=== PATIENT | male | born 1965 | race Caucasian/White ===

== ENCOUNTER 2017-03-10 23:40 | Observation (INO) | payer MEDICAID ==
--- NOTE | 2017-03-11 00:05 | EDM.PDOC ---
ED HPI GENERAL MEDICAL PROBLEM - General Chief Complaint: Chest Pain Stated Complaint: Chest and jaw pain Time Seen by Provider: 03/10/17 23:41 Source of Information: Reports: Patient, RN, RN Notes Reviewed History Limitations: Reports: No Limitations - History of Present Illness INITIAL COMMENTS - FREE TEXT/NARRATIVE: Patient presents to the ED at [facility] complaining of chest pain and right/left jaw pain that started around 10 pm tonight. Patient states he took 4 SL Nitro prior to presentation. Patient states the Nitro did not help. He states he got a slight headache from taking the Nitro. Does have some nausea. No diarrhea or vomiting. No focal neurological deficits. Patient states he had SOB but resolved upon arrival. Patient has a history of heart valve replacement when he was 7 years old. He states he had heart stents placed about 3-4 years ago. He also has a history of respiratory failure that required intubation. Onset Date: 03/10/17 Onset Time: 22:00 Duration: Constant Location: Reports: Neck, Chest Quality: Reports: Dull, Pressure Severity: Moderate Improves with: Reports: None Worsens with: Reports: Movement Context: Denies: Activity, Exercise, Lifting, Sick Contact, Trauma Treatments TRAVEL INSURANCE AGENT: Reports: Nitroglycerin (x4 with no relief of symptoms) - Related Data Allergies Allergy/AdvReac Type Severity Reaction Status Date / Time No Known Allergies Allergy Verified 03/11/17 01:29 Home Meds: Home Meds Ibuprofen 400 mg PO Q4H PRN 09/01/14 [History] Aspirin [Damián Chewable] 81 mg PO DAILY 02/15/15 [History] Carvedilol [Coreg] 12.5 mg PO BID 02/15/15 [History] Clopidogrel [Plavix] 75 mg PO DAILY 02/15/15 [History] Ferrous Sulfate 325 mg PO DAILY 02/15/15 [History] Furosemide [Lasix] 20 mg PO DAILY 02/15/15 [History] Levothyroxine [Sythroid] 100 mcg PO DAILY 02/15/15 [History] Nitroglycerin [Nitrostat] 0.4 mg SL Q5M 02/15/15 [History] SitaGLIPtin [Januvia] 50 mg PO BID 02/15/15 [History] atorvaSTATin [Lipitor] 80 mg PO DAILY 02/15/15 [History] metFORMIN [Glucophage] 1,000 mg PO BIDMEALS 02/15/15 [History] Past Medical History Cardiovascular History: Reports: Heart Valve Replacement, Hypertension, [place], Stents Respiratory History: Reports: Intubation, Previous, Other (See Below) ( Respiratory failure) Social & Family History - Family History Family Medical History: Noncontributory - Tobacco Use Smoking Status *Q: Current Every Day Smoker Years of Tobacco use: 25 Used Tobacco, but Quit: No Second Hand Smoke Exposure: Yes - Tobacco Core Measures Tobacco Use/Smoking Within Last 30 Days: Refused Screening - Alcohol Use Days Per Week of Alcohol Use: 0 - Recreational Drug Use Recreational Drug Use: No Drug Use in Last 12 Months: No ED ROS GENERAL - Review of Systems Review Of Systems: See Below Constitutional: Denies: Fever, Chills, Weakness Respiratory: Reports: Shortness of Breath. Denies: Cough, Sputum Cardiovascular: Reports: Chest Pain, Blood Pressure Problem, Lightheadedness, Orthopnea, Palpitations. Denies: Edema GI/Abdominal: Reports: Nausea. Denies: Abdominal Pain, Diarrhea, Vomiting Skin: Reports: No Symptoms Neurological: Reports: Headache. Denies: Dizziness, Numbness, Paresthesia, Tingling ED EXAM, GENERAL - Physical Exam Exam: See Below Exam Limited By: No Limitations General Appearance: Alert, Anxious Respiratory/Chest: No Respiratory Distress, Lungs Clear, Decreased Breath Sounds Cardiovascular: Tachycardia, Extra Beats Peripheral Pulses: 2+: Radial (L), Radial (R) GI/Abdominal: Soft, Non-Tender, Abnormal Bowel Sounds (Hypoactive) Neurological: Alert, Oriented Skin Exam: Warm, Dry, Intact, Normal Color, No Rash EKG INTERPRETATION EKG Date: 03/10/17 Time: 23:48 Rhythm: a-fib Rate (beats/min): 165 [place]: normal P-wave: absent QRS: RBBB ST-T: depressed QT: normal KS/PQ Interval: Absent EKG Interpretation Comments: Atrial Fibrillation with Rapid Ventricular Response Pattern consistent with pulmonary disease Incomplete RBBB Possible RVH ST depression, consider subendocardial injury EKG #2 03/11/2017 01:38 Sinus Rhythm Incomplete RBBB Possible RVH Septal MD ST Depression, consider subendocardial injury Course - Orders/Labs/Meds Orders: Active Orders 24 hr Category Date Time Status EKG 12 Lead [EKG Documentation Completion] [RC] STAT Care 03/11/17 01:27 Active Chest 1V Frontal [CR] Stat Exams 03/11/17 00:30 Taken Magnesium Sulfate/Water [Magnesium Sulfate 2 GM in Med 03/11/17 01:15 Active Water 50 ML] 2 gm Premix Bag 1 bag IV ONETIME Sodium Chloride 0.9% [Normal Saline] 1,000 ml Med 03/11/17 00:15 Active IV ASDIRECTED Sodium Chloride 0.9% [Saline Flush] Med 03/11/17 00:06 Active 10 ml FLUSH ASDIRECTED PRN Peripheral IV Insertion Adult [OM.PC] Routine Oth 03/11/17 00:06 Ordered Medication Orders Sodium Chloride (Normal Saline) 1,000 mls @ 999 mls/hr IV ASDIRECTED SHALINI Magnesium Sulfate 2 gm/ Premix 50 mls @ 25 mls/hr IV ONETIME ONE Stop: 03/11/17 03:14 Sodium Chloride (Saline Flush) 10 ml FLUSH ASDIRECTED PRN PRN Reason: Keep Vein Open Labs: Laboratory Tests 03/11/17 03/11/17 03/11/17 Range/Units 00:27 00:27 00:27 WBC 13.5 H (4.0-10.0) x10^3/uL RBC 4.83 (4.5-6.0) x10^6/uL Hgb 13.4 L (14.0-18.0) g/dL Hct 40.6 (40.0-52.0) % MCV 84.1 D (78.0-93.0) fL MCH 27.7 (26.0-32.0) pg MCHC 33.0 (32.0-36.0) g/dL RDW Coeff of Prashant 17.1 H (10.0-15.0) % Plt Count 268 D (130-400) x10^3/uL Neut % (Auto) 79.1 (50.0-80.0) % Lymph % (Auto) 13.7 L (25.0-50.0) % [place] % (Auto) 6.6 (2.0-11.0) % Eos % (Auto) 0.5 (0.0-4.0) % Baso % (Auto) 0.1 L (0.2-1.2) % Sodium 139 (136-145) mmol/L Potassium 3.6 (3.5-5.1) mmol/L Chloride 101 (98-107) mmol/L Carbon Dioxide 23 (21-32) mmol/L BUN 29 H (7-18) mg/dL Creatinine 1.2 (0.70-1.30) mg/dL Est Cr Clr Drug Dosing TNP Estimated GFR (MDRD) > 60 Glucose 245 H (74-106) mg/dL Lactic Acid 3.6 H (0.4-2.0) mmol/L Calcium 8.8 (8.5-10.1) mg/dL Phosphorus 3.3 (2.6-4.7) mg/dL Magnesium 1.5 L (1.8-2.4) mg/dL Creatine Kinase 59 (39-308) U/L Creatine Kinase Index 3.9 (0.0-4.0) % CK-MB (CK-2) 2.3 (0.0-3.6) ng/mL POC Troponin I (0.00-0.08) ng/mL C-Reactive Protein 1.0 H (<=0.9) mg/dL 03/11/17 Range/Units 00:33 WBC (4.0-10.0) x10^3/uL RBC (4.5-6.0) x10^6/uL Hgb (14.0-18.0) g/dL Hct (40.0-52.0) % MCV (78.0-93.0) fL MCH (26.0-32.0) pg MCHC (32.0-36.0) g/dL RDW Coeff of Prashant (10.0-15.0) % Plt Count (130-400) x10^3/uL Neut % (Auto) (50.0-80.0) % Lymph % (Auto) (25.0-50.0) % [place] % (Auto) (2.0-11.0) % Eos % (Auto) (0.0-4.0) % Baso % (Auto) (0.2-1.2) % Sodium (136-145) mmol/L Potassium (3.5-5.1) mmol/L Chloride (98-107) mmol/L Carbon Dioxide (21-32) mmol/L BUN (7-18) mg/dL Creatinine (0.70-1.30) mg/dL Est Cr Clr Drug Dosing Estimated GFR (MDRD) Glucose (74-106) mg/dL Lactic Acid (0.4-2.0) mmol/L Calcium (8.5-10.1) mg/dL Phosphorus (2.6-4.7) mg/dL Magnesium (1.8-2.4) mg/dL Creatine Kinase (39-308) U/L Creatine Kinase Index (0.0-4.0) % CK-MB (CK-2) (0.0-3.6) ng/mL POC Troponin I 0.06 (0.00-0.08) ng/mL C-Reactive Protein (<=0.9) mg/dL Meds: Medications Generic Name Dose Route Start Last Admin Trade Name Freq PRN Reason Stop Dose Admin Sodium Chloride 1,000 mls @ 999 mls/hr 03/11/17 00:15 Normal Saline IV ASDIRECTED SHALINI Magnesium Sulfate 2 gm/ Premix 50 mls @ 25 mls/hr 03/11/17 01:15 IV 03/11/17 03:14 ONETIME ONE Sodium Chloride 10 ml 03/11/17 00:06 Saline Flush FLUSH ASDIRECTED PRN Keep Vein Open Discontinued Medications Generic Name Dose Route Start Last Admin Trade Name Freq PRN Reason Stop Dose Admin Diltiazem HCl 20 mg 03/11/17 00:07 Diltiazem IVPUSH 03/11/17 00:08 ONETIME ONE - Radiology Interpretation Free Text/Narrative:: CXR: Possible cardiomegaly and pulmonary edema - see scanned report in EMR Departure - Departure Time of Disposition: 01:58 Disposition: Refer to Observation Condition: fair Clinical Impression: Uncontrolled atrial fibrillation, Hypomagnesemia Hyperglycemia due to type 2 diabetes mellitus Qualifiers: Diabetes mellitus nursing home insulin use: without intermodal dispatcher use Qualified Code(s ): E11.65 - Type 2 diabetes mellitus with hyperglycemia - Problem List Review Problem List Initiated/Reviewed/Updated: Yes - My Orders Last 24 Hours: My Active Orders 03/11/17 00:06 Sodium Chloride 0.9% [Saline Flush] 10 ml FLUSH ASDIRECTED PRN Peripheral IV Insertion Adult [OM.PC] Routine 03/11/17 00:15 Sodium Chloride 0.9% [Normal Saline] 1,000 ml IV ASDIRECTED 03/11/17 00:30 Chest 1V Frontal [CR] Stat 03/11/17 01:15 Magnesium Sulfate/Water [Magnesium Sulfate 2 GM in Water 50 ML] 2 gm Premix Bag 1 bag IV ONETIME 03/11/17 01:27 EKG 12 Lead [EKG Documentation Completion] [RC] STAT - Assessment/Plan Admission H&P: Please use this note as an admission H&P Last 24 Hours: My Active Orders 03/11/17 00:06 Sodium Chloride 0.9% [Saline Flush] 10 ml FLUSH ASDIRECTED PRN Peripheral IV Insertion Adult [OM.PC] Routine 03/11/17 00:15 Sodium Chloride 0.9% [Normal Saline] 1,000 ml IV ASDIRECTED 03/11/17 00:30 Chest 1V Frontal [CR] Stat 03/11/17 01:15 Magnesium Sulfate/Water [Magnesium Sulfate 2 GM in Water 50 ML] 2 gm Premix Bag 1 bag IV ONETIME 03/11/17 01:27 EKG 12 Lead [EKG Documentation Completion] [RC] STAT Plan: Discussed labs, EKG, and xray with patient. I did recommend being transferred and seen in [place]. Patient did refuse and only wants to be admitted at [facility].
[2017-03-11] MEDS ORDERED: Sodium Chloride 0.9% 10 ML Syringe FLUSH PRN (00:06)
[2017-03-11] MEDS ORDERED: Diltiazem 25 MG/5 ML SDV IVPUSH ONE (00:07)
[2017-03-11] MEDS ORDERED: Sodium Chloride 0.9% 1,000 ML IV SCH (00:15)
[2017-03-11 01:03] LABS: CHLORIDE,CL 101 mmol/L (98-107); SODIUM,NA 139 mmol/L (136-145)
[2017-03-11] MEDS ORDERED: Magnesium Sulfate/Water 2 GM in Premix Bag 1 BAG IV ONE (01:15)
[2017-03-11] MEDS ORDERED: Polyethylene Glycol 3350 Powder 17 GM Packet PO PRN (02:29)
[2017-03-11] MEDS ORDERED: Acetaminophen 325 MG Tab PO PRN (02:29)
[2017-03-11] MEDS ORDERED: Ondansetron 4 MG Tab.DIS PO PRN (02:29)
[2017-03-11] MEDS ORDERED: Docusate Sodium 100 MG Cap PO PRN (02:29)
--- NOTE | 2017-03-11 02:41 | PCM.HP ---
H&P History of Present Illness - General Date of Service: 03/11/17 Admit Problem/Dx: Uncontrolled Afib Hypomagnesia Hyperglycemia Source of Information: Patient, RN, RN Notes Reviewed History Limitations: Reports: No Limitations - History of Present Illness Initial Comments - Free Text/Narative: Patient presents to the ED at [facility] per ped complaining of chest pain and right/left jaw pain that started around 10 pm tonight. Patient states he took 4 SL Nitro prior to presentation. Patient states the Nitro did not help. He states he got a slight headache from taking the Nitro. Does have some nausea. No diarrhea or vomiting. No focal neurological deficits. Patient states he had SOB but resolved upon arrival. Patient has a history of heart valve replacement when he was 7 years old. He states he had heart stents placed about 3-4 years ago. He also has a history of respiratory failure that required intubation. During his ER admission, initial EKG showed uncontrolled Afib with a rate in the 170's, so patient received 20 mg of IV Cardizem and did convert to a NSR in the 80's. Blood pressure was much improved after Cardizem as well. Chest discomfort and jaw pain also resolved. Symptom Onset Date: 03/10/17 mid sternal chest Pain Score (Numeric/FACES): 5 Bilateral jaw Pain Score (Numeric/FACES): 8 - Related Data Allergies/Adverse Reactions: Allergies Allergy/AdvReac Type Severity Reaction Status Date / Time No Known Allergies Allergy Verified 03/11/17 02:01 Home Medications: Home Meds Ibuprofen 400 mg PO Q4H PRN 09/01/14 [History] Aspirin [Damián Chewable] 81 mg PO DAILY 02/15/15 [History] Carvedilol [Coreg] 12.5 mg PO BID 02/15/15 [History] Clopidogrel [Plavix] 75 mg PO DAILY 02/15/15 [History] Ferrous Sulfate 325 mg PO DAILY 02/15/15 [History] Furosemide [Lasix] 20 mg PO DAILY 02/15/15 [History] Levothyroxine [Sythroid] 100 mcg PO DAILY 02/15/15 [History] Nitroglycerin [Nitrostat] 0.4 mg SL Q5M 02/15/15 [History] SitaGLIPtin [Januvia] 50 mg PO BID 02/15/15 [History] atorvaSTATin [Lipitor] 80 mg PO DAILY 02/15/15 [History] metFORMIN [Glucophage] 1,000 mg PO BIDMEALS 02/15/15 [History] Past Medical History Cardiovascular History: Reports: Heart Valve Replacement, Hypertension, [place], Stents Respiratory History: Reports: Intubation, Previous, Other (See Below) ( Respiratory failure) Social & Family History - Family History Family Medical History: Noncontributory - Tobacco Use Smoking Status *Q: Current Every Day Smoker Years of Tobacco use: 25 Used Tobacco, but Quit: No Second Hand Smoke Exposure: Yes - Alcohol Use Days Per Week of Alcohol Use: 0 - Recreational Drug Use Recreational Drug Use: No Drug Use in Last 12 Months: No - Sexual History Sexual History: Reports: None - Living Situation & Occupation Living situation: Reports: Single, with Family Occupation: Unemployed H&P Review of Systems - Review of Systems: Review Of Systems: See Below General: Denies: Fever, Chills, Weakness Pulmonary: Reports: Shortness of Breath. Denies: Cough, Sputum Cardiovascular: Reports: Palpitations, Blood Pressure Problem. Denies: Chest Pain Gastrointestinal: Reports: No Symptoms. Denies: Abdominal Pain, Nausea, Vomiting Skin: Reports: No Symptoms Neurological: Reports: No Symptoms. Denies: Dizziness, Headache, Numbness, Paresthesia, Tingling Exam - Exam Exam: See Below - Vital Signs Vital Signs: Last Vital Signs Temp 36.4 C 03/10/17 23:40 Pulse 164 H 03/10/17 23:40 Resp 14 03/10/17 23:40 BP 144/122 H 03/10/17 23:40 Pulse Ox 95 03/11/17 02:20 Weight: 108.862 kg - Exam General: Alert, Oriented Lungs: Clear to Auscultation, Normal Respiratory Effort, Decreased Breath Sounds Cardiovascular: Regular Rate, Regular Rhythm, Normal S1, Normal S2 Abdomen: Soft, Hypoactive Bowel Sounds. No: Tenderness Extremities: Normal Inspection, Normal Pulses Skin: Warm, Dry, Intact Neuro Extensive - Mental Status: Alert, Oriented x3 - Patient Data Result Diagrams: 03/11/17 00:27 03/11/17 00:27 *Q Meaningful Use (ADM) - VTE *Q VTE Criteria *Q: Patient is already taking Coumadin - VTE Risk Assess *Q Each Risk Factor Represents 1 Point: Age 41 - 59 years, Obesity (BMI greater than 30) Total Score 1 Point Risk Factors: 2 - Stroke *Q Stroke Criteria *Q: Patient is already taking Coumadin daily Aspirin Contraindications Stroke *Q: Other (Use Special Inst) (Patient currently taking Coumadin daily) - AMI *Q AMI Criteria *Q: - Problem List (1) Uncontrolled atrial fibrillation SNOMED Code(s): 560230829 ICD Code: I48.91 - UNSPECIFIED ATRIAL FIBRILLATION Status: Acute Priority : High Current Visit: Yes Onset Date: ~03/10/17 Problem Details: Patient already diagnosed with Afib; uncontrolled today and will need rate control (2) Hypomagnesemia SNOMED Code(s): 029324249 ICD Code: E83.42 - HYPOMAGNESEMIA Status: Acute Priority: Medium Current Visit: Yes Onset Date: ~03/10/17 (3) Hyperglycemia due to type 2 diabetes mellitus SNOMED Code(s): 580668392911541, 504647348225655 ICD Code: E11.65 - TYPE 2 DIABETES MELLITUS WITH HYPERGLYCEMIA Status: Chronic Priority: Medium Current Visit: Yes Qualifiers: Diabetes mellitus custodial insulin use: without custodial use Qualified Code(s): E11.65 - Type 2 diabetes mellitus with hyperglycemia (4) CHF, Congestive heart failure SNOMED Code(s): 81078640 ICD Code: I50.9 - HEART FAILURE, UNSPECIFIED Status: Chronic Current Visit: No (5) COPD, Moderate chronic obstructive pulmonary disease SNOMED Code(s): 914059899 ICD Code: J44.9 - CHRONIC OBSTRUCTIVE PULMONARY DISEASE, UNSPECIFIED Status : Chronic Current Visit: No Problem List Initiated/Reviewed/Updated: Yes Orders Last 24hrs: Active Orders 24 hr Category Date Time Status Ambulate [RC] ASDIRECTED Care 03/11/17 02:29 Ordered Blood Glucose Check, Bedside [RC] QIDACANDBED Care 03/11/17 02:29 Ordered Cardiac Monitoring [RC] CONTINUOUS Care 03/11/17 02:30 Ordered EKG 12 Lead [EKG Documentation Completion] [RC] ROUTINE Care 03/11/17 08:00 Ordered EKG 12 Lead [EKG Documentation Completion] [RC] STAT Care 03/11/17 01:35 Active Height and Weight [RC] UPON Care 03/11/17 02:29 Ordered Intake and Output [RC] QSHIFT Care 03/11/17 02:30 Ordered May Shower [RC] ASDIRECTED Care 03/11/17 02:29 Ordered Oxygen Therapy [RC] PRN Care 03/11/17 02:29 Ordered VTE/DVT Education [RC] PER UNIT ROUTINE Care 03/11/17 02:29 Ordered Vital Signs [RC] Q4H Care 03/11/17 02:29 Ordered [place] [employer] Diet [DIET] Diet 03/11/17 Breakfast Ordered B-TYPE NATRIURETIC PEPTIDE,BNP [CHEM] Routine Lab 03/11/17 05:11 Ordered BASIC METABOLIC PANEL,BMP [CHEM] Routine Lab 03/11/17 05:11 Ordered CBC WITH AUTO DIFF [HEME] Routine Lab 03/11/17 05:11 Ordered CK W CKMB [CHEM] Routine Lab 03/11/17 05:11 Ordered INR,PT,PROTHROMBIN TIME [COAG] Routine Lab 03/11/17 05:11 Ordered MAGNESIUM [CHEM] Routine Lab 03/11/17 05:11 Ordered TROPONIN I [CHEM] Routine Lab 03/11/17 05:11 Ordered Acetaminophen [Tylenol] Med 03/11/17 02:29 Ordered 650 mg PO Q4H PRN Digoxin [Lanoxin] Med 03/11/17 02:45 Ordered 125 mcg PO DAILY Docusate Sodium [Colace] Med 03/11/17 02:29 Ordered 100 mg PO BID PRN Ondansetron [Zofran ODT] Med 03/11/17 02:29 Ordered 4 mg PO Q6H PRN Polyethylene Glycol 3350 [MiraLAX] Med 03/11/17 02:29 Ordered 17 gm PO DAILY PRN Resuscitation Status Routine Resus Stat 03/11/17 02:29 Ordered Medication Orders Acetaminophen (Tylenol) 650 mg PO Q4H PRN PRN Reason: Pain (Mild 1-3)/fever Digoxin (Lanoxin) 125 mcg PO DAILY SHALINI Docusate Sodium (Colace) 100 mg PO BID PRN PRN Reason: Constipation Sodium Chloride (Normal Saline) 1,000 mls @ 999 mls/hr IV ASDIRECTED [facility] Last Admin: 03/11/17 01:00 Dose: 999 mls/hr Magnesium Sulfate 2 gm/ Premix 50 mls @ 25 mls/hr IV ONETIME ONE Stop: 03/11/17 03:14 Last Admin: 03/11/17 02:28 Dose: 25 mls/hr Ondansetron HCl (Zofran Odt) 4 mg PO Q6H PRN PRN Reason: nausea, able to take PO Polyethylene Glycol (Miralax) 17 gm PO DAILY PRN PRN Reason: Constipation Sodium Chloride (Saline Flush) 10 ml FLUSH ASDIRECTED PRN PRN Reason: Keep Vein Open Assessment/Plan Comment:: 51 yo male with a PMH of DM Type II, COPD, CHF, and Afib currently on Coumadin is admitted for uncontrolled Afib, Hypomagnesia, and Hyperglycemia in the setting of DM Type II. No IVF is warrant. Will start patient on Digoxin for rate control. Continue all medications from home. Check blood sugars QIDAC and HS. Early ambulation for DVT prophylaxis and continue Coumadin. Start telemetry for continued monitoring. Patient wishes to be a Code I. Patient would not like to be transferred to a higher level of care during this admission if at all possible. I believe patient will be admitted for <48 hours. Will continue home medications for chronic medical problems. No changes needed at this time.
[2017-03-11] MEDS: Digoxin 125 MCG Tab PO SCH ×2 (03:00→08:53)
[2017-03-11 07:16] LABS: CHLORIDE,CL 104 mmol/L (98-107); SODIUM,NA 140 mmol/L (136-145)
[2017-03-11] MEDS ORDERED: Heparin Sodium/0.45% NaCl 25,000 UNITS/500 ML BAG IV SCH ×2 (08:15→08:30)
--- NOTE | 2017-03-11 08:25 | PCM.DCSUM1 ---
Discharge Summary - Hospital Course HPI Initial Comments: Patient presents to the ED at [facility] per [facility]meet complaining of chest pain and right/left jaw pain that started around 10 pm tonight. Patient states he took 4 SL Nitro prior to presentation. Patient states the Nitro did not help. He states he got a slight headache from taking the Nitro. Does have some nausea. No diarrhea or vomiting. No focal neurological deficits. Patient states he had SOB but resolved upon arrival. Patient has a history of heart valve replacement when he was 7 years old. He states he had heart stents placed about 3-4 years ago. He also has a history of respiratory failure that required intubation. During his ER admission, initial EKG showed uncontrolled Afib with a rate in the 170's, so patient received 20 mg of IV Cardizem and did convert to a NSR in the 80's. Blood pressure was much improved after Cardizem as well. Chest discomfort and jaw pain also resolved. - Discharge Data Discharge Date: 03/11/17 Discharge Disposition: Home, Self-Care 01 Condition: Good - Discharge Diagnosis/Problem(s) (1) Uncontrolled atrial fibrillation SNOMED Code(s): 311143487 ICD Code: I48.91 - UNSPECIFIED ATRIAL FIBRILLATION Status: Acute Priority : High Current Visit: Yes Onset Date: ~03/10/17 Problem Details: Patient already diagnosed with Afib; uncontrolled today and will need rate control (2) Hypomagnesemia SNOMED Code(s): 890691296 ICD Code: E83.42 - HYPOMAGNESEMIA Status: Acute Priority: Medium Current Visit: Yes Onset Date: ~03/10/17 (3) Hyperglycemia due to type 2 diabetes mellitus SNOMED Code(s): 317995095203990, 186116740402694 ICD Code: E11.65 - TYPE 2 DIABETES MELLITUS WITH HYPERGLYCEMIA Status: Chronic Priority: Medium Current Visit: Yes Qualifiers: Diabetes mellitus [employer] insulin use: without [employer] use Qualified Code(s): E11.65 - Type 2 diabetes mellitus with hyperglycemia (4) CHF, Congestive heart failure SNOMED Code(s): 56970467 ICD Code: I50.9 - HEART FAILURE, UNSPECIFIED Status: Chronic Current Visit: No (5) COPD, Moderate chronic obstructive pulmonary disease SNOMED Code(s): 164768592 ICD Code: J44.9 - CHRONIC OBSTRUCTIVE PULMONARY DISEASE, UNSPECIFIED Status : Chronic Current Visit: No (6) Elevated troponin SNOMED Code(s): 104323500, 624159867 ICD Code: R74.8 - ABNORMAL LEVELS OF OTHER SERUM ENZYMES Status: Acute Priority: High Current Visit: Yes Onset Date: ~03/11/17 - Patient Summary/Data Operative Procedure(s) Performed: None Labs Pending at D/C: None Planned Operative Procedure(s) after DC: Angiogram Hospital Course: Elevated Troponin of 16.281 this AM. Patient is currently chest pain free and no EKG changes. Discussed case with Dr. Madison, Cardiology and Dr. Jones, admitting provider. It is not felt this is a true [place] given history of CHF, pain free, and no EKG changes. Patient will be monitored in [place] with possible further work up. - Patient Instructions Diet: NPO Activity: Bedrest Driving: Do Not Drive Showering/Bathing: Shower in AM - Discharge Plan Home Medications: Home Meds Ibuprofen 400 mg PO Q4H PRN 09/01/14 [History] Aspirin [Damián Chewable] 81 mg PO DAILY 02/15/15 [History] Carvedilol [Coreg] 12.5 mg PO BID 02/15/15 [History] Clopidogrel [Plavix] 75 mg PO DAILY 02/15/15 [History] Ferrous Sulfate 325 mg PO DAILY 02/15/15 [History] Furosemide [Lasix] 20 mg PO DAILY 02/15/15 [History] Levothyroxine [Sythroid] 100 mcg PO DAILY 02/15/15 [History] Nitroglycerin [Nitrostat] 0.4 mg SL Q5M 02/15/15 [History] SitaGLIPtin [Januvia] 50 mg PO BID 02/15/15 [History] atorvaSTATin [Lipitor] 80 mg PO DAILY 02/15/15 [History] metFORMIN [Glucophage] 1,000 mg PO BIDMEALS 02/15/15 [History] Forms: Interfacility Transfer EMTALA Referrals: Jimmy Dominguez MD [ED Physician] - - Discharge Summary/Plan Comment DC Time >30 min.: No - General Info Date of Service: 03/11/17 Functional Status: Reports: pain controlled, urinating - Review of Systems General: Denies: Fever, Weakness, Fatigue Pulmonary: Denies: shortness of breath, hemoptysis Cardiovascular: Denies: Chest Pain, Palpitations, Lightheadedness Gastrointestinal: Denies: Abdominal pain, Nausea, Vomiting Skin: Reports: no symptoms Neurological: Reports: No Symptoms. Denies: Headache, Numbness, Paresthesia, Tingling - Patient Data Vitals - Most Recent: Last Vital Signs Temp 36.2 C 03/11/17 06:00 Pulse 71 03/11/17 06:00 Resp 18 03/11/17 06:00 BP 100/47 L 03/11/17 06:00 Pulse Ox 98 03/11/17 07:45 Weight - Most Recent: 108.862 kg I&O - Last 24 hours: Intake & Output 03/10/17 03/11/17 03/11/17 22:59 06:59 14:59 Intake Total 540 Output Total 300 Balance 240 Lab Results - Last 24 hrs: Laboratory Results - last 24 hr 03/11/17 03/11/17 03/11/17 Range/Units 06:18 06:19 06:19 WBC 9.0 (4.0-10.0) x10^3/uL RBC 4.46 L (4.5-6.0) x10^6/uL Hgb 12.3 L (14.0-18.0) g/dL Hct 37.7 L (40.0-52.0) % MCV 84.5 (78.0-93.0) fL MCH 27.6 (26.0-32.0) pg MCHC 32.6 (32.0-36.0) g/dL RDW Coeff of Prashant 16.9 H (10.0-15.0) % Plt Count 239 (130-400) x10^3/uL Neut % (Auto) 74.5 (50.0-80.0) % Lymph % (Auto) 15.8 L (25.0-50.0) % [place] % (Auto) 8.5 (2.0-11.0) % Eos % (Auto) 1.1 (0.0-4.0) % Baso % (Auto) 0.1 L (0.2-1.2) % PT 27.3 H D (10.0-12.8) SEC INR 2.4 (2.0-3.5) Sodium (136-145) mmol/L Potassium (3.5-5.1) mmol/L Chloride (98-107) mmol/L Carbon Dioxide (21-32) mmol/L BUN (7-18) mg/dL Creatinine (0.70-1.30) mg/dL Est Cr Clr Drug Dosing mL/min Estimated GFR (MDRD) Glucose (74-106) mg/dL POC Glucose 132 H (74-106) mg/dL Hemoglobin A1c (4.5-6.2) % Calcium (8.5-10.1) mg/dL Magnesium (1.8-2.4) mg/dL Creatine Kinase (39-308) U/L Creatine Kinase Index (0.0-4.0) % CK-MB (CK-2) (0.0-3.6) ng/mL Troponin I (<=0.056) ng/mL B-Natriuretic Peptide (<=125) pg/mL 03/11/17 03/11/17 Range/Units 06:19 06:19 WBC (4.0-10.0) x10^3/uL RBC (4.5-6.0) x10^6/uL Hgb (14.0-18.0) g/dL Hct (40.0-52.0) % MCV (78.0-93.0) fL MCH (26.0-32.0) pg MCHC (32.0-36.0) g/dL RDW Coeff of Prashant (10.0-15.0) % Plt Count (130-400) x10^3/uL Neut % (Auto) (50.0-80.0) % Lymph % (Auto) (25.0-50.0) % [place] % (Auto) (2.0-11.0) % Eos % (Auto) (0.0-4.0) % Baso % (Auto) (0.2-1.2) % PT (10.0-12.8) SEC INR (2.0-3.5) Sodium 140 (136-145) mmol/L Potassium 3.9 (3.5-5.1) mmol/L Chloride 104 (98-107) mmol/L Carbon Dioxide 27 (21-32) mmol/L BUN 29 H (7-18) mg/dL Creatinine 1.1 (0.70-1.30) mg/dL Est Cr Clr Drug Dosing 70.08 mL/min Estimated GFR (MDRD) > 60 Glucose 137 H (74-106) mg/dL POC Glucose (74-106) mg/dL Hemoglobin A1c 6.9 H (4.5-6.2) % Calcium 8.5 (8.5-10.1) mg/dL Magnesium 2.1 (1.8-2.4) mg/dL Creatine Kinase 525 H* (39-308) U/L Creatine Kinase Index 11.9 H (0.0-4.0) % CK-MB (CK-2) 62.5 H (0.0-3.6) ng/mL Troponin I 16.281 H* (<=0.056) ng/mL B-Natriuretic Peptide 1224 H (<=125) pg/mL Med Orders - Current: Current Medications Acetaminophen (Tylenol) 650 mg PO Q4H PRN PRN Reason: Pain (Mild 1-3)/fever Digoxin (Lanoxin) 125 mcg PO DAILY [facility] Last Admin: 03/11/17 03:00 Dose: 125 mcg Docusate Sodium (Colace) 100 mg PO BID PRN PRN Reason: Constipation Sodium Chloride (Normal Saline) 1,000 mls @ 999 mls/hr IV ASDIRECTED [facility] Last Admin: 03/11/17 01:00 Dose: 999 mls/hr Ondansetron HCl (Zofran Odt) 4 mg PO Q6H PRN PRN Reason: nausea, able to take PO Polyethylene Glycol (Miralax) 17 gm PO DAILY PRN PRN Reason: Constipation Sodium Chloride (Saline Flush) 10 ml FLUSH ASDIRECTED PRN PRN Reason: Keep Vein Open Discontinued Medications Diltiazem HCl (Diltiazem) 20 mg IVPUSH ONETIME ONE Stop: 03/11/17 00:08 Last Admin: 03/11/17 01:08 Dose: 20 mg Magnesium Sulfate 2 gm/ Premix 50 mls @ 25 mls/hr IV ONETIME ONE Stop: 03/11/17 03:14 Last Admin: 03/11/17 02:28 Dose: 25 mls/hr Heparin Sodium/Sodium Chloride (Heparin 25,000 Units In 1/2 Ns 500 Ml) 25,000 units in 500 mls @ 8,708.973 mls/hr IV TITRATE SHALINI; 4,000 UNITS/KG/HR PRN Reason: Protocol - Exam Quality Assessment: Reports: supplemental oxygen General: Reports: alert, oriented Neck: Reports: supple Lungs: Reports: Normal respiratory effort, Decreased breath sounds Cardiovascular: Reports: Regular Rate, Regular Rhythm, No Murmurs Abdomen: Reports: soft, no tenderness, abnormal bowel sounds (Hypoactive) Skin: Reports: warm, dry, intact Neurological: Reports: no new focal deficit EKG INTERPRETATION EKG Date: 03/11/17 Time: 07:34 Rhythm: NSR Rate (beats/min): 81 [place]: normal P-wave: present QRS: normal ST-T: normal QT: normal CA/PQ Interval: 0.18 Comparison: no change EKG Interpretation Comments: Sinus Rhythm Indeterminate axis Lateral ST-T changes are nonspecific *Q Meaningful Use (DIS) - VTE *Q VTE Criteria *Q: Currently on Coumadin, ASA, Plavix - Stroke *Q Stroke Criteria *Q: Aspirin Contraindications Stroke *Q: Other (Use Special Inst) (Patient currently taking Coumadin daily) - AMI *Q AMI Criteria *Q: Current on Coumadin, ASA, Plavix
[2017-03-11 10:09] VITALS: BP 102/56
== END 2017-03-11 10:35 | disposition home or self-care (01) ==
LOC: VM.ED 23:40 → VM.MS 03-11 02:00
PROVIDERS: ADMIT Nurse Practitioner Family; ATTEND Nurse Practitioner Family
DX: R07.9 Chest pain, unspecified (principal); R68.84 Jaw pain; F17.210 Nicotine dependence, cigarettes, uncomplicated; I48.91 Unspecified atrial fibrillation; E83.42 Hypomagnesemia; E11.65 Type 2 diabetes mellitus with hyperglycemia; I50.9 Heart failure, unspecified; J44.9 Chronic obstructive pulmonary disease, unspecified; R74.8 Abnormal levels of other serum enzymes; Z79.84 Long term (current) use of oral hypoglycemic drugs; Z79.82 Long term (current) use of aspirin; Z79.02 Long term (current) use of antithrombotics/antiplatelets; Z79.899 Other long term (current) drug therapy
CPT/HCPCS: 36415; 71010; 80048; 82550; 82553; 82962; 83036; 83605; 83735; 83880; 84100; 84443; 84484; 85025; 85610; 86140; 93005; 94760; 96361; 96365; 96366; 96367; 96375; 99285; A9270; G0378; J1644; J7030; 96374; J3475; J3490

== ENCOUNTER 2017-03-27 13:12 | Emergency (ER) | payer MEDICAID ==
[2017-03-27 13:24] VITALS: BP 128/70
--- NOTE | 2017-03-27 13:24 | EDM.PDOC ---
ED HPI GENERAL MEDICAL PROBLEM - General Chief Complaint: Chest Pain Stated Complaint: Chest Pain Time Seen by Provider: 03/27/17 13:12 Source of Information: Reports: Patient, Provider, RN, RN Notes Reviewed History Limitations: Reports: No Limitations - History of Present Illness INITIAL COMMENTS - FREE TEXT/NARRATIVE: Patient is brought to the ED at [facility] from the [facility] with complaints of chest pain. Patient was seen in this ED 2 weeks ago for chest pain and was sent to [facility]. During his stay, his cardiac cath showed 80% mid RCA stenosis, therefore, 1 stent were placed to the mid RCA at that time. Patient was discharge home in satisfactory condition. He was advised to stop taking ASA in one month since he is already on Coumadin. Patient states his chest pain started last night. He did take 1 nitro SL which completely relieved his chest pain. This morning, he felt pressure under his sternum, so he took another nitro SL which helped relieve the pain. Patient continues to smoke cigarettes. He states he is currently under a lot of stress at home due to situational concerns. No SOB. No focal neurological complaints. Denies N/V/D. Onset Date: 03/26/17 Duration: Getting Worse, Waxing/Waning Location: Reports: Chest - Related Data Allergies Allergy/AdvReac Type Severity Reaction Status Date / Time No Known Allergies Allergy Verified 03/27/17 13:26 Home Meds: Home Meds Ibuprofen 400 mg PO Q4H PRN 09/01/14 [History] Aspirin [Damián Chewable] 81 mg PO DAILY 02/15/15 [History] Carvedilol [Coreg] 12.5 mg PO BID 02/15/15 [History] Clopidogrel [Plavix] 75 mg PO DAILY 02/15/15 [History] Ferrous Sulfate 325 mg PO DAILY 02/15/15 [History] Furosemide [Lasix] 40 mg PO DAILY 02/15/15 [History] Levothyroxine [Sythroid] 125 mcg PO DAILY 02/15/15 [History] Nitroglycerin [Nitrostat] 0.4 mg SL Q5M 02/15/15 [History] SitaGLIPtin [Januvia] 100 mg PO DAILY 02/15/15 [History] atorvaSTATin [Lipitor] 80 mg PO DAILY 02/15/15 [History] metFORMIN [Glucophage] 1,000 mg PO BIDMEALS 02/15/15 [History] Albuterol Sulfate [Proair Hfa] 8.5 gm IH Q4HR PRN 03/27/17 [History] Cyclobenzaprine [Flexeril] 5 mg PO TID PRN 03/27/17 [History] Isosorbide Mononitrate [Imdur] 30 mg PO DAILY 03/27/17 [History] Losartan [Cozaar] 25 mg PO DAILY 03/27/17 [History] Metoprolol Tartrate [Lopressor] 50 mg PO BID 03/27/17 [History] Pantoprazole Sodium [Protonix] 40 mg PO DAILY 03/27/17 [History] Ticagrelor [Brilinta] 90 mg PO BID 03/27/17 [History] Tiotropium Br/Olodaterol HCl [Stiolto Respimat Inhal [place]] 4 gm IH BID [History] Warfarin [Coumadin] 5 mg PO DAILY 03/27/17 [History] Past Medical History Cardiovascular History: Reports: Heart Valve Replacement, Hypertension, [place], Stents Respiratory History: Reports: Intubation, Previous, Other (See Below) ( Respiratory failure) Other Respiratory History: Respiratory failure Endocrine/Metabolic History: Reports: Diabetes, Type II - Infectious Disease History Infectious Disease History: Reports: Other (See Below) Social & Family History - Family History Family Medical History: Noncontributory - Tobacco Use Smoking Status *Q: Current Every Day Smoker Years of Tobacco use: 25 Packs/Tins Daily: 1 Used Tobacco, but Quit: No Second Hand Smoke Exposure: Yes - Caffeine Use Caffeine Use: Reports: Coffee - Alcohol Use Days Per Week of Alcohol Use: 0 - Recreational Drug Use Recreational Drug Use: No Drug Use in Last 12 Months: No - Sexual History Sexual History: Reports: None - Living Situation & Occupation Living situation: Reports: Single, with Family Occupation: Unemployed ED ROS GENERAL - Review of Systems Review Of Systems: See Below Constitutional: Denies: Fever, Chills, Weakness Respiratory: Denies: Shortness of Breath, Cough Cardiovascular: Reports: Chest Pain. Denies: Dyspnea on Exertion, Palpitations GI/Abdominal: Denies: Abdominal Pain, Nausea, Vomiting Skin: Reports: No Symptoms Neurological: Reports: No Symptoms. Denies: Dizziness, Headache ED EXAM, GENERAL - Physical Exam Exam: See Below Exam Limited By: No Limitations General Appearance: Alert, No Apparent Distress, Anxious, Obese Respiratory/Chest: No Respiratory Distress, Lungs Clear, Decreased Breath Sounds Cardiovascular: Regular Rate, Rhythm, No Edema, No Murmur Peripheral Pulses: 2+: Radial (L), Radial (R) GI/Abdominal: Soft, Non-Tender, Abnormal Bowel Sounds (Hypoactive) Neurological: Alert, Oriented Skin Exam: Warm, Dry, Intact, Normal Color, No Rash EKG INTERPRETATION EKG Date: 03/27/17 Time: 13:15 Rhythm: Other (Ectopic Atrial Rhythm) Rate (Beats/Min): 75 [place]: Normal P-Wave: Present QRS: Normal ST-T: Normal QT: Normal CO/PQ Interval: 0.15 Comparison: No Change EKG Interpretation Comments: 1. Ectopic Atrial Rhythm 2. Pattern consistent with Pulmonary disease 3. Possible right ventricular hypertrophy 4. Nonspecific ST elevation Course - Vital Signs Last Recorded V/S: Last Vital Signs Temp 35.9 C 03/27/17 13:12 Pulse 74 03/27/17 13:12 Resp 16 03/27/17 13:12 BP 128/70 03/27/17 13:12 Pulse Ox 97 03/27/17 13:12 - Orders/Labs/Meds Orders: Active Orders 24 hr Category Date Time Status EKG 12 Lead [EKG Documentation Completion] [RC] STAT Care 03/27/17 13:13 Active Chest 2V [CR] Stat Exams 03/27/17 13:13 Taken Labs: Laboratory Tests 03/27/17 03/27/17 03/27/17 Range/Units 14:14 14:14 14:14 WBC 12.4 H (4.0-10.0) x10^3/uL RBC 3.84 L (4.5-6.0) x10^6/uL Hgb 10.7 L D (14.0-18.0) g/dL Hct 32.5 L (40.0-52.0) % MCV 84.6 (78.0-93.0) fL MCH 27.9 (26.0-32.0) pg MCHC 32.9 (32.0-36.0) g/dL RDW Coeff of Prashant 17.6 H (10.0-15.0) % Plt Count 330 D (130-400) x10^3/uL Neut % (Auto) 68.1 (50.0-80.0) % Lymph % (Auto) 19.8 L (25.0-50.0) % [place] % (Auto) 7.8 (2.0-11.0) % Eos % (Auto) 3.9 (0.0-4.0) % Baso % (Auto) 0.4 (0.2-1.2) % PT 49.4 H D (10.0-12.8) SEC INR 4.3 H (2.0-3.5) Sodium 139 (136-145) mmol/L Potassium 4.2 (3.5-5.1) mmol/L Chloride 100 (98-107) mmol/L Carbon Dioxide 27 (21-32) mmol/L BUN 54 H D (7-18) mg/dL Creatinine 2.0 H (0.70-1.30) mg/dL Est Cr Clr Drug Dosing TNP Estimated GFR (MDRD) 35 Glucose 122 H (74-106) mg/dL Calcium 8.7 (8.5-10.1) mg/dL Corrected Calcium 8.94 (8.5-10.1) mg/dL Phosphorus 3.6 (2.6-4.7) mg/dL Magnesium 1.2 L (1.8-2.4) mg/dL Total Bilirubin 0.7 (0.2-1.0) mg/dL AST 26 (15-37) U/L ALT 30 (16-63) U/L Alkaline Phosphatase 74 (46-116) U/L Creatine Kinase 46 (39-308) U/L Creatine Kinase Index 1.5 (0.0-4.0) % CK-MB (CK-2) 0.7 (0.0-3.6) ng/mL Troponin I < 0.017 (<=0.056) ng/mL B-Natriuretic Peptide (<=125) pg/mL Total Protein 8.7 H (6.4-8.2) g/dL Albumin 3.7 (3.4-5.0) g/dL Globulin 5.0 Albumin/Globulin Ratio 0.74 06/16/17 Range/Units 14:14 WBC (4.0-10.0) x10^3/uL RBC (4.5-6.0) x10^6/uL Hgb (14.0-18.0) g/dL Hct (40.0-52.0) % MCV (78.0-93.0) fL MCH (26.0-32.0) pg MCHC (32.0-36.0) g/dL RDW Coeff of Prashant (10.0-15.0) % Plt Count (130-400) x10^3/uL Neut % (Auto) (50.0-80.0) % Lymph % (Auto) (25.0-50.0) % [place] % (Auto) (2.0-11.0) % Eos % (Auto) (0.0-4.0) % Baso % (Auto) (0.2-1.2) % PT (10.0-12.8) SEC INR (2.0-3.5) Sodium (136-145) mmol/L Potassium (3.5-5.1) mmol/L Chloride (98-107) mmol/L Carbon Dioxide (21-32) mmol/L BUN (7-18) mg/dL Creatinine (0.70-1.30) mg/dL Est Cr Clr Drug Dosing Estimated GFR (MDRD) Glucose (74-106) mg/dL Calcium (8.5-10.1) mg/dL Corrected Calcium (8.5-10.1) mg/dL Phosphorus (2.6-4.7) mg/dL Magnesium (1.8-2.4) mg/dL Total Bilirubin (0.2-1.0) mg/dL AST (15-37) U/L ALT (16-63) U/L Alkaline Phosphatase (46-116) U/L Creatine Kinase (39-308) U/L Creatine Kinase Index (0.0-4.0) % CK-MB (CK-2) (0.0-3.6) ng/mL Troponin I (<=0.056) ng/mL B-Natriuretic Peptide 869 H (<=125) pg/mL Total Protein (6.4-8.2) g/dL Albumin (3.4-5.0) g/dL Globulin Albumin/Globulin Ratio - Radiology Interpretation Free Text/Narrative:: CXR: Interval resolution of central vascular congestion - see scanned report in EMR Departure - Departure Time of Disposition: 15:07 Disposition: Home, Self-Care 01 Condition: Fair Clinical Impression: Chest pain with high risk for cardiac etiology Instructions: Angina Pectoris, [id number] Referrals: Jimmy Dominguez MD [Primary Care Provider] - Forms: ED Department Discharge Additional Instructions: 1. Stay well hydrated, you need to drink lots more water, your kidneys are dehydrated 2. Continue same medications from home without any changes 3. See your Primary next week for a follow up with Dr. Fernando Armstrong - Problem List Review Problem List Initiated/Reviewed/Updated: Yes - My Orders Last 24 Hours: My Active Orders 03/27/17 13:13 EKG 12 Lead [EKG Documentation Completion] [RC] STAT Chest 2V [CR] Stat - Assessment/Plan Last 24 Hours: My Active Orders 03/27/17 13:13 EKG 12 Lead [EKG Documentation Completion] [RC] STAT Chest 2V [CR] Stat Plan: Discussed lab results with patient. He does not want to be admitted or transferred, he wants to be discharged home.
[2017-03-27 14:53] LABS: CHLORIDE,CL 100 mmol/L (98-107); SODIUM,NA 139 mmol/L (136-145)
== END 2017-03-27 15:15 | disposition home or self-care (01) ==
LOC: VM.ED 13:12
DX: R07.9 Chest pain, unspecified (principal); I10 Essential (primary) hypertension; I25.2 Old myocardial infarction; E11.9 Type 2 diabetes mellitus without complications; F17.210 Nicotine dependence, cigarettes, uncomplicated; Z95.2 Presence of prosthetic heart valve; Z95.5 Presence of coronary angioplasty implant and graft; Z79.82 Long term (current) use of aspirin; Z79.02 Long term (current) use of antithrombotics/antiplatelets; Z79.01 Long term (current) use of anticoagulants; Z79.84 Long term (current) use of oral hypoglycemic drugs; Z79.899 Other long term (current) drug therapy
CPT/HCPCS: 36415; 71020; 80053; 82550; 82553; 83735; 83880; 84100; 84484; 85025; 85610; 93005; 99285

== ENCOUNTER 2018-01-12 07:23 | Emergency (ER) | payer MEDICAID ==
[2018-01-12] MEDS ORDERED: Sodium Chloride 0.9% 10 ML Syringe FLUSH PRN (07:40)
--- NOTE | 2018-01-12 07:43 | EDM.PDOC ---
ED HPI GENERAL MEDICAL PROBLEM - General Chief Complaint: Chest Pain Stated Complaint: ER Time Seen by Provider: 01/12/18 07:38 Source of Information: Reports: Patient, RN, RN Notes Reviewed History Limitations: Reports: No Limitations - History of Present Illness INITIAL COMMENTS - FREE TEXT/NARRATIVE: Patient presents to the ED at [facility] complaining of chest pain that started around 6am today. He states he is usually SOB, which is chronic. He states his chest pain is substernal. No radiation. Denies any abdominal pain. No N/V/D. No dizziness. No headaches. Onset: Today, Sudden Onset Date: 01/12/18 Onset Time: 06:00 Upper Chest Pain Score (Numeric/FACES): 8 - Related Data Allergies Allergy/AdvReac Type Severity Reaction Status Date / Time No Known Allergies Allergy Verified 01/12/18 07:39 Home Meds: Home Meds Ibuprofen 400 mg PO Q4H PRN 09/01/14 [History] Aspirin [Damián Chewable] 81 mg PO DAILY 02/15/15 [History] Carvedilol [Coreg] 12.5 mg PO BID 02/15/15 [History] Clopidogrel [Plavix] 75 mg PO DAILY 02/15/15 [History] Ferrous Sulfate 325 mg PO DAILY 02/15/15 [History] Furosemide [Lasix] 40 mg PO DAILY 02/15/15 [History] Levothyroxine [Sythroid] 125 mcg PO DAILY 02/15/15 [History] Nitroglycerin [Nitrostat] 0.4 mg SL Q5M 02/15/15 [History] SitaGLIPtin [Januvia] 100 mg PO DAILY 02/15/15 [History] atorvaSTATin [Lipitor] 80 mg PO DAILY 02/15/15 [History] metFORMIN [Glucophage] 1,000 mg PO BIDMEALS 02/15/15 [History] Albuterol Sulfate [Proair Hfa] 8.5 gm IH Q4HR PRN 03/27/17 [History] Cyclobenzaprine [Flexeril] 5 mg PO TID PRN 03/27/17 [History] Isosorbide Mononitrate [Imdur] 30 mg PO DAILY 03/27/17 [History] Losartan [Cozaar] 25 mg PO DAILY 03/27/17 [History] Metoprolol Tartrate [Lopressor] 50 mg PO BID 03/27/17 [History] Pantoprazole Sodium [Protonix] 40 mg PO DAILY 03/27/17 [History] Ticagrelor [Brilinta] 90 mg PO BID 03/27/17 [History] Tiotropium Br/Olodaterol HCl [Stiolto Respimat Inhal [place]] 4 gm IH BID [History] Warfarin [Coumadin] 5 mg PO DAILY 03/27/17 [History] Past Medical History Cardiovascular History: Reports: Heart Valve Replacement, Hypertension, [place], Stents Respiratory History: Reports: Intubation, Previous, Other (See Below) ( Respiratory failure) Other Respiratory History: Respiratory failure Endocrine/Metabolic History: Reports: Diabetes, Type II Hematologic History: Reports: Anemia - Infectious Disease History Infectious Disease History: Reports: Other (See Below) - Past Surgical History Cardiovascular Surgical History: Reports: Coronary Artery Stent Social & Family History - Family History Family Medical History: Noncontributory - Tobacco Use Smoking Status *Q: Current Every Day Smoker Years of Tobacco use: 25 Packs/Tins Daily: 1 Used Tobacco, but Quit: No Second Hand Smoke Exposure: Yes - Caffeine Use Caffeine Use: Reports: Coffee - Alcohol Use Days Per Week of Alcohol Use: 0 - Recreational Drug Use Recreational Drug Use: No Drug Use in Last 12 Months: No - Sexual History Sexual History: Reports: None - Living Situation & Occupation Living situation: Reports: Single, with Family Occupation: Unemployed ED ROS GENERAL - Review of Systems Review Of Systems: See Below Constitutional: Denies: Fever, Chills, Weakness Respiratory: Reports: Shortness of Breath (chronic). Denies: Cough Cardiovascular: Reports: Chest Pain, Palpitations. Denies: Lightheadedness GI/Abdominal: Denies: Abdominal Pain, Nausea, Vomiting Skin: Reports: No Symptoms Neurological: Reports: No Symptoms. Denies: Dizziness, Headache ED EXAM, GENERAL - Physical Exam Exam: See Below Exam Limited By: No Limitations General Appearance: Alert, No Apparent Distress Respiratory/Chest: No Respiratory Distress, Lungs Clear, Normal Breath Sounds Cardiovascular: Normal Peripheral Pulses, Tachycardia, Irregularly Irregular Peripheral Pulses: 2+: Radial (L), Radial (R) GI/Abdominal: Normal Bowel Sounds, Soft, Non-Tender Neurological: Alert, Oriented Skin Exam: Warm, Dry, Intact, Normal Color EKG INTERPRETATION EKG Date: 01/12/18 Time: 07:26 Rhythm: A-Fib Rate (Beats/Min): 156 [place]: Normal P-Wave: Absent QRS: RBBB ST-T: Depressed QT: Normal [place]/PQ Interval: Absent EKG Interpretation Comments: 1. Atrial Fib with RVR EKG #2: after Cardiazem 1. Sinus Rhythm 2. Marked left axis deviation 3. RBBB Course - Vital Signs Last Recorded V/S: Last Vital Signs Temp 35.7 C 01/12/18 07:23 Pulse 67 01/12/18 08:34 Resp 18 01/12/18 08:34 BP 87/57 L 01/12/18 08:34 Pulse Ox 96 01/12/18 08:13 - Orders/Labs/Meds Orders: Active Orders 24 hr Category Date Time Status EKG 12 Lead [EKG Documentation Completion] [RC] STAT Care 01/12/18 07:39 Active Sodium Chloride 0.9% [Saline Flush] Med 01/12/18 07:40 Active 10 ml FLUSH ASDIRECTED PRN Peripheral IV Insertion Adult [OM.PC] Routine Oth 01/12/18 07:40 Ordered Medication Orders Sodium Chloride (Saline Flush) 10 ml FLUSH ASDIRECTED PRN PRN Reason: Keep Vein Open Labs: Laboratory Tests 01/12/18 01/12/18 01/12/18 Range/Units 07:52 07:52 07:52 WBC 14.3 H (4.0-10.0) x10^3/uL RBC 4.33 L (4.5-6.0) x10^6/uL Hgb 11.0 L (14.0-18.0) g/dL Hct 35.2 L (40.0-52.0) % MCV 81.3 D (78.0-93.0) fL MCH 25.4 L (26.0-32.0) pg MCHC 31.3 L (32.0-36.0) g/dL RDW Coeff of Prashant 18.8 H (10.0-15.0) % Plt Count 300 (130-400) x10^3/uL Neut % (Auto) 75.5 (50.0-80.0) % Lymph % (Auto) 14.2 L (25.0-50.0) % [place] % (Auto) 8.4 (2.0-11.0) % Eos % (Auto) 1.4 (0.0-4.0) % Baso % (Auto) 0.5 (0.2-1.2) % PT 17.9 H D (9.8-11.8) SEC INR 1.7 L (2.0-3.5) Sodium 140 (136-145) mmol/L Potassium 3.8 (3.5-5.1) mmol/L Chloride 101 (98-107) mmol/L Carbon Dioxide 25 (21-32) mmol/L BUN 25 H D (7-18) mg/dL Creatinine 1.5 H (0.70-1.30) mg/dL Est Cr Clr Drug Dosing 50.80 mL/min Estimated GFR (MDRD) 49 Glucose 207 H (74-106) mg/dL Calcium 8.6 (8.5-10.1) mg/dL Magnesium 1.3 L (1.8-2.4) mg/dL Creatine Kinase 43 (39-308) U/L POC Troponin I (0.00-0.08) ng/mL 01/12/18 Range/Units 08:02 WBC (4.0-10.0) x10^3/uL RBC (4.5-6.0) x10^6/uL Hgb (14.0-18.0) g/dL Hct (40.0-52.0) % MCV (78.0-93.0) fL MCH (26.0-32.0) pg MCHC (32.0-36.0) g/dL RDW Coeff of Prashant (10.0-15.0) % Plt Count (130-400) x10^3/uL Neut % (Auto) (50.0-80.0) % Lymph % (Auto) (25.0-50.0) % [place] % (Auto) (2.0-11.0) % Eos % (Auto) (0.0-4.0) % Baso % (Auto) (0.2-1.2) % PT (9.8-11.8) SEC INR (2.0-3.5) Sodium (136-145) mmol/L Potassium (3.5-5.1) mmol/L Chloride (98-107) mmol/L Carbon Dioxide (21-32) mmol/L BUN (7-18) mg/dL Creatinine (0.70-1.30) mg/dL Est Cr Clr Drug Dosing mL/min Estimated GFR (MDRD) Glucose (74-106) mg/dL Calcium (8.5-10.1) mg/dL Magnesium (1.8-2.4) mg/dL Creatine Kinase (39-308) U/L POC Troponin I 0.01 (0.00-0.08) ng/mL Meds: Medications Generic Name Dose Route Start Last Admin Trade Name Freq PRN Reason Stop Dose Admin Sodium Chloride 10 ml 01/12/18 07:40 Saline Flush FLUSH ASDIRECTED PRN Keep Vein Open Discontinued Medications Generic Name Dose Route Start Last Admin Trade Name Freq PRN Reason Stop Dose Admin Diltiazem HCl 20 mg 01/12/18 08:01 01/12/18 08:08 Diltiazem IVPUSH 01/12/18 08:02 20 mg ONETIME ONE Administration Sodium Chloride 1,000 mls @ 999 mls/hr 01/12/18 08:01 01/12/18 08:08 Normal Saline IV 01/12/18 09:01 999 mls/hr ONETIME ONE Administration Departure - Departure Time of Disposition: 09:16 Disposition: Home, Self-Care 01 Reason for Transfer *Q: Other Condition: Good Clinical Impression: Uncontrolled atrial fibrillation Instructions: Atrial Fibrillation Referrals: Jimmy Dominguez MD [ED Physician] - Forms: ED Department Discharge Additional Instructions: 1. Stay well hydrated and rest 2. Continue your same medication at home with no changes 3. See Dr. Dominguez this week in clinic, you may need a referral to Cardiology for your fast heart rate 4. Call with any questions/concerns - Problem List Review Problem List Initiated/Reviewed/Updated: Yes - My Orders Last 24 Hours: My Active Orders 01/12/18 07:39 EKG 12 Lead [EKG Documentation Completion] [RC] STAT 01/12/18 07:40 Sodium Chloride 0.9% [Saline Flush] 10 ml FLUSH ASDIRECTED PRN Peripheral IV Insertion Adult [OM.PC] Routine - Assessment/Plan Last 24 Hours: My Active Orders 01/12/18 07:39 EKG 12 Lead [EKG Documentation Completion] [RC] STAT 01/12/18 07:40 Sodium Chloride 0.9% [Saline Flush] 10 ml FLUSH ASDIRECTED PRN Peripheral IV Insertion Adult [OM.PC] Routine Assessment:: Afib with RVR Plan: Patient was given 20 mg Cardiazem and converted to NSR rate 60's. No longer any chest pain after conversion. Patient states he feels well. Case discussed with Dr. Fernando Armstrong, PCP. OK to discharge patient home with a follow up appointment this week or next. Will give Slo-mag prior to discharge.
[2018-01-12] MEDS ORDERED: Sodium Chloride 0.9% 1,000 ML IV ONE (08:01)
[2018-01-12] MEDS ORDERED: Diltiazem 25 MG/5 ML SDV IVPUSH ONE (08:01)
[2018-01-12] MEDS ORDERED: Magnesium Chloride 64 MG Tab.ER PO ONE (09:10)
[2018-01-12 09:26] VITALS: BP 135/58
== END 2018-01-12 09:35 | disposition home or self-care (01) ==
LOC: VM.ED 07:23
DX: I48.91 Unspecified atrial fibrillation (principal); F17.210 Nicotine dependence, cigarettes, uncomplicated; I10 Essential (primary) hypertension; D64.9 Anemia, unspecified; I25.2 Old myocardial infarction; E11.9 Type 2 diabetes mellitus without complications; Z95.5 Presence of coronary angioplasty implant and graft; Z79.82 Long term (current) use of aspirin; Z79.899 Other long term (current) drug therapy; Z79.84 Long term (current) use of oral hypoglycemic drugs; Z79.01 Long term (current) use of anticoagulants
CPT/HCPCS: 36415; 80048; 82550; 83735; 84484; 85025; 85610; 93005; 96361; 96374; 99285; A9270-GY; J3490; J7030

== ENCOUNTER 2018-01-14 04:46 | Emergency (ER) | payer MEDICAID ==
[2018-01-14] MEDS ORDERED: Sodium Chloride 0.9% 10 ML Syringe FLUSH PRN (05:29)
[2018-01-14] MEDS ORDERED: Diltiazem 25 MG/5 ML SDV IVPUSH ONE (05:31)
[2018-01-14] MEDS ORDERED: Diltiazem IR 60 MG Tab PO ONE (05:39)
[2018-01-14 06:38] LABS: CHLORIDE,CL 99 mmol/L (98-107); SODIUM,NA 138 mmol/L (136-145)
[2018-01-14 07:11] VITALS: BP 116/86
--- NOTE | 2018-01-14 07:48 | EDM.PDOC ---
ED HPI GENERAL MEDICAL PROBLEM - General Chief Complaint: Cardiovascular Problem Stated Complaint: afib/chest pain Time Seen by Provider: 01/14/18 05:35 Source of Information: Reports: Patient History Limitations: Reports: No Limitations - History of Present Illness INITIAL COMMENTS - FREE TEXT/NARRATIVE: Pt. presents to ER with complaints of palpitations. He was seen in ER on Thursday and treated for Afib with RVR with IV cardiazem. Pt. has a history of intermittent a-fib and is anticoagulated for this. Pt. states that before Thursday , his last episode of afib with RVR was when he was admitted following a cardiac arrest in 2015. Pt. has a history of COPD and CHF and had a cardiac arrest secondary to hypoxia/ respiratory failure in 2015 and was successfully resuscitated at that time. Pt. was subsequently transferred to [facility]. He has been on home O2 since his discharge, and has been stable from a cardiac standpoint. Pt. states that he has quit smoking but smells highly of cigarette smoke (pt. mother states he is continuing to smoke). He states that he is not experiencing any chest pain or significant dyspnea. Onset: Today Onset Date: 01/14/18 Onset Time: 05:05 Chest Pain Score (Numeric/FACES): 5 - Related Data Allergies Allergy/AdvReac Type Severity Reaction Status Date / Time No Known Allergies Allergy Verified 01/12/18 07:39 Home Meds: Home Meds Ibuprofen 400 mg PO Q4H PRN 09/01/14 [History] Aspirin [Damián Chewable] 81 mg PO DAILY 02/15/15 [History] Carvedilol [Coreg] 12.5 mg PO BID 02/15/15 [History] Clopidogrel [Plavix] 75 mg PO DAILY 02/15/15 [History] Ferrous Sulfate 325 mg PO DAILY 02/15/15 [History] Furosemide [Lasix] 40 mg PO DAILY 02/15/15 [History] Levothyroxine [Sythroid] 125 mcg PO DAILY 02/15/15 [History] Nitroglycerin [Nitrostat] 0.4 mg SL Q5M 02/15/15 [History] SitaGLIPtin [Januvia] 100 mg PO DAILY 02/15/15 [History] atorvaSTATin [Lipitor] 80 mg PO DAILY 02/15/15 [History] metFORMIN [Glucophage] 500 - 1,000 mg PO BIDMEALS 02/15/15 [History] Albuterol Sulfate [Proair Hfa] 8.5 gm IH Q4HR PRN 03/27/17 [History] Cyclobenzaprine [Flexeril] 5 mg PO TID PRN 03/27/17 [History] Isosorbide Mononitrate [Imdur] 30 mg PO DAILY 03/27/17 [History] Losartan [Cozaar] 25 mg PO DAILY 03/27/17 [History] Pantoprazole Sodium [Protonix] 40 mg PO DAILY 03/27/17 [History] Ticagrelor [Brilinta] 90 mg PO BID 03/27/17 [History] Tiotropium Br/Olodaterol HCl [Stiolto Respimat Inhal [place]] 4 gm IH BID [History] Warfarin [Coumadin] 5 mg PO DAILY 03/27/17 [History] Metoprolol Succinate 50 mg PO DAILY 01/14/18 [History] Past Medical History Cardiovascular History: Reports: Heart Valve Replacement, Hypertension, [place], Stents Respiratory History: Reports: Intubation, Previous, Other (See Below) Other Respiratory History: Respiratory failure Endocrine/Metabolic History: Reports: Diabetes, Type II Hematologic History: Reports: Anemia - Infectious Disease History Infectious Disease History: Reports: Other (See Below) - Past Surgical History Cardiovascular Surgical History: Reports: Coronary Artery Stent Social & Family History - Family History Family Medical History: Noncontributory - Tobacco Use Smoking Status *Q: Former Smoker Years of Tobacco use: 25 Packs/Tins Daily: 2 Used Tobacco, but Quit: Yes Month/Year Tobacco Last Used: 24 Second Hand Smoke Exposure: Yes - Caffeine Use Caffeine Use: Reports: Coffee - Alcohol Use Days Per Week of Alcohol Use: 0 - Recreational Drug Use Recreational Drug Use: No Drug Use in Last 12 Months: No - Sexual History Sexual History: Reports: None - Living Situation & Occupation Living situation: Reports: Single, with Family Occupation: Unemployed ED ROS GENERAL - Review of Systems Review Of Systems: See Below Constitutional: Reports: No Symptoms HEENT: Reports: No Symptoms Respiratory: Reports: No Symptoms Cardiovascular: Reports: Palpitations. Denies: Dyspnea on Exertion, Edema, Lightheadedness, Syncope Endocrine: Reports: No Symptoms GI/Abdominal: Reports: No Symptoms : Reports: No Symptoms Musculoskeletal: Reports: No Symptoms Skin: Reports: No Symptoms Neurological: Reports: No Symptoms Psychiatric: Reports: No Symptoms Hematologic/Lymphatic: Reports: No Symptoms Immunologic: Reports: No Symptoms ED EXAM, GENERAL - Physical Exam Exam: See Below Exam Limited By: No Limitations General Appearance: Alert, WD/WN, No Apparent Distress Eye Exam: Bilateral Eye: EOMI, Normal Fundi, Normal Inspection, PERRL Nose: Normal Inspection, Normal Mucosa, No Blood Throat/Mouth: Normal Inspection, Normal Lips, Normal Teeth, Normal Gums, Normal Oropharynx, Normal Voice, No Airway Compromise Head: Atraumatic, Normocephalic Neck: Normal Inspection, Supple, Non-Tender, Full Range of Motion Respiratory/Chest: No Respiratory Distress, Lungs Clear, Normal Breath Sounds, No Accessory Muscle Use, Chest Non-Tender Cardiovascular: Normal Peripheral Pulses, Regular Rate, Rhythm, No Edema, No Gallop, No JVD, No Murmur, No Rub Peripheral Pulses: 3+: Radial (L), Radial (R) GI/Abdominal: Normal Bowel Sounds, Soft, Non-Tender, No Distention, No Abnormal Bruit, No Mass, Pelvis Stable (Male) Exam: Deferred Rectal (Males) Exam: Deferred Back Exam: Normal Inspection, Full Range of Motion, NT Extremities: Normal Inspection, Normal Range of Motion, Non-Tender, Normal Capillary Refill, No Pedal Edema Neurological: Alert, Oriented, CN II-XII Intact, Normal Cognition, Normal Gait, Normal Reflexes, No Motor/Sensory Deficits Psychiatric: Normal Affect, Normal Mood Skin Exam: Warm, Dry, Intact, Normal Color, No Rash Lymphatic: No Adenopathy EKG INTERPRETATION Rhythm: NSR [place]: Normal P-Wave: Present QRS: Normal ST-T: Normal QT: Normal EKG Interpretation Comments: initially in a-fib at 150-160, converted to sinus without any intervention Course - Vital Signs Last Recorded V/S: Last Vital Signs Temp 35 C L 01/14/18 05:35 Pulse 83 01/14/18 07:10 Resp 18 01/14/18 07:10 BP 116/86 01/14/18 07:10 Pulse Ox 96 01/14/18 07:10 - Orders/Labs/Meds Orders: Active Orders 24 hr Category Date Time Status EKG Documentation Completion [RC] STAT Care 01/14/18 05:28 Active EKG Documentation Completion [RC] STAT Care 01/14/18 05:29 Inactive Chest 1V Frontal [CR] Stat Exams 01/14/18 05:28 Stop Req Chest 2V [CR] Stat Exams 01/14/18 06:04 Taken Sodium Chloride 0.9% [Saline Flush] Med 01/14/18 05:29 Active 10 ml FLUSH ASDIRECTED PRN Peripheral IV Insertion Adult [OM.PC] Routine Oth 01/14/18 05:29 Ordered Medication Orders Sodium Chloride (Saline Flush) 10 ml FLUSH ASDIRECTED PRN PRN Reason: Keep Vein Open Labs: Laboratory Tests 01/14/18 01/14/18 01/14/18 Range/Units 05:40 05:40 05:40 WBC 10.8 H (4.0-10.0) x10^3/uL RBC 5.10 (4.5-6.0) x10^6/uL Hgb 12.9 L D (14.0-18.0) g/dL Hct 40.8 (40.0-52.0) % MCV 80.0 (78.0-93.0) fL MCH 25.3 L (26.0-32.0) pg MCHC 31.6 L (32.0-36.0) g/dL RDW Coeff of Prashant 19.5 H (10.0-15.0) % Plt Count 332 (130-400) x10^3/uL Neut % (Auto) 73.8 (50.0-80.0) % Lymph % (Auto) 17.4 L (25.0-50.0) % [place] % (Auto) 6.9 (2.0-11.0) % Eos % (Auto) 1.3 (0.0-4.0) % Baso % (Auto) 0.6 (0.2-1.2) % PT 19.4 H (9.8-11.8) SEC INR 1.8 L (2.0-3.5) Sodium 138 (136-145) mmol/L Potassium 3.8 (3.5-5.1) mmol/L Chloride 99 (98-107) mmol/L Carbon Dioxide 28 (21-32) mmol/L Anion Gap 14.8 BUN 27 H (7-18) mg/dL Creatinine 1.5 H (0.70-1.30) mg/dL Est Cr Clr Drug Dosing TNP Estimated GFR (MDRD) 49 Glucose 226 H (74-106) mg/dL Calcium 9.4 (8.5-10.1) mg/dL Corrected Calcium 9.88 (8.5-10.1) mg/dL Phosphorus 4.1 (2.6-4.7) mg/dL Magnesium 1.5 L (1.8-2.4) mg/dL Total Bilirubin 0.4 (0.2-1.0) mg/dL AST 25 (15-37) U/L ALT 43 (16-63) U/L Alkaline Phosphatase 114 (46-116) U/L Troponin I 0.042 (<=0.056) ng/mL C-Reactive Protein 1.5 H (<=0.9) mg/dL Total Protein 9.7 H (6.4-8.2) g/dL Albumin 3.4 (3.4-5.0) g/dL Globulin 6.3 Albumin/Globulin Ratio 0.54 Meds: Medications Generic Name Dose Route Start Last Admin Trade Name Freq PRN Reason Stop Dose Admin Sodium Chloride 10 ml 01/14/18 05:29 Saline Flush FLUSH ASDIRECTED PRN Keep Vein Open Discontinued Medications Generic Name Dose Route Start Last Admin Trade Name Freq PRN Reason Stop Dose Admin Diltiazem HCl 20 mg 01/14/18 05:31 Diltiazem IVPUSH 01/14/18 05:32 ONETIME ONE Diltiazem HCl 60 mg 01/14/18 05:39 01/14/18 05:47 Cardizem PO 01/14/18 05:40 60 mg ONETIME ONE Administration Departure - Departure Time of Disposition: 07:35 Disposition: Home, Self-Care 01 Condition: Good Clinical Impression: Paroxysmal atrial fibrillation with RVR Instructions: Atrial Fibrillation, [id number] Referrals: PCP,Unobtain [Primary Care Provider] - Forms: ED Department Discharge Additional Instructions: Increase Toprol XL to 100mg (2 pills) once daily. Follow-up with Fernando Armstrong as directed. No cardiac rehab tomorrow. Return to ER if you develop rapid heart that stays elevated for over 1 hour. - My Orders Last 24 Hours: My Active Orders 01/14/18 05:28 EKG Documentation Completion [RC] STAT Chest 1V Frontal [CR] Stat 04/05/18 05:29 EKG Documentation Completion [RC] STAT Sodium Chloride 0.9% [Saline Flush] 10 ml FLUSH ASDIRECTED PRN Peripheral IV Insertion Adult [OM.PC] Routine 01/14/18 06:04 Chest 2V [CR] Stat - Assessment/Plan Last 24 Hours: My Active Orders 01/14/18 05:28 EKG Documentation Completion [RC] STAT Chest 1V Frontal [CR] Stat 01/14/18 05:29 EKG Documentation Completion [RC] STAT Sodium Chloride 0.9% [Saline Flush] 10 ml FLUSH ASDIRECTED PRN Peripheral IV Insertion Adult [OM.PC] Routine 01/14/18 06:04 Chest 2V [CR] Stat Assessment:: afib with RVR, resolved Plan: I contacted Dr. Pace, bulb assembler at [facility] in [place], regarding management of this pt. She advised increasing the dose of toprol XL to 100mg once daily. Pt. was given cardiazem (immediate release) 60mg PO in the ER as well. Pt. advised to return to ER if he develops recurrence of his tachycardia. I advised him to cancel his cardiac rehab tomorrow. Follow-up with Fernando Dominguez as previously directed.
== END 2018-01-14 07:35 | disposition home or self-care (01) ==
LOC: VM.ED 04:46
DX: I48.0 Paroxysmal atrial fibrillation (principal); E11.9 Type 2 diabetes mellitus without complications; I10 Essential (primary) hypertension; I25.2 Old myocardial infarction; Z79.899 Other long term (current) drug therapy; Z79.01 Long term (current) use of anticoagulants; Z87.891 Personal history of nicotine dependence
CPT/HCPCS: 36415; 71046; 80053; 83735; 84100; 84484; 85025; 85610; 86140; 93005; 99285; A9270

== ENCOUNTER 2019-01-31 14:47 | Inpatient (IN) | payer MEDICAID ==
[2019-01-31] MEDS ORDERED: Sodium Chloride 0.9% 10 ML Syringe FLUSH PRN (14:54)
[2019-01-31] MEDS ORDERED: Nitroglycerin 0.4 MG Tab.SL SL PRN (16:30)
[2019-01-31] MEDS ORDERED: Cyclobenzaprine 10 MG Tab PO PRN (16:45)
[2019-01-31] MEDS: Azithromycin 250 MG Tab PO SCH (17:54)
[2019-01-31] MEDS: Lactated Ringers 1,000 ML IV SCH (17:55)
[2019-01-31] MEDS ORDERED: Albuterol 0.083% 2.5 MG/3 ML Neb Soln INH PRN (20:00)
[2019-01-31] MEDS: Heparin Sodium 5,000 Units/ML Vial SUBCUT SCH (23:19)
--- NOTE | 2019-01-31 23:55 | HP ---
CHIEF COMPLAINT: Diarrhea for 6 days. HISTORY OF PRESENT ILLNESS: This is a 53-year-old male, who came into the clinic today feeling weak. He maybe ate some bad chicken a week ago. No vomiting or no stomach pain, but he has had up to 6 watery brown stools yesterday when it was just 3 in the previous days. So, the diarrhea is not getting better. He is chronically on oxygen for his COPD and history of cardiac problems with stents back in 2017. He does have a normal EF in the past. He also takes metformin for diabetes. There have been no recent medication changes. He has not had any fever or chills. He has not recently been on any antibiotics. He does not feel short of breath, but he has had decreased urine output. He has never had previous problems with colitis or colon problems. He was supposed to have a colonoscopy in the last year, but it was not done. ALLERGIES: His allergy list includes Jardiance, dry mouth and pretty shaky. MEDICATIONS: His medication list is reviewed. 1. Plavix 75 mg daily. 2. Protonix 40 mg daily. 3. Januvia 100 mg daily. 4. Warfarin dosing is 5 mg daily, but 2.5 on Fridays. 5. He is also on Flexeril 5 mg three times a day as needed for muscle spasm. 6. Lipitor 80 mg daily. 7. Lasix 40 mg daily, but may take two tablets if needed for weight gain. 8. Metformin 1000 mg b.i.d. 9. Anoro inhaler daily. 10.Levothyroxine 125 daily. 11.Losartan 25 mg daily. 12.Nitroglycerin as needed. 13.Imdur 30 mg daily. 14.Toprol 100 mg daily. 15.ProAir inhaler as needed. 16.Aspirin 81 mg daily. 17.Iron 325 daily. PAST MEDICAL HISTORY: His past medical history is quite complex. He does have 1. History of reported acute on chronic systolic heart failure with EF of 65% in 2016. 2. History of iron deficiency anemia. 3. Bilateral carotid artery stenosis. 4. Atrial fibrillation, on Coumadin. 5. Coronary artery disease with stenting back in 2017. 6. Previous cardiac arrest. 7. Chronic obstructive pulmonary disease with chronic hypoxia, on oxygen 2 L. 8. Diabetes, type 2. 9. History of aortic valve replacement. 10.Hypothyroidism. 11.Previous MIs. 12.Smoker, recently quit. SURGICAL HISTORY: 1. Tracheostomy. 2. Insertion of PEG tube. 3. Cardiac surgery with septal repair at around age 7. SOCIAL HISTORY: The patient is a rare alcohol drinker. He quit smoking recently. He is unemployed currently. FAMILY HISTORY: His mother is alive. Father of a stroke at age 70. He also had an [place]. REVIEW OF SYSTEMS: General: Again, no fever. No chills. His weight has not changed significantly recently. HEENT: No sore throat. Cardiac: No chest pain. No palpitations. Respiratory: No cough. No shortness of breath. Abdomen: No nausea or vomiting or constipation, but he has had diarrhea. No blood in his stools. Otherwise, all systems are reviewed and found to be negative unless otherwise stated. LABORATORY DATA: On his laboratory work today, he had a glucose of 161, BUN of 46, creatinine of 3.11 with previous creatinine of 1.6 on 01/18/2019. Sodium was 135, potassium was 4.3, chloride was 103, bicarbonate was 13, GFR was 21, and his anion gap was 19. Otherwise, his ESR is 32. INR was 7. Lactic of 2. CRP is 7.4. TSH was 2.8. PHYSICAL EXAMINATION: Vital Signs: At the hospital, his weight is 102.5 kg, temperature is 97.4, pulse is 81 and it was over 100 in the clinic, blood pressure is 140/82 and was actually around 100 in the clinic, and O2 is 98% on 2 L. General: He is in no acute distress. Heart: Regular rate and rhythm. S1 and S2 without murmur. Respiratory: Lungs sounds are clear to auscultation bilaterally without crackles or wheezes. Abdomen: Mildly distended. He states that is normal for him. He has positive normoactive bowel sounds without tenderness to palpation. Extremities: Warm and dry. No edema. Psychiatric: Mental status, alert and orientated x3. ASSESSMENT AND PLAN: 1. Diarrhea, presumably due to a food poisoning type illness. It is unusual that it has extended this far. I did consult briefly with Infectious Disease. Given his comorbidities, we will treat him for traveler's diarrhea, even though he has not traveled anywhere. I will do the Zithromax 500 daily for three days to avoid nausea from the larger dose. He has also had QTc's of around 450 in the past. 2. Acute renal failure due to dehydration from diarrhea. He is already having some poor urine output. We will do a bladder scan. We will get him started on some IV fluids. 3. Supratherapeutic INR. Probably due to poor oral intake and his acute illness. We will hold his Coumadin and repeat an INR tomorrow. 4. Recent renal insufficiency on 01/18/2019. He did not have a history of chronic kidney disease, and in fact, his creatinine was 1.15 a year ago. 5. History of coronary artery disease. 6. History of heart failure, seems to be stable. We will hold his Lasix due to his acute renal failure. 7. Essential hypertension. We will hold his ARB due to renal failure. 8. Atrial fibrillation, currently in a sinus rhythm, rate controlled. We will place him on cardiac monitoring and hold his Coumadin. We will continue his beta-hemal. 9. Chronic hypoxia and chronic obstructive pulmonary disease. We will continue his home oxygen. 10.Hypothyroidism. He is euthyroid. 11.Diabetes. We will do q.i.d. Accu-Cheks and hold his metformin. If hyperglycemic, we will start him on insulin. We will continue Januvia. 12.For deep venous thrombosis prophylaxis, he is not acutely bleeding. He is in some renal insufficiency, so I will do heparin b.i.d. He is a code level 1. Dr. Jimmy Dominguez will see on rounds tomorrow. The patient is very hopeful to be discharged home in the next 24 hours. We will just see how he does. DANIEL: 01/31/2019 17:06:02 MODL: 01/31/2019 23:45:51 /[id number]
[2019-02-01] MEDS: Lactated Ringers 1,000 ML IV SCH ×3 (00:36→13:19)
[2019-02-01] MEDS ORDERED: Albuterol/Ipratropium 3.0-0.5 MG/3 ML Neb Soln INH SCH (06:00)
[2019-02-01] MEDS: Pantoprazole 40 MG Tab.CR PO SCH (06:33)
[2019-02-01] MEDS: Levothyroxine 125 MCG Tab PO SCH (06:33)
[2019-02-01] MEDS: atorvaSTATin 40 MG Tab PO SCH (07:42)
[2019-02-01] MEDS: Heparin Sodium 5,000 Units/ML Vial SUBCUT SCH (07:42)
[2019-02-01] MEDS: Metoprolol Succinate 50 MG Tab.ER PO SCH (07:42)
[2019-02-01] MEDS: Azithromycin 250 MG Tab PO SCH (07:42)
[2019-02-01] MEDS: Isosorbide Mononitrate 30 MG Tab.ER PO SCH (07:43)
[2019-02-01 08:13] LABS: ANION GAP 17.6 mmol/L (10-20)
[2019-02-01] MEDS ORDERED: Magnesium Sulfate/Water 4 GM in Premix Bag 1 BAG IV ONE (08:16)
[2019-02-01] MEDS: Albuterol/Ipratropium 3.0-0.5 MG/3 ML Neb Soln INH SCH ×2 (12:40→23:47)
[2019-02-01 14:45] LABS: ANION GAP 15.4 mmol/L (10-20)
[2019-02-01] MEDS: NS + KCl 20mEq/L 1,000 ML IV SCH ×2 (16:25→23:13)
[2019-02-02] MEDS: Albuterol/Ipratropium 3.0-0.5 MG/3 ML Neb Soln INH SCH ×2 (03:04→06:00)
[2019-02-02] MEDS: Pantoprazole 40 MG Tab.CR PO SCH (06:00)
[2019-02-02] MEDS: Levothyroxine 125 MCG Tab PO SCH (06:00)
[2019-02-02] MEDS: NS + KCl 20mEq/L 1,000 ML IV SCH (06:08)
[2019-02-02 07:17] LABS: ANION GAP 15.5 mmol/L (10-20)
[2019-02-02] MEDS: Isosorbide Mononitrate 30 MG Tab.ER PO SCH (07:26)
[2019-02-02] MEDS: Metoprolol Succinate 50 MG Tab.ER PO SCH (07:26)
[2019-02-02] MEDS: atorvaSTATin 40 MG Tab PO SCH (07:26)
[2019-02-02] MEDS: Azithromycin 250 MG Tab PO SCH (07:26)
--- NOTE | 2019-02-02 09:12 | PCM.PN ---
- General Info Date of Service: 02/01/19 Admission Dx/Problem (Free Text): S: Admitted for diarrhea. Still waking up a night, liquid, no maryann fever or vomiting. Going on for 5d prior. ROGELIO by labs, K and Mg low, INR is high. On TOAT for CAD/Afib hx but hasn't had valve replacement etc. Maybe ate bad chicken prior O: One low BP otherwise afebrile and VSS. A&O NAD, Abd soft, ext warm, no edema. A/P: Diarrhea, presumed infectious, etiology unclear, salmonella possible given chicken exposure. Stool cultures and C. diff pending. On empiric azithromycin. Continue IV fluids to replace K and magnesium. Recheck levels in a.m. Supratherapeutic INR, Coumadin held, holding aspirin and Plavix and short-term and then will resume. No sign of any active bleeding or indication to reverse currently as long as it lower than nine. - Patient Data Vitals - Most Recent: Last Vital Signs Temp 36.4 C 02/02/19 05:54 Pulse 62 02/02/19 07:26 Resp 20 02/02/19 05:54 BP 132/70 02/02/19 07:26 Pulse Ox 98 02/02/19 05:54 Weight - Most Recent: 107.501 kg I&O - Last 24 Hours: Intake & Output 02/01/19 02/02/19 02/02/19 22:59 06:59 14:59 Intake Total 2289 1958 340 Output Total 300 Balance 2289 1658 340 Lab Results Last 24 Hours: Laboratory Results - last 24 hr 02/01/19 02/01/19 02/01/19 Range/Units 11:29 14:12 14:12 WBC (4.0-10.0) x10^3/uL RBC (4.5-6.0) x10^6/uL Hgb (14.0-18.0) g/dL Hct (40.0-52.0) % MCV (78.0-93.0) fL MCH (26.0-32.0) pg MCHC (32.0-36.0) g/dL RDW Coeff of Prashant (10.0-15.0) % Plt Count (130-400) x10^3/uL Neut % (Auto) (50.0-80.0) % Lymph % (Auto) (25.0-50.0) % Calloway % (Auto) (2.0-11.0) % Eos % (Auto) (0.0-4.0) % Baso % (Auto) (0.2-1.2) % PT 98.7 H (10.0-12.8) SEC INR 8.9 H* (2.0-3.5) Sodium 140 (136-145) mmol/L Potassium 3.4 L (3.5-5.1) mmol/L Chloride 104 (98-107) mmol/L Carbon Dioxide 24 (21-32) mmol/L Anion Gap 15.4 (10-20) mmol/L BUN 47 H (7-18) mg/dL Creatinine 2.2 H (0.70-1.30) mg/dL Est Cr Clr Drug Dosing 35.72 mL/min Estimated GFR (MDRD) 31 Glucose 155 H (74-106) mg/dL POC Glucose 185 H (74-106) mg/dL Calcium 7.8 L (8.5-10.1) mg/dL Corrected Calcium (8.5-10.1) mg/dL Magnesium 2.5 H (1.8-2.4) mg/dL Total Bilirubin (0.2-1.0) mg/dL AST (15-37) U/L ALT (16-63) U/L Alkaline Phosphatase (46-116) U/L Total Protein (6.4-8.2) g/dL Albumin (3.4-5.0) g/dL Globulin Albumin/Globulin Ratio 02/01/19 02/02/19 02/02/19 Range/Units 17:36 06:21 06:21 WBC 9.2 (4.0-10.0) x10^3/uL RBC 4.19 L (4.5-6.0) x10^6/uL Hgb 11.5 L (14.0-18.0) g/dL Hct 35.6 L (40.0-52.0) % MCV 85.0 (78.0-93.0) fL MCH 27.4 (26.0-32.0) pg MCHC 32.3 (32.0-36.0) g/dL RDW Coeff of Prashant 17.0 H (10.0-15.0) % Plt Count 192 (130-400) x10^3/uL Neut % (Auto) 64.4 (50.0-80.0) % Lymph % (Auto) 11.0 L (25.0-50.0) % Calloway % (Auto) 6.7 (2.0-11.0) % Eos % (Auto) 17.8 H (0.0-4.0) % Baso % (Auto) 0.1 L (0.2-1.2) % PT 85.9 H (10.0-12.8) SEC INR 7.7 H* (2.0-3.5) Sodium (136-145) mmol/L Potassium (3.5-5.1) mmol/L Chloride (98-107) mmol/L Carbon Dioxide (21-32) mmol/L Anion Gap (10-20) mmol/L BUN (7-18) mg/dL Creatinine (0.70-1.30) mg/dL Est Cr Clr Drug Dosing mL/min Estimated GFR (MDRD) Glucose (74-106) mg/dL POC Glucose 99 (74-106) mg/dL Calcium (8.5-10.1) mg/dL Corrected Calcium (8.5-10.1) mg/dL Magnesium (1.8-2.4) mg/dL Total Bilirubin (0.2-1.0) mg/dL AST (15-37) U/L ALT (16-63) U/L Alkaline Phosphatase (46-116) U/L Total Protein (6.4-8.2) g/dL Albumin (3.4-5.0) g/dL Globulin Albumin/Globulin Ratio 02/02/19 Range/Units 06:21 WBC (4.0-10.0) x10^3/uL RBC (4.5-6.0) x10^6/uL Hgb (14.0-18.0) g/dL Hct (40.0-52.0) % MCV (78.0-93.0) fL MCH (26.0-32.0) pg MCHC (32.0-36.0) g/dL RDW Coeff of Prashant (10.0-15.0) % Plt Count (130-400) x10^3/uL Neut % (Auto) (50.0-80.0) % Lymph % (Auto) (25.0-50.0) % C[place]ay % (Auto) (2.0-11.0) % Eos % (Auto) (0.0-4.0) % Baso % (Auto) (0.2-1.2) % PT (10.0-12.8) SEC INR (2.0-3.5) Sodium 144 (136-145) mmol/L Potassium 4.5 (3.5-5.1) mmol/L Chloride 112 H (98-107) mmol/L Carbon Dioxide 21 (21-32) mmol/L Anion Gap 15.5 (10-20) mmol/L BUN 32 H (7-18) mg/dL Creatinine 1.5 H (0.70-1.30) mg/dL Est Cr Clr Drug Dosing 52.39 mL/min Estimated GFR (MDRD) 49 Glucose 119 H (74-106) mg/dL POC Glucose (74-106) mg/dL Calcium 7.5 L (8.5-10.1) mg/dL Corrected Calcium 8.70 (8.5-10.1) mg/dL Magnesium 1.9 (1.8-2.4) mg/dL Total Bilirubin 0.3 (0.2-1.0) mg/dL AST 199 H (15-37) U/L ALT 160 H (16-63) U/L Alkaline Phosphatase 147 H (46-116) U/L Total Protein 6.3 L (6.4-8.2) g/dL Albumin 2.5 L (3.4-5.0) g/dL Globulin 3.8 Albumin/Globulin Ratio 0.66 Med Orders - Current: Current Medications Albuterol (Proventil Neb Soln) 2.5 mg INH Q4H PRN PRN Reason: Shortness of Breath Albuterol/Ipratropium (Duoneb 3.0-0.5 Mg/3 Ml) 3 ml INH Q6HRRT [facility] Last Admin: 02/02/19 06:00 Dose: 3 ml Atorvastatin Calcium (Lipitor) 80 mg PO DAILY [facility] Last Admin: 02/02/19 07:26 Dose: 80 mg Azithromycin (Zithromax) 500 mg PO DAILY [facility] Stop: 02/02/19 23:00 Last Admin: 02/02/19 07:26 Dose: 500 mg Cyclobenzaprine HCl (Flexeril) 5 mg PO TID PRN PRN Reason: Muscle Spasm Potassium Chloride/Sodium Chloride (Normal Saline With 20 Meq Kcl) 1,000 mls @ 150 mls/hr IV ASDIRECTED [facility] Last Admin: 02/02/19 06:08 Dose: 150 mls/hr Isosorbide Mononitrate (Imdur) 30 mg PO DAILY [facility] Last Admin: 02/02/19 07:26 Dose: 30 mg Levothyroxine Sodium (Levothyroxine) 125 mcg PO ACBREAKFAST [facility] Last Admin: 02/02/19 06:00 Dose: 125 mcg Metoprolol Succinate (Toprol Xl) 100 mg PO DAILY [facility] Last Admin: 02/02/19 07:26 Dose: 100 mg Nitroglycerin (Nitrostat) 0.4 mg SL Q5M PRN PRN Reason: Chest Pain Pantoprazole Sodium (Protonix) 40 mg PO ACBREAKFAST [facility] Last Admin: 02/02/19 06:00 Dose: 40 mg Sitagliptin Phosphate (Januvia) 100 mg PO DAILY [facility] Last Admin: 02/02/19 07:26 Dose: 100 mg Sodium Chloride (Saline Flush) 10 ml FLUSH ASDIRECTED PRN PRN Reason: Keep Vein Open Discontinued Medications Albuterol/Ipratropium (Duoneb 3.0-0.5 Mg/3 Ml) 3 ml INH Q6HR [facility] Last Admin: 02/01/19 07:04 Dose: 3 ml Heparin Sodium (Porcine) (Heparin Sodium) 5,000 units SUBCUT Q12H [facility] Last Admin: 02/01/19 07:42 Dose: 5,000 units Lactated Ringer's (Ringers, Lactated) 1,000 mls @ 150 mls/hr IV ASDIRECTED [facility] Last Admin: 02/01/19 13:19 Dose: 150 mls/hr Magnesium Sulfate 4 gm/ Premix 100 mls @ 25 mls/hr IV ONETIME ONE Stop: 02/01/19 12:15 Last Admin: 02/01/19 08:39 Dose: 25 mls/hr - Problem List Review Problem List Initiated/Reviewed/Updated: Yes - My Orders Last 24 Hours: My Active Orders 02/01/19 16:15 NS + KCl 20mEq/L [Normal Saline with 20 mEq KCl] 1,000 ml IV ASDIRECTED
--- NOTE | 2019-02-02 09:31 | PCM.DCSUM1 ---
Discharge Summary - Hospital Course Free Text/Narrative:: Patient was admitted from clinic for five day history of diarrhea. No maryann bleeding fever or vomiting. No recent travel raw foods or antibiotics. Stool cultures and C. diff are send out labs, still pending. Possible exposure to some old chicken, he was started on empiric azithromycin for possible salmonella. He had significant acute renal failure secondary to his dehydration improving pretty briskly on IV fluids. Tolerating full diet here. Stools are still runny but have slowed, only one so far today, he's adamantly requesting discharge home. INR was up to 9 andstill 7.5 today. He is on triple oral antithrombotic therapy for history of severe coronary disease and atrial fibrillation. He has not had any valve replacement. Potassium and magnesium replaced and okay today. He has developed a transaminitis and eosinophilia without any other signs of a systemic syndrome or parasitosis. Possible this could be drug reaction to azithromycin we will stop this. He will return to clinic in two days to recheck electrolytes chemistry LFTs eosinophils and INR. He will hold Coumadin until then. Watch for bleeding fever or vomiting at home etc. Diagnosis: Stroke: No - Discharge Data Discharge Date: 02/02/19 Discharge Disposition: Home, Self-Care 01 Condition: Good - Patient Summary/Data Labs Pending at D/C: Stool cultures - Patient Instructions Diet: Usual Diet as Tolerated - Discharge Plan *PRESCRIPTION DRUG MONITORING PROGRAM REVIEWED*: Not Applicable *COPY OF PRESCRIPTION DRUG MONITORING REPORT IN PATIENT MILENA: Not Applicable Home Medications: Home Meds Aspirin [Damián Chewable Aspirin] 81 mg PO DAILY 02/15/15 [History] Clopidogrel [Plavix] 75 mg PO DAILY 02/15/15 [History] Ferrous Sulfate 325 mg PO DAILY 02/15/15 [History] Nitroglycerin [Nitrostat] 0.4 mg SL Q5M PRN 02/15/15 [History] atorvaSTATin [Lipitor] 80 mg PO DAILY 02/15/15 [History] metFORMIN [Glucophage] 1,000 mg PO BIDMEALS 02/15/15 [History] Albuterol Sulfate [Proair Hfa] 1 - 2 inh IH Q4HR PRN 03/27/17 [History] Cyclobenzaprine [Flexeril] 5 mg PO TID PRN 03/27/17 [History] Isosorbide Mononitrate [Imdur] 30 mg PO DAILY 03/27/17 [History] Losartan [Cozaar] 25 mg PO DAILY 03/27/17 [History] Pantoprazole Sodium [Protonix] 40 mg PO DAILY 03/27/17 [History] Furosemide 40 mg PO DAILY 01/31/19 [History] Furosemide 40 mg PO DAILY PRN 01/31/19 [History] Metoprolol Succinate [Toprol XL 100mg] 100 mg PO DAILY 01/31/19 [History] SitaGLIPtin [Januvia] 100 mg PO DAILY 01/31/19 [History] Umeclidinium Brm/Vilanterol Tr [Anoro Ellipta 62.5-25 MCG] 1 each IH DAILY 01/31 [History] Levothyroxine 125 mcg PO ACBREAKFAST tablet 02/02/19 [Rx] Levothyroxine Sodium [Synthroid] 125 mcg PO DAILY 02/02/19 [History] Referrals: Jimmy Dominguez MD [Primary Care Provider] - 02/04/19 11:00 am (You have a follow up with Dr. Mansoor Dominguez on February 04, 2019 at 11:00 with Labs first ---- - [facility]) - Discharge Summary/Plan Comment DC Time >30 min.: No - Patient Data Vitals - Most Recent: Last Vital Signs Temp 36.4 C 02/02/19 05:54 Pulse 62 02/02/19 07:26 Resp 20 02/02/19 05:54 BP 132/70 02/02/19 07:26 Pulse Ox 98 02/02/19 05:54 Weight - Most Recent: 107.501 kg I&O - Last 24 hours: Intake & Output 02/01/19 02/02/19 02/02/19 22:59 06:59 14:59 Intake Total 2289 1958 340 Output Total 300 Balance 2289 1658 340 Lab Results - Last 24 hrs: Laboratory Results - last 24 hr 02/01/19 02/01/19 02/01/19 Range/Units 11:29 14:12 14:12 WBC (4.0-10.0) x10^3/uL RBC (4.5-6.0) x10^6/uL Hgb (14.0-18.0) g/dL Hct (40.0-52.0) % MCV (78.0-93.0) fL MCH (26.0-32.0) pg MCHC (32.0-36.0) g/dL RDW Coeff of Prashant (10.0-15.0) % Plt Count (130-400) x10^3/uL Neut % (Auto) (50.0-80.0) % Lymph % (Auto) (25.0-50.0) % [place] % (Auto) (2.0-11.0) % Eos % (Auto) (0.0-4.0) % Baso % (Auto) (0.2-1.2) % PT 98.7 H (10.0-12.8) SEC INR 8.9 H* (2.0-3.5) Sodium 140 (136-145) mmol/L Potassium 3.4 L (3.5-5.1) mmol/L Chloride 104 (98-107) mmol/L Carbon Dioxide 24 (21-32) mmol/L Anion Gap 15.4 (10-20) mmol/L BUN 47 H (7-18) mg/dL Creatinine 2.2 H (0.70-1.30) mg/dL Est Cr Clr Drug Dosing 35.72 mL/min Estimated GFR (MDRD) 31 Glucose 155 H (74-106) mg/dL POC Glucose 185 H (74-106) mg/dL Calcium 7.8 L (8.5-10.1) mg/dL Corrected Calcium (8.5-10.1) mg/dL Magnesium 2.5 H (1.8-2.4) mg/dL Total Bilirubin (0.2-1.0) mg/dL AST (15-37) U/L ALT (16-63) U/L Alkaline Phosphatase (46-116) U/L Total Protein (6.4-8.2) g/dL Albumin (3.4-5.0) g/dL Globulin Albumin/Globulin Ratio 02/01/19 02/02/19 02/02/19 Range/Units 17:36 06:21 06:21 WBC 9.2 (4.0-10.0) x10^3/uL RBC 4.19 L (4.5-6.0) x10^6/uL Hgb 11.5 L (14.0-18.0) g/dL Hct 35.6 L (40.0-52.0) % MCV 85.0 (78.0-93.0) fL MCH 27.4 (26.0-32.0) pg MCHC 32.3 (32.0-36.0) g/dL RDW Coeff of Prashant 17.0 H (10.0-15.0) % Plt Count 192 (130-400) x10^3/uL Neut % (Auto) 64.4 (50.0-80.0) % Lymph % (Auto) 11.0 L (25.0-50.0) % [place] % (Auto) 6.7 (2.0-11.0) % Eos % (Auto) 17.8 H (0.0-4.0) % Baso % (Auto) 0.1 L (0.2-1.2) % PT 85.9 H (10.0-12.8) SEC INR 7.7 H* (2.0-3.5) Sodium (136-145) mmol/L Potassium (3.5-5.1) mmol/L Chloride (98-107) mmol/L Carbon Dioxide (21-32) mmol/L Anion Gap (10-20) mmol/L BUN (7-18) mg/dL Creatinine (0.70-1.30) mg/dL Est Cr Clr Drug Dosing mL/min Estimated GFR (MDRD) Glucose (74-106) mg/dL POC Glucose 99 (74-106) mg/dL Calcium (8.5-10.1) mg/dL Corrected Calcium (8.5-10.1) mg/dL Magnesium (1.8-2.4) mg/dL Total Bilirubin (0.2-1.0) mg/dL AST (15-37) U/L ALT (16-63) U/L Alkaline Phosphatase (46-116) U/L Total Protein (6.4-8.2) g/dL Albumin (3.4-5.0) g/dL Globulin Albumin/Globulin Ratio 02/02/ Range/Units 06:21 WBC (4.0-10.0) x10^3/uL RBC (4.5-6.0) x10^6/uL Hgb (14.0-18.0) g/dL Hct (40.0-52.0) % MCV (78.0-93.0) fL MCH (26.0-32.0) pg MCHC (32.0-36.0) g/dL RDW Coeff of Prashant (10.0-15.0) % Plt Count (130-400) x10^3/uL Neut % (Auto) (50.0-80.0) % Lymph % (Auto) (25.0-50.0) % [place] % (Auto) (2.0-11.0) % Eos % (Auto) (0.0-4.0) % Baso % (Auto) (0.2-1.2) % PT (10.0-12.8) SEC INR (2.0-3.5) Sodium 144 (136-145) mmol/L Potassium 4.5 (3.5-5.1) mmol/L Chloride 112 H (98-107) mmol/L Carbon Dioxide 21 (21-32) mmol/L Anion Gap 15.5 (10-20) mmol/L BUN 32 H (7-18) mg/dL Creatinine 1.5 H (0.70-1.30) mg/dL Est Cr Clr Drug Dosing 52.39 mL/min Estimated GFR (MDRD) 49 Glucose 119 H (74-106) mg/dL POC Glucose (74-106) mg/dL Calcium 7.5 L (8.5-10.1) mg/dL Corrected Calcium 8.70 (8.5-10.1) mg/dL Magnesium 1.9 (1.8-2.4) mg/dL Total Bilirubin 0.3 (0.2-1.0) mg/dL AST 199 H (15-37) U/L ALT 160 H (16-63) U/L Alkaline Phosphatase 147 H (46-116) U/L Total Protein 6.3 L (6.4-8.2) g/dL Albumin 2.5 L (3.4-5.0) g/dL Globulin 3.8 Albumin/Globulin Ratio 0.66 Med Orders - Current: Current Medications Albuterol (Proventil Neb Soln) 2.5 mg INH Q4H PRN PRN Reason: Shortness of Breath Albuterol/Ipratropium (Duoneb 3.0-0.5 Mg/3 Ml) 3 ml INH Q6HRRT [facility] Last Admin: 02/02/19 06:00 Dose: 3 ml Atorvastatin Calcium (Lipitor) 80 mg PO DAILY [facility] Last Admin: 02/02/19 07:26 Dose: 80 mg Azithromycin (Zithromax) 500 mg PO DAILY [facility] Stop: 02/02/19 23:00 Last Admin: 02/02/19 07:26 Dose: 500 mg Cyclobenzaprine HCl (Flexeril) 5 mg PO TID PRN PRN Reason: Muscle Spasm Potassium Chloride/Sodium Chloride (Normal Saline With 20 Meq Kcl) 1,000 mls @ 150 mls/hr IV ASDIRECTED [facility] Last Admin: 02/02/19 06:08 Dose: 150 mls/hr Isosorbide Mononitrate (Imdur) 30 mg PO DAILY [facility] Last Admin: 02/02/19 07:26 Dose: 30 mg Levothyroxine Sodium (Levothyroxine) 125 mcg PO ACBREAKFAST [facility] Last Admin: 02/02/19 06:00 Dose: 125 mcg Metoprolol Succinate (Toprol Xl) 100 mg PO DAILY [facility] Last Admin: 02/02/19 07:26 Dose: 100 mg Nitroglycerin (Nitrostat) 0.4 mg SL Q5M PRN PRN Reason: Chest Pain Pantoprazole Sodium (Protonix) 40 mg PO ACBREAKFAST [facility] Last Admin: 02/02/19 06:00 Dose: 40 mg Sitagliptin Phosphate (Januvia) 100 mg PO DAILY [facility] Last Admin: 02/02/19 07:26 Dose: 100 mg Sodium Chloride (Saline Flush) 10 ml FLUSH ASDIRECTED PRN PRN Reason: Keep Vein Open Discontinued Medications Albuterol/Ipratropium (Duoneb 3.0-0.5 Mg/3 Ml) 3 ml INH Q6HR [facility] Last Admin: 02/01/19 07:04 Dose: 3 ml Heparin Sodium (Porcine) (Heparin Sodium) 5,000 units SUBCUT Q12H [facility] Last Admin: 02/01/19 07:42 Dose: 5,000 units Lactated Ringer's (Ringers, Lactated) 1,000 mls @ 150 mls/hr IV ASDIRECTED [facility] Last Admin: 02/01/19 13:19 Dose: 150 mls/hr Magnesium Sulfate 4 gm/ Premix 100 mls @ 25 mls/hr IV ONETIME ONE Stop: 02/01/19 12:15 Last Admin: 02/01/19 08:39 Dose: 25 mls/hr
[2019-02-02 09:58] VITALS: BP 92/57
== END 2019-02-02 10:10 | disposition home or self-care (01) | DRG 372 ==
LOC: VM.MS 14:47
PROVIDERS: ADMIT Internal Medicine; ATTEND Internal Medicine
DX: A02.0 Salmonella enteritis (principal); N17.9 Acute kidney failure, unspecified; I50.22 Chronic systolic (congestive) heart failure; E11.9 Type 2 diabetes mellitus without complications; I48.91 Unspecified atrial fibrillation; E03.9 Hypothyroidism, unspecified; I25.10 Atherosclerotic heart disease of native coronary artery without angina pectoris; J44.9 Chronic obstructive pulmonary disease, unspecified; E86.0 Dehydration; I11.0 Hypertensive heart disease with heart failure; R74.0 Nonspecific elevation of levels of transaminase and lactic acid dehydrogenase [LDH]; D72.1 Eosinophilia; T36.3X5A Adverse effect of macrolides, initial encounter; Z95.5 Presence of coronary angioplasty implant and graft; Z95.2 Presence of prosthetic heart valve; Z93.0 Tracheostomy status; I25.2 Old myocardial infarction; Z87.891 Personal history of nicotine dependence; Z79.82 Long term (current) use of aspirin; Z79.84 Long term (current) use of oral hypoglycemic drugs
CPT/HCPCS: 36415; 51798; 80048; 80053; 81003; 82962; 83605; 83735; 84443; 85025; 85610; 85652; 86140; 87045; 87046; 87493; 87899; 94640; 94760; A9270-GY; J1644; J3475; J3480; J7120; J7620-GY

== ENCOUNTER 2019-07-14 20:30 | Emergency (ER) | payer MEDICAID ==
--- NOTE | 2019-07-14 20:46 | EDM.PDOC ---
ED HPI GENERAL MEDICAL PROBLEM - General Stated Complaint: CHEST PAIN Time Seen by Provider: 07/14/19 20:45 - History of Present Illness INITIAL COMMENTS - FREE TEXT/NARRATIVE: PT presents with on and off chest pain throughout the day, was sharp lasting for a few seconds then going away. Pt is pain free at this time. Onset: Today Location: Reports: Chest Quality: Reports: Sharp - Related Data Allergies Allergy/AdvReac Type Severity Reaction Status Date / Time azithromycin Allergy Mild Liver Verified 02/02/19 09:45 Problems empagliflozin AdvReac Mild Other Verified 02/02/19 09:41 [From Jardiance] Home Meds: Home Meds Aspirin [Damián Chewable Aspirin] 81 mg PO DAILY 02/15/15 [History] Clopidogrel [Plavix] 75 mg PO DAILY 02/15/15 [History] Ferrous Sulfate 325 mg PO DAILY 02/15/15 [History] Nitroglycerin [Nitrostat] 0.4 mg SL Q5M PRN 02/15/15 [History] atorvaSTATin [Lipitor] 80 mg PO DAILY 02/15/15 [History] metFORMIN [Glucophage] 1,000 mg PO BIDMEALS 02/15/15 [History] Albuterol Sulfate [Proair Hfa] 1 - 2 inh IH Q4HR PRN 03/27/17 [History] Cyclobenzaprine [Flexeril] 5 mg PO TID PRN 03/27/17 [History] Isosorbide Mononitrate [Imdur] 30 mg PO DAILY 03/27/17 [History] Losartan [Cozaar] 25 mg PO DAILY 03/27/17 [History] Pantoprazole Sodium [Protonix] 40 mg PO DAILY 03/27/17 [History] Furosemide 40 mg PO DAILY 01/31/19 [History] Furosemide 40 mg PO DAILY PRN 01/31/19 [History] Metoprolol Succinate [Toprol XL 100mg] 100 mg PO DAILY 01/31/19 [History] SitaGLIPtin [Januvia] 100 mg PO DAILY 01/31/19 [History] Umeclidinium Brm/Vilanterol Tr [Anoro Ellipta 62.5-25 MCG] 1 each IH DAILY 01/31 [History] Levothyroxine 125 mcg PO ACBREAKFAST tablet 02/02/19 [Rx] Levothyroxine Sodium [Synthroid] 125 mcg PO DAILY 02/02/19 [History] Past Medical History HEENT History: Reports: Otitis Media Cardiovascular History: Reports: Heart Valve Replacement, Hypertension, [place], Stents Respiratory History: Reports: Intubation, Previous, Other (See Below) Other Respiratory History: Respiratory failure Endocrine/Metabolic History: Reports: Diabetes, Type II Hematologic History: Reports: Anemia - Infectious Disease History Infectious Disease History: Reports: Other (See Below) - Past Surgical History Cardiovascular Surgical History: Reports: Coronary Artery Stent Social & Family History - Family History Family Medical History: Noncontributory - Caffeine Use Caffeine Use: Reports: Coffee - Sexual History Sexual History: Reports: None - Living Situation & Occupation Living situation: Reports: Single, with Family Occupation: Unemployed ED ROS GENERAL - Review of Systems Review Of Systems: See Below Constitutional: Reports: No Symptoms HEENT: Reports: No Symptoms Respiratory: Reports: No Symptoms Cardiovascular: Reports: Chest Pain Endocrine: Reports: No Symptoms GI/Abdominal: Reports: No Symptoms : Reports: No Symptoms Musculoskeletal: Reports: No Symptoms Skin: Reports: No Symptoms Neurological: Reports: No Symptoms Psychiatric: Reports: No Symptoms Hematologic/Lymphatic: Reports: No Symptoms Immunologic: Reports: No Symptoms ED EXAM, GENERAL - Physical Exam Exam: See Below Exam Limited By: No Limitations General Appearance: Alert, WD/WN, No Apparent Distress Eye Exam: Bilateral Eye: Normal Inspection Nose: Normal Inspection, Normal Mucosa Throat/Mouth: Normal Inspection Head: Atraumatic, Normocephalic Neck: Normal Inspection Respiratory/Chest: No Respiratory Distress, Lungs Clear, Normal Breath Sounds Cardiovascular: Normal Peripheral Pulses, Regular Rate, Rhythm, No Edema, No Gallop, No JVD, No Murmur, No Rub GI/Abdominal: Normal Bowel Sounds Back Exam: Normal Inspection, Full Range of Motion Extremities: Normal Inspection Neurological: Alert, Oriented Psychiatric: Normal Affect, Normal Mood Skin Exam: Warm, Dry, Intact Course - Vital Signs Last Recorded V/S: Last Vital Signs Temp 36.8 C 07/14/19 20:30 Pulse Resp 16 07/14/19 20:30 BP 96/68 07/14/19 20:30 Pulse Ox 99 07/14/19 20:30 - Orders/Labs/Meds Orders: Active Orders 24 hr Category Date Time Status EKG 12 Lead [EKG Documentation Completion] [RC] STAT Care 07/14/19 20:38 Active Labs: Laboratory Tests 07/14/19 07/14/19 07/14/19 Range/Units 20:52 20:52 20:58 WBC 9.2 (4.0-10.0) x10^3/uL RBC 3.96 L (4.5-6.0) x10^6/uL Hgb 10.6 L (14.0-18.0) g/dL Hct 32.5 L (40.0-52.0) % MCV 82.1 (78.0-93.0) fL MCH 26.8 (26.0-32.0) pg MCHC 32.6 (32.0-36.0) g/dL RDW Coeff of Prashant 15.9 H (10.0-15.0) % Plt Count 221 (130-400) x10^3/uL Add Manual Diff Yes Neutrophils % (Manual) 65 (50-80) % Lymphocytes % (Manual) 25 (25-50) % Monocytes % (Manual) 7 (2-11) % Eosinophils % (Manual) 3 (0-4) % Nucleated RBCs 1 (0-5) /100WBC Platelet Estimate Adequate Anisocytosis 1+ slight H Sodium 141 (69-191) mmol/L Potassium 4.1 (1.5-9.9) mmol/L Chloride 102 (54-184) mmol/L Carbon Dioxide 25 (21-32) mmol/L Anion Gap 18.1 (10-20) mmol/L BUN 29 H (7-18) mg/dL Creatinine 1.9 H (0.70-1.30) mg/dL Est Cr Clr Drug Dosing TNP Estimated GFR (MDRD) 37 Glucose 120 H (74-106) mg/dL Calcium 7.7 L (8.5-10.1) mg/dL POC Troponin I 0.01 (0.00-0.08) ng/mL Departure - Departure Time of Disposition: 22:07 Disposition: Home, Self-Care 01 Condition: Good Clinical Impression: Non-cardiac chest pain Instructions: Nonspecific Chest Pain Referrals: Jimmy Dominguez MD [Primary Care Provider] - - My Orders Last 24 Hours: My Active Orders 07/14/19 20:38 EKG 12 Lead [EKG Documentation Completion] [RC] STAT - Assessment/Plan Last 24 Hours: My Active Orders 07/14/19 20:38 EKG 12 Lead [EKG Documentation Completion] [RC] STAT
[2019-07-14 21:25] LABS: CHLORIDE,CL 102 mmol/L (54-184); SODIUM,NA 141 mmol/L (69-191)
[2019-07-14 21:47] LABS: ANION GAP 18.1 mmol/L (10-20)
[2019-07-15 02:22] VITALS: BP 98/71; PULSE 63
== END 2019-07-14 22:11 | disposition home or self-care (01) ==
LOC: VM.ED 20:30
DX: R07.89 Other chest pain (principal); I25.2 Old myocardial infarction; I10 Essential (primary) hypertension; E11.9 Type 2 diabetes mellitus without complications; Z79.84 Long term (current) use of oral hypoglycemic drugs; Z79.899 Other long term (current) drug therapy; Z79.82 Long term (current) use of aspirin; Z88.1 Allergy status to other antibiotic agents; Z88.8 Allergy status to other drugs, medicaments and biological substances
CPT/HCPCS: 36415; 80048; 84484; 85025; 93005; 99285-25

== ENCOUNTER 2019-08-15 16:21 | Inpatient (IN) | payer MEDICAID ==
--- NOTE | 2019-08-15 16:41 | EDM.PDOC ---
ED HPI GENERAL MEDICAL PROBLEM - General Stated Complaint: ER Time Seen by Provider: 08/15/19 16:38 Source of Information: Reports: Patient - History of Present Illness INITIAL COMMENTS - FREE TEXT/NARRATIVE: Patient was unable to get into [facility] today. He was going to see Joanna but instead came into the emergency room. He has had multiple bowel movements today. Pigmented stool. He has [place] been out of the [place] recently. Loss of appetite. Feeling weak. He is quite pale. The patient does not like to have his blood drawn. His lactic acid was found to be 2.8. I did order another lot casted and 4 hours. I also want to start him on antibiotics however we had not had a blood draw yet for culture. Therefore I did schedule the Rocephin to be after the blood culture. This will be about the same time as the lactic acid. I will sign out to Ted. Patient will be admitted for observation. Trending his lactic acid. Chest x-ray. UA. Blood sugars and sliding scale. Please use this as my admitting H&P for his observation status. 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: Other (see below) (Lomotil) - Related Data Allergies Allergy/AdvReac Type Severity Reaction Status Date / Time azithromycin Allergy Mild Liver Verified 08/15/19 17:17 Problems empagliflozin AdvReac Mild Other Verified 08/15/19 17:17 [From [facility]onte] Home Meds: Home Meds Aspirin [Damián Chewable Aspirin] 81 mg PO DAILY 02/15/15 [History] Ferrous Sulfate 325 mg PO DAILY 02/15/15 [History] Nitroglycerin [Nitrostat] 0.4 mg SL Q5M PRN 02/15/15 [History] atorvaSTATin [Lipitor] 80 mg PO DAILY 02/15/15 [History] metFORMIN [Glucophage] 1,000 mg PO BIDMEALS 02/15/15 [History] Albuterol Sulfate [Proair Hfa] 1 - 2 inh IH Q4HR PRN 03/27/17 [History] Cyclobenzaprine [Flexeril] 5 mg PO TID PRN 03/27/17 [History] Isosorbide Mononitrate [Imdur] 30 mg PO DAILY 03/27/17 [History] Losartan [Cozaar] 25 mg PO DAILY 03/27/17 [History] Pantoprazole Sodium [Protonix] 40 mg PO DAILY 03/27/17 [History] Furosemide 40 mg PO DAILY 01/31/19 [History] Furosemide 40 mg PO DAILY PRN 01/31/19 [History] Metoprolol Succinate [Toprol XL 100mg] 100 mg PO DAILY 01/31/19 [History] SitaGLIPtin [Januvia] 100 mg PO DAILY 01/31/19 [History] Umeclidinium Brm/Vilanterol Tr [Anoro Ellipta 62.5-25 MCG] 1 each IH DAILY 01/31 [History] Levothyroxine 125 mcg PO ACBREAKFAST tablet 02/02/19 [Rx] Levothyroxine Sodium [Synthroid] 125 mcg PO DAILY 02/02/19 [History] Warfarin Sodium [Coumadin] 5 mg PO DAILY 07/15/19 [History] Past Medical History HEENT History: Reports: Otitis Media Cardiovascular History: Reports: Heart Valve Replacement, Hypertension, [place], Stents Respiratory History: Reports: Intubation, Previous, Other (See Below) Other Respiratory History: Respiratory failure Endocrine/Metabolic History: Reports: Diabetes, Type II Hematologic History: Reports: Anemia - Infectious Disease History Infectious Disease History: Reports: Other (See Below) - Past Surgical History Cardiovascular Surgical History: Reports: Coronary Artery Stent Social & Family History - Family History Family Medical History: Noncontributory - Caffeine Use Caffeine Use: Reports: Coffee - Sexual History Sexual History: Reports: None - Living Situation & Occupation Living situation: Reports: Single, with Family Occupation: Unemployed ED ROS GENERAL - Review of Systems Review Of Systems: ROS reveals no pertinent complaints other than HPI. ED EXAM, GENERAL - Physical Exam Exam: See Below Exam Limited By: No Limitations General Appearance: Moderate Distress, Severe Distress Head: Atraumatic Neck: Normal Inspection. No: Lymphadenopathy (L), Lymphadenopathy (R) Respiratory/Chest: Respiratory Distress, Decreased Breath Sounds, Accessory Muscle Use, Prolonged Expiration, Other (Chronic respiratory issues.) Cardiovascular: Regular Rate, Rhythm GI/Abdominal: Normal Bowel Sounds, Soft Extremities: Normal Inspection Neurological: Alert, Oriented Psychiatric: Anxious Skin Exam: Diaphoretic Course - Vital Signs Last Recorded V/S: Last Vital Signs Temp 36.5 C 08/15/19 16:25 Pulse 73 08/15/19 17:45 Resp 16 08/15/19 17:45 BP 153/86 H 08/15/19 17:45 Pulse Ox 90 L 08/15/19 17:45 - Orders/Labs/Meds Orders: Active Orders 24 hr Category Date Time Status Patient Status [ADT] Routine ADT 08/15/19 18:09 Ordered Antiembolic Devices [RC] .Routine Care 08/15/19 18:12 Ordered Pulse Oximetry [RC] PRN Care 08/15/19 18:11 Ordered RT Aerosol Therapy [RC] ASDIRECTED Care 08/15/19 18:22 Ordered Up With Assistance [RC] ASDIRECTED Care 08/15/19 18:09 Ordered VTE/DVT Education [RC] PER UNIT ROUTINE Care 08/15/19 18:12 Ordered Vital Signs [RC] Q4H Care 08/15/19 18:09 Ordered Heart Healthy Diet [DIET] Diet 08/15/19 Dinner Ordered CBC WITH AUTO DIFF [HEME] AM Lab 08/16/19 05:11 Ordered COMPREHENSIVE METABOLIC PN,CMP [CHEM] AM Lab 08/16/19 05:11 Ordered CULTURE BLOOD [BC] Stat Lab 08/15/19 18:04 Ordered LACTIC ACID [CHEM] Routine Lab 08/15/19 22:00 Ordered Aspirin Med 08/16/19 08:00 Ordered 81 mg PO DAILY Cyclobenzaprine [Flexeril] Med 08/15/19 18:14 Ordered 5 mg PO TID PRN Ferrous Sulfate Med 08/16/19 08:00 Ordered 325 mg PO DAILY Furosemide [Lasix] Med 08/16/19 08:00 Ordered 40 mg PO DAILY Ipratropium [Atrovent] Med 08/15/19 19:00 Ordered 0.5 mg NEB Q6HRRT Isosorbide Mononitrate [Imdur] Med 08/16/19 08:00 Ordered 30 mg PO DAILY Levalbuterol HCl [Xopenex] Med 08/15/19 18:22 Ordered 1.25 mg NEB Q2H PRN Levothyroxine Med 08/16/19 07:00 Ordered 125 mcg PO ACBREAKFAST Levothyroxine Med 08/16/19 08:00 Ordered 125 mcg PO DAILY Losartan [Cozaar] Med 08/16/19 08:00 Ordered 25 mg PO DAILY Metoprolol Succinate [Toprol XL 100mg] Med 08/16/19 08:00 Ordered 100 mg PO DAILY Pantoprazole [ProTONIX] Med 08/16/19 08:00 Ordered 40 mg PO DAILY Warfarin [Coumadin] Med 08/16/19 08:00 Ordered 5 mg PO DAILY atorvaSTATin [Lipitor] Med 08/16/19 08:00 Ordered 80 mg PO DAILY cefTRIAXone [Rocephin] Med 08/15/19 23:00 Ordered 1 gm IVPUSH DAILY Blood Culture x2 Reflex Set [OM.PC] Stat Oth 08/15/19 18:04 Ordered DVT/VTE Prophylaxis Reflex [OM.PC] Routine Oth 08/15/19 18:09 Ordered Medication Orders Aspirin (Aspirin) 81 mg PO DAILY [facility] Ceftriaxone Sodium (Rocephin) 1 gm IVPUSH DAILY [facility] Ferrous Sulfate (Ferrous Sulfate) 325 mg PO DAILY [facility] Furosemide (Lasix) 40 mg PO DAILY [facility] Ipratropium [place] (Atrovent) 0.5 mg NEB Q6HRRT [facility] Isosorbide Mononitrate (Imdur) 30 mg PO DAILY [facility] Levalbuterol HCl (Xopenex) 1.25 mg NEB Q2H PRN PRN Reason: Shortness of Breath Levothyroxine Sodium (Levothyroxine) 125 mcg PO ACBREAKFAST [facility] Levothyroxine Sodium (Levothyroxine) 125 mcg PO DAILY [facility] Losartan Potassium (Cozaar) 25 mg PO DAILY [facility] Non-Formulary Medication (Atorvastatin [Lipitor]) 80 mg PO DAILY [facility] Non-Formulary Medication (Cyclobenzaprine [Flexeril]) 5 mg PO TID PRN PRN Reason: Muscle Spasm Non-Formulary Medication (Metoprolol Succinate [Toprol Xl 100mg]) 100 mg PO DAILY [facility] Pantoprazole Sodium (Protonix) 40 mg PO DAILY [facility] Warfarin Sodium (Coumadin) 5 mg PO DAILY [facility] Labs: Laboratory Tests 08/15/19 08/15/19 08/15/19 Range/Units 17:00 17:00 17:00 WBC 17.5 H (4.0-10.0) x10^3/uL RBC 6.18 H (4.5-6.0) x10^6/uL Hgb 16.6 D (14.0-18.0) g/dL Hct 49.5 (40.0-52.0) % MCV 80.1 (78.0-93.0) fL MCH 26.9 (26.0-32.0) pg MCHC 33.5 (32.0-36.0) g/dL RDW Coeff of Prashant 19.0 H (10.0-15.0) % Plt Count 344 D (130-400) x10^3/uL Add Manual Diff Yes Neutrophils % (Manual) 87 H (50-80) % Lymphocytes % (Manual) 10 L (25-50) % Monocytes % (Manual) 1 L (2-11) % Eosinophils % (Manual) 1 (0-4) % Myelocytes % 1 H (0) % Platelet Estimate Adequate Anisocytosis 1+ slight H Sodium 141 (69-191) mmol/L Potassium 4.6 (1.5-9.9) mmol/L Chloride 106 (54-184) mmol/L Carbon Dioxide 16 L (21-32) mmol/L Anion Gap 23.6 H (10-20) mmol/L BUN 34 H (7-18) mg/dL Creatinine 2.2 H (0.70-1.30) mg/dL Est Cr Clr Drug Dosing TNP Estimated GFR (MDRD) 31 Glucose 211 H (74-106) mg/dL Hemoglobin A1c (4.5-6.2) % Lactic Acid 2.8 H* (0.4-2.0) mmol/L Calcium 8.0 L (8.5-10.1) mg/dL Corrected Calcium 8.64 (8.5-10.1) mg/dL Magnesium 1.2 L (1.8-2.4) mg/dL Total Bilirubin 0.4 (0.2-1.0) mg/dL AST 19 (15-37) U/L ALT 15 L (16-63) U/L Alkaline Phosphatase 97 (46-116) U/L C-Reactive Protein 3.1 H (<=0.9) mg/dL NT-Pro-B Natriuret Pep (<=125) pg/mL Total Protein 9.2 H (6.4-8.2) g/dL Albumin 3.2 L (3.4-5.0) g/dL Globulin 6.0 Albumin/Globulin Ratio 0.53 08/15/19 08/15/19 Range/Units 17:00 17:00 WBC (4.0-10.0) x10^3/uL RBC (4.5-6.0) x10^6/uL Hgb (14.0-18.0) g/dL Hct (40.0-52.0) % MCV (78.0-93.0) fL MCH (26.0-32.0) pg MCHC (32.0-36.0) g/dL RDW Coeff of Prashant (10.0-15.0) % Plt Count (130-400) x10^3/uL Add Manual Diff Neutrophils % (Manual) (50-80) % Lymphocytes % (Manual) (25-50) % Monocytes % (Manual) (2-11) % Eosinophils % (Manual) (0-4) % Myelocytes % (0) % Platelet Estimate Anisocytosis Sodium (69-191) mmol/L Potassium (1.5-9.9) mmol/L Chloride (54-184) mmol/L Carbon Dioxide (21-32) mmol/L Anion Gap (10-20) mmol/L BUN (7-18) mg/dL Creatinine (0.70-1.30) mg/dL Est Cr Clr Drug Dosing Estimated GFR (MDRD) Glucose (74-106) mg/dL Hemoglobin A1c 5.8 (4.5-6.2) % Lactic Acid (0.4-2.0) mmol/L Calcium (8.5-10.1) mg/dL Corrected Calcium (8.5-10.1) mg/dL Magnesium (1.8-2.4) mg/dL Total Bilirubin (0.2-1.0) mg/dL AST (15-37) U/L ALT (16-63) U/L Alkaline Phosphatase (46-116) U/L C-Reactive Protein (<=0.9) mg/dL NT-Pro-B Natriuret Pep 670 H (<=125) pg/mL Total Protein (6.4-8.2) g/dL Albumin (3.4-5.0) g/dL Globulin Albumin/Globulin Ratio Meds: Medications Generic Name Dose Route Start Last Admin Trade Name Freq PRN Reason Stop Dose Admin Aspirin 81 mg 08/16/19 08:00 Aspirin PO DAILY [facility] Ceftriaxone Sodium 1 gm 08/15/19 23:00 Rocephin IVPUSH DAILY [facility] Ferrous Sulfate 325 mg 08/16/19 08:00 Ferrous Sulfate PO DAILY [facility] Furosemide 40 mg 08/16/19 08:00 Lasix PO DAILY [facility] Ipratropium [place] 0.5 mg 08/15/19 19:00 Atrovent NEB Q6HRRT [facility] Isosorbide Mononitrate 30 mg 08/16/19 08:00 Imdur PO DAILY [facility] Levalbuterol HCl 1.25 mg 08/15/19 18:22 Xopenex NEB Q2H PRN Shortness of Breath Levothyroxine Sodium 125 mcg 08/16/19 07:00 Levothyroxine PO ACBREAKFAST [facility] Levothyroxine Sodium 125 mcg 08/16/19 08:00 Levothyroxine PO DAILY [facility] Losartan Potassium 25 mg 08/16/19 08:00 Cozaar PO DAILY [facility] Non-Formulary Medication 80 mg 08/16/19 08:00 Atorvastatin [Lipitor] PO DAILY [facility] Non-Formulary Medication 5 mg 08/15/19 18:14 Cyclobenzaprine [Flexeril] PO TID PRN Muscle Spasm Non-Formulary Medication 100 mg 08/16/19 08:00 Metoprolol Succinate [Toprol Xl 100mg] PO DAILY [facility] Pantoprazole Sodium 40 mg 08/16/19 08:00 Protonix PO DAILY [facility] Warfarin Sodium 5 mg 08/16/19 08:00 Coumadin PO DAILY [facility] Discontinued Medications Generic Name Dose Route Start Last Admin Trade Name Lucho PRN Reason Stop Dose Admin Sodium Chloride 1,000 mls @ 999 mls/hr 08/15/19 17:09 08/15/19 17:23 Normal Saline IV 08/15/19 18:09 999 mls/hr .BOLUS ONE Administration Departure - Departure Time of Disposition: 18:08 Disposition: Refer to Observation Preliminary Cause of *Q: Sepsis & Multi System Organ Failure Condition: Fair Clinical Impression: Diarrhea, Gastroenteritis, Elevated lactic acid level Leukocytosis, unspecified Qualifiers: Leukocytosis type: unspecified Qualified Code(s): D72.829 - Elevated white blood cell count, unspecified - Discharge Information *PRESCRIPTION DRUG MONITORING PROGRAM REVIEWED*: Not Applicable *COPY OF PRESCRIPTION DRUG MONITORING REPORT IN PATIENT MILENA: Not Applicable Referrals: Jimmy Dominguez MD [Primary Care Provider] - - My Orders Last 24 Hours: My Active Orders 08/15/19 18:04 CULTURE BLOOD [BC] Stat Blood Culture x2 Reflex Set [OM.PC] Stat 08/15/19 18:09 Patient Status [ADT] Routine Up With Assistance [RC] ASDIRECTED Vital Signs [RC] Q4H DVT/VTE Prophylaxis Reflex [OM.PC] Routine 08/15/19 18:11 Pulse Oximetry [RC] PRN 08/15/19 18:12 Antiembolic Devices [RC] .Routine VTE/DVT Education [RC] PER UNIT ROUTINE 08/15/19 18:14 Cyclobenzaprine [Flexeril] 5 mg PO TID PRN 08/15/19 18:22 RT Aerosol Therapy [RC] ASDIRECTED Levalbuterol HCl [Xopenex] 1.25 mg NEB Q2H PRN 08/15/19 19:00 Ipratropium [Atrovent] 0.5 mg NEB Q6HRRT 08/15/19 22:00 LACTIC ACID [CHEM] Routine 08/15/19 23:00 cefTRIAXone [Rocephin] 1 gm IVPUSH DAILY 08/15/19 Dinner Heart Healthy Diet [DIET] 08/16/19 05:11 CBC WITH AUTO DIFF [HEME] AM COMPREHENSIVE METABOLIC PN,CMP [CHEM] AM 08/16/19 07:00 Levothyroxine 125 mcg PO ACBREAKFAST 08/16/19 08:00 Aspirin 81 mg PO DAILY Ferrous Sulfate 325 mg PO DAILY Furosemide [Lasix] 40 mg PO DAILY Isosorbide Mononitrate [Imdur] 30 mg PO DAILY Levothyroxine 125 mcg PO DAILY Losartan [Cozaar] 25 mg PO DAILY Metoprolol Succinate [Toprol XL 100mg] 100 mg PO DAILY Pantoprazole [ProTONIX] 40 mg PO DAILY Warfarin [Coumadin] 5 mg PO DAILY atorvaSTATin [Lipitor] 80 mg PO DAILY - Assessment/Plan Last 24 Hours: My Active Orders 08/15/19 18:04 CULTURE BLOOD [BC] Stat Blood Culture x2 Reflex Set [OM.PC] Stat 08/15/19 18:09 Patient Status [ADT] Routine Up With Assistance [RC] ASDIRECTED Vital Signs [RC] Q4H DVT/VTE Prophylaxis Reflex [OM.PC] Routine 08/15/19 18:11 Pulse Oximetry [RC] PRN 08/15/19 18:12 Antiembolic Devices [RC] .Routine VTE/DVT Education [RC] PER UNIT ROUTINE 08/15/19 18:14 Cyclobenzaprine [Flexeril] 5 mg PO TID PRN 08/15/19 18:22 RT Aerosol Therapy [RC] ASDIRECTED Levalbuterol HCl [Xopenex] 1.25 mg NEB Q2H PRN 08/15/19 19:00 Ipratropium [Atrovent] 0.5 mg NEB Q6HRRT 08/15/19 22:00 LACTIC ACID [CHEM] Routine 08/15/19 23:00 cefTRIAXone [Rocephin] 1 gm IVPUSH DAILY 08/15/19 Dinner Heart Healthy Diet [DIET] 08/16/19 05:11 CBC WITH AUTO DIFF [HEME] AM COMPREHENSIVE METABOLIC PN,CMP [CHEM] AM 08/16/19 07:00 Levothyroxine 125 mcg PO ACBREAKFAST 08/16/19 08:00 Aspirin 81 mg PO DAILY Ferrous Sulfate 325 mg PO DAILY Furosemide [Lasix] 40 mg PO DAILY Isosorbide Mononitrate [Imdur] 30 mg PO DAILY Levothyroxine 125 mcg PO DAILY Losartan [Cozaar] 25 mg PO DAILY Metoprolol Succinate [Toprol XL 100mg] 100 mg PO DAILY Pantoprazole [ProTONIX] 40 mg PO DAILY Warfarin [Coumadin] 5 mg PO DAILY atorvaSTATin [Lipitor] 80 mg PO DAILY
[2019-08-15] MEDS ORDERED: Sodium Chloride 0.9% 1,000 ML IV ONE (17:09)
[2019-08-15 17:26] LABS: HEMOGLOBIN A1C 5.8 % (4.5-6.2)
[2019-08-15 17:39] LABS: CHLORIDE,CL 106 mmol/L (54-184); SODIUM,NA 141 mmol/L (69-191)
[2019-08-15 17:41] LABS: ANION GAP 23.6 mmol/L (10-20)
[2019-08-15] MEDS ORDERED: Non-Formulary Medication 1 Each (Cyclobenzaprine [Flexeril] 5 MG) PO PRN (18:14)
[2019-08-15] MEDS ORDERED: Levalbuterol HCl 1.25 MG/0.5 ML Neb NEB PRN (18:22)
[2019-08-15] MEDS ORDERED: Ondansetron 4 MG/2 ML SDV IVPUSH PRN (19:32)
[2019-08-15] MEDS ORDERED: Magnesium Sulfate/Water 2 GM in Premix Bag 1 BAG IV ONE (20:01)
[2019-08-15] MEDS ORDERED: Cyclobenzaprine 10 MG Tab PO PRN (20:15)
[2019-08-15] MEDS: Sodium Chloride 0.9% 1,000 ML IV SCH (20:35)
--- NOTE | 2019-08-15 20:36 | CR ---
[id number] RAD/RAD Abd Flat and Upright 2V EXAM: ABDOMEN 3 VIEWS INDICATION: Diarrhea and cramping. COMPARISON: None. DISCUSSION: Nonspecific bowel gas pattern with multiple gas-filled nondilated small and large bowel loops. No free air or pneumatosis is identified. Degenerative changes in the spine. Convex left curvature centered at the thoracolumbar junction. Arterial calcifications. IMPRESSION: 1. Nonspecific bowel gas pattern. Agustin Issa MD 08/15/19 [id number] Thank you for allowing us to participate in the care of your patient.
[2019-08-15] MEDS: Ipratropium 0.02% 0.5 MG/2.5 ML Neb Soln NEB SCH ×2 (20:37→21:00)
--- NOTE | 2019-08-15 20:37 | CR ---
[id number] RAD/RAD Chest PA or AP 1V EXAM: FRONTAL CHEST INDICATION: Shortness of breath. COMPARISON: January 14, 2018. DISCUSSION: Stable cardiomegaly without evidence of pulmonary edema. Mild linear scarring in the left lung base and mild chronic pleural thickening bilaterally. Sternotomy. IMPRESSION: 1. Stable cardiomegaly without evidence of pulmonary edema. Agustin Issa MD 08/15/19 [id number] Thank you for allowing us to participate in the care of your patient.
[2019-08-15] MEDS ORDERED: cefTRIAXone 1 GM Vial IVPUSH SCH (20:45)
[2019-08-15] MEDS ORDERED: Ondansetron 4 MG Tab.DIS PO PRN (22:20)
[2019-08-15] MEDS ORDERED: Ipratropium 0.02% 0.5 MG/2.5 ML Neb Soln NEB PRN (22:21)
[2019-08-16] MEDS: Phytonadione 100 MCG Tab PO SCH ×2 (00:24→08:32)
[2019-08-16] MEDS: Indacaterol/Glycopyrrolate 1 EA Cap.W.Dev Kit of 6 IH SCH ×3 (00:25→19:49)
--- NOTE | 2019-08-16 02:29 | HP ---
CHIEF COMPLAINT: Diarrhea. HISTORY OF PRESENT ILLNESS: This is a 54-year-old male, who started having loose watery stools on 08/10. He had a very similar episode in admission back in January. He was having so many he came to the clinic, got some Lomotil, and took 3 doses Thursday, 2 Thursday, and 1 today without relief. He had 15 stools that were green to black, no blood. He was incontinent. He had 1 since getting here in the ER. He also had some dry heaving but no vomiting. He was able to keep down water. He last ate 1/2 a Pop-Tart this morning. Otherwise, he has had chills but no fever. No cough. No abdominal pain, but did feel a little crampy when he got here. Otherwise, he has not eaten any raw foods and has not traveled anywhere for parasites. He is in a monogamous relationship, no new partners. No recent antibiotics. He also had a recent increase in his creatinine up to 2.4 in June. He is still on metformin for diabetes. On his admission back in January, he had elevated liver enzymes and creatinine, but creatinine did return back to normal. He does have a history of admission for a cardiac arrest, but his recent EF showed EF 65%. ALLERGIES: Azithromycin and empagliflozin. CURRENT MEDICATION LIST: Reviewed and does show him to be on: 1. Aspirin 81 mg daily. 2. Crestor 40 mg daily. 3. Bevespi inhaler 2 puffs b.i.d. 4. Furosemide 40 mg daily. 5. Metformin 1000 b.i.d. 6. Nitroglycerin as needed for chest pain. 7. Januvia. 8. Cyclobenzaprine t.i.d. p.r.n. muscle spasm. 9. Iron 325 daily. 10.Imdur 30 mg daily. 11.Levothyroxine 125 daily. 12.Losartan 25 daily. 13.Toprol 100 daily. 14.Protonix 40 mg daily. 15.Warfarin. PAST MEDICAL HISTORY: Includes history of systolic heart failure before 2015; iron-deficiency anemia; bilateral carotid artery stenosis; history of smoking; atrial fibrillation, on Coumadin; coronary artery disease with stenting in 2017 and a previous cardiac arrest; COPD, on chronic oxygen 2 L; type 2 diabetes; history of aortic valve replacement; hypothyroidism; and previous MIs. PAST SURGICAL HISTORY: He had a trach and insertion of a PEG tube at one point. He had other cardiac surgeries, including a septal repair around age 6. SOCIAL HISTORY: The patient quit smoking about 6 months ago. He is unemployed. He has a partner, male. He is planning to get . He does currently live with his mom. FAMILY HISTORY: Mother is alive. Father at age 70 of a stroke and had an RI. REVIEW OF SYSTEMS: General: He is not aware of any weight changes. No fevers. HEENT: No sore throat. Cardiac: No chest pain or palpitations. Respiratory: No cough. Abdominal: As stated in the HPI. Musculoskeletal: He does not report any new joint aches or pains. Otherwise, all systems are reviewed and found to be negative unless otherwise stated. He has not had any confusion. PHYSICAL EXAMINATION: Vital Signs: Do show him to have a blood pressure 95/60, temperature 96.8, pulse 68, respiratory rate 18, and O2 is 98% on 2 L of oxygen. General: He is in no acute distress. Heart: Irregularly irregular with distant tones. Lungs: Lung sounds are clear to auscultation bilaterally without crackles or wheezes. Abdomen: Nondistended. Positive bowel sounds. Nontender. Extremities: Warm and dry. No edema. Mental Status: He is alert. He is orientated x3. RADIOGRAPHIC STUDIES: X-ray showed nonspecific bowel gas pattern. Chest x-ray: No infiltrates or edema. LABORATORY WORK: White count 17.5; hemoglobin 16.6, which is up from previous checks, suspect he is dehydrated; and platelets 344. He had 87% neutrophils. INR 6.1. Sodium 141; potassium 4.6; chloride 106; bicarb 16; BUN 34; creatinine 2.2, previous one here was 1.5, but 2.4, 1 month ago in the clinic; and blood sugar 211. A1c 5.8. Lactic 2.8. Calcium 8, magnesium 1.2, bilirubin 0.4, AST 19, ALT 15, alkaline phosphatase 97, and albumin 3.2. CRP 3.1. ProBNP is mildly elevated, 670. EMERGENCY ROOM COURSE: The patient was unable to get blood cultures. He did get a dose of IV Rocephin due to concern for sepsis. ASSESSMENT AND PLAN: 1. Diarrhea, ongoing since 08/10, so acute, unknown etiologies, second similar episode. The patient may have an underlying inflammatory bowel disease versus this is infectious. 2. Renal insufficiency. This was new back in June, has not significantly worsened with this acute diarrhea, but he appears dehydrated, so we will give him some IV fluids. We will get a UA. We will do a bladder scan and just see how he does. 3. Supratherapeutic INR, presumably due to poor oral intake with some vitamin K deficiency. I am going to give him low dose, 100 mcg daily, and repeat an INR tomorrow. Hold Coumadin. 4. History of coronary artery disease. We will continue low-dose aspirin. 5. History of heart failure. This seems stable, but we will monitor closely as we give him IV fluids. 6. Essential hypertension. We will hold his Lasix and his losartan due to renal failure. 7. Atrial fibrillation. He is rate controlled. We will continue metoprolol. 8. Chronic hypoxia with chronic obstructive pulmonary disease, stable. He is on his home oxygen. 9. Hypothyroidism. We will check a TSH. 10.Diabetes. Blood sugar is down to 157 this evening. He has been placed on a sliding scale with meals due to diarrhea. I will hold his metformin but continue Januvia 11. For deep venous thrombosis prophylaxis. He was supratherapeutic on warfarin. The plan at this point is the patient is a code level 1. He is admitted for acute cares for IV fluids. Stool sample and Clostridium difficile testing have been ordered. Dr. Fernando Dominguez is to assume care tomorrow. The patient is comfortable with this plan. No further ABX ordered at this time. DANIEL: 08/15/2019 22:33:37 MODL: 08/16/2019 02:24:57 /[id number]
[2019-08-16] MEDS: Levothyroxine 125 MCG Tab PO SCH (06:27)
[2019-08-16 07:11] LABS: CHLORIDE,CL 105 mmol/L (54-184); SODIUM,NA 138 mmol/L (69-191)
[2019-08-16] MEDS ORDERED: Losartan 25 MG Tab PO SCH (08:00)
[2019-08-16] MEDS ORDERED: Warfarin 5 MG Tab PO SCH (08:00)
[2019-08-16] MEDS ORDERED: Furosemide 40 MG Tab PO SCH (08:00)
[2019-08-16] MEDS ORDERED: Levothyroxine 125 MCG Tab PO SCH (08:00)
[2019-08-16] MEDS: atorvaSTATin 40 MG Tab PO SCH (08:31)
[2019-08-16] MEDS: Ferrous Sulfate 325 MG Tab PO SCH (08:31)
[2019-08-16] MEDS: Isosorbide Mononitrate 30 MG Tab.ER PO SCH (08:31)
[2019-08-16] MEDS: Aspirin 81 MG Tab.EC PO SCH (08:32)
[2019-08-16] MEDS: Metoprolol Succinate 50 MG Tab.ER PO SCH (08:32)
[2019-08-16] MEDS: Pantoprazole 40 MG Tab.CR PO SCH (08:32)
[2019-08-16] MEDS: Insulin Regular, Human 100 Units/ML 3 ML Vial SUBCUT SCH ×3 (08:33→17:50)
[2019-08-16] MEDS ORDERED: Phytonadione ORAL 2.5mg/2.5ml Soln Simple Syrup U/D PO ONE (09:59)
--- NOTE | 2019-08-16 10:02 | PCM.PN ---
- General Info Date of Service: 08/16/19 Admission Dx/Problem (Free Text): Subjective: Patient was admitted yesterday for diarrhea. Going on for past five days. Going up to 10 times a day despite taking antidiarrheals. No maryann fever maybe felt a bit chilled no blood in his stool until last evening but his INR is currently supratherapeutic. No recent antibiotics, no sick contacts. He had diarrhea earlier in the year since with significant eosinophilia, white count high but eos currently normal. Feeling better today ready to advance diet. Objective: His vital signs are stable heart and lungs clear abdomen soft nontender Assessment and plan: Diarrhea is improving. Probably still infectious. Given recurrence will consider doing colonoscopy outpatient. C. diff testing currently pending. INR supratherapeutic, it's gone up despite receiving microdose vitamin K. We' ll give him 1 mg. Recheck in a.m. Hold Coumadin interim. No sign of active bleeding currently. Creatinine is still above two. Running this high at routine follow-up couple months ago NOS. Prior to this he is usually running in the low ones although it had been a bit labile in the past. Will need to follow up outpatient in next month or so if still high will need to follow up with nephrology. - Patient Data Vitals - Most Recent: Last Vital Signs Temp 36.6 C 08/16/19 06:00 Pulse 66 08/16/19 08:32 Resp 18 08/16/19 06:00 BP 117/72 08/16/19 08:32 Pulse Ox 100 08/16/19 06:00 I&O - Last 24 Hours: Intake & Output 08/15/19 08/16/19 08/16/19 22:59 06:59 14:59 Intake Total 100 1325 120 Output Total 200 Balance 100 1125 120 Lab Results Last 24 Hours: Laboratory Results - last 24 hr 08/15/19 08/15/19 08/15/19 Range/Units 17:00 17:00 17:00 WBC 17.5 H (4.0-10.0) x10^3/uL RBC 6.18 H (4.5-6.0) x10^6/uL Hgb 16.6 D (14.0-18.0) g/dL Hct 49.5 (40.0-52.0) % MCV 80.1 (78.0-93.0) fL MCH 26.9 (26.0-32.0) pg MCHC 33.5 (32.0-36.0) g/dL RDW Coeff of Prashant 19.0 H (10.0-15.0) % Plt Count 344 D (130-400) x10^3/uL Add Manual Diff Yes Neutrophils % (Manual) 87 H (50-80) % Band Neutrophils % (0-6) % Lymphocytes % (Manual) 10 L (25-50) % Monocytes % (Manual) 1 L (2-11) % Eosinophils % (Manual) 1 (0-4) % Basophils % (Manual) (0-1) % Metamyelocytes % (0) % Myelocytes % 1 H (0) % Platelet Estimate Adequate Anisocytosis 1+ slight H Microcytosis ESR (0-16) mm/hr PT (10.0-12.8) SEC INR (2.0-3.5) Sodium 141 (69-191) mmol/L Potassium 4.6 (1.5-9.9) mmol/L Chloride 106 (54-184) mmol/L Carbon Dioxide 16 L (21-32) mmol/L Anion Gap 23.6 H (10-20) mmol/L BUN 34 H (7-18) mg/dL Creatinine 2.2 H (0.70-1.30) mg/dL Est Cr Clr Drug Dosing TNP Estimated GFR (MDRD) 31 Glucose 211 H (74-106) mg/dL POC Glucose (74-106) mg/dL Hemoglobin A1c (4.5-6.2) % Lactic Acid 2.8 H* (0.4-2.0) mmol/L Calcium 8.0 L (8.5-10.1) mg/dL Corrected Calcium 8.64 (8.5-10.1) mg/dL Magnesium 1.2 L (1.8-2.4) mg/dL Total Bilirubin 0.4 (0.2-1.0) mg/dL AST 19 (15-37) U/L ALT 15 L (16-63) U/L Alkaline Phosphatase 97 (46-116) U/L C-Reactive Protein 3.1 H (<=0.9) mg/dL NT-Pro-B Natriuret Pep (<=125) pg/mL Total Protein 9.2 H (6.4-8.2) g/dL Albumin 3.2 L (3.4-5.0) g/dL Globulin 6.0 Albumin/Globulin Ratio 0.53 TSH, Ultra Sensitive (0.358-3.74) uIU/mL Urine Color (YELLOW) Urine Appearance (CLEAR) Urine pH (5.0-8.0) Ur Specific [place] Urine Protein (NEGATIVE) mg/dL Urine Glucose (UA) (NEGATIVE) mg/dL Urine Ketones (NEGATIVE) mg/dL Urine Occult Blood (NEGATIVE) Urine Nitrite (NEGATIVE) Urine Bilirubin (NEGATIVE) Urine Urobilinogen (0.2) EU/dL Ur Leukocyte Esterase (NEGATIVE) Urine RBC (NOT SEEN) /HPF Urine WBC (NOT SEEN) /HPF Ur Squamous Epith Cells (NEGATIVE) /HPF Urine Bacteria (NEGATIVE) /HPF Hyaline Casts (NEGATIVE) /HPF Granular Casts (NEGATIVE) /HPF Urine Mucus (NEGATIVE) /LPF 08/15/19 08/15/19 08/15/19 Range/Units 17:00 17:00 17:00 WBC (4.0-10.0) x10^3/uL RBC (4.5-6.0) x10^6/uL Hgb (14.0-18.0) g/dL Hct (40.0-52.0) % MCV (78.0-93.0) fL MCH (26.0-32.0) pg MCHC (32.0-36.0) g/dL RDW Coeff of Prashant (10.0-15.0) % Plt Count (130-400) x10^3/uL Add Manual Diff Neutrophils % (Manual) (50-80) % Band Neutrophils % (0-6) % Lymphocytes % (Manual) (25-50) % Monocytes % (Manual) (2-11) % Eosinophils % (Manual) (0-4) % Basophils % (Manual) (0-1) % Metamyelocytes % (0) % Myelocytes % (0) % Platelet Estimate Anisocytosis Microcytosis ESR (0-16) mm/hr PT 67.7 H (10.0-12.8) SEC INR 6.1 H* (2.0-3.5) Sodium (69-191) mmol/L Potassium (1.5-9.9) mmol/L Chloride (54-184) mmol/L Carbon Dioxide (21-32) mmol/L Anion Gap (10-20) mmol/L BUN (7-18) mg/dL Creatinine (0.70-1.30) mg/dL Est Cr Clr Drug Dosing Estimated GFR (MDRD) Glucose (74-106) mg/dL POC Glucose (74-106) mg/dL Hemoglobin A1c 5.8 (4.5-6.2) % Lactic Acid (0.4-2.0) mmol/L Calcium (8.5-10.1) mg/dL Corrected Calcium (8.5-10.1) mg/dL Magnesium (1.8-2.4) mg/dL Total Bilirubin (0.2-1.0) mg/dL AST (15-37) U/L ALT (16-63) U/L Alkaline Phosphatase (46-116) U/L C-Reactive Protein (<=0.9) mg/dL NT-Pro-B Natriuret Pep 670 H (<=125) pg/mL Total Protein (6.4-8.2) g/dL Albumin (3.4-5.0) g/dL Globulin Albumin/Globulin Ratio TSH, Ultra Sensitive (0.358-3.74) uIU/mL Urine Color (YELLOW) Urine Appearance (CLEAR) Urine pH (5.0-8.0) Ur Specific [place] Urine Protein (NEGATIVE) mg/dL Urine Glucose (UA) (NEGATIVE) mg/dL Urine Ketones (NEGATIVE) mg/dL Urine Occult Blood (NEGATIVE) Urine Nitrite (NEGATIVE) Urine Bilirubin (NEGATIVE) Urine Urobilinogen (0.2) EU/dL Ur Leukocyte Esterase (NEGATIVE) Urine RBC (NOT SEEN) /HPF Urine WBC (NOT SEEN) /HPF Ur Squamous Epith Cells (NEGATIVE) /HPF Urine Bacteria (NEGATIVE) /HPF Hyaline Casts (NEGATIVE) /HPF Granular Casts (NEGATIVE) /HPF Urine Mucus (NEGATIVE) /LPF 08/16/19 08/16/19 08/16/19 Range/Units 06:00 06:10 06:35 WBC 11.2 H (4.0-10.0) x10^3/uL RBC 5.10 (4.5-6.0) x10^6/uL Hgb 13.6 L D (14.0-18.0) g/dL Hct 40.7 (40.0-52.0) % MCV 79.8 (78.0-93.0) fL MCH 26.7 (26.0-32.0) pg MCHC 33.4 (32.0-36.0) g/dL RDW Coeff of Prashant 17.4 H (10.0-15.0) % Plt Count 305 (130-400) x10^3/uL Add Manual Diff Yes Neutrophils % (Manual) 58 (50-80) % Band Neutrophils % 6 (0-6) % Lymphocytes % (Manual) 20 L (25-50) % Monocytes % (Manual) 6 (2-11) % Eosinophils % (Manual) 5 H (0-4) % Basophils % (Manual) 1 (0-1) % Metamyelocytes % 3 H (0) % Myelocytes % 1 H (0) % Platelet Estimate Adequate Anisocytosis 2+ moderate H Microcytosis 1+ slight H ESR (0-16) mm/hr PT (10.0-12.8) SEC INR (2.0-3.5) Sodium (69-191) mmol/L Potassium (1.5-9.9) mmol/L Chloride (54-184) mmol/L Carbon Dioxide (21-32) mmol/L Anion Gap (10-20) mmol/L BUN (7-18) mg/dL Creatinine (0.70-1.30) mg/dL Est Cr Clr Drug Dosing Estimated GFR (MDRD) Glucose (74-106) mg/dL POC Glucose 144 H (74-106) mg/dL Hemoglobin A1c (4.5-6.2) % Lactic Acid (0.4-2.0) mmol/L Calcium (8.5-10.1) mg/dL Corrected Calcium (8.5-10.1) mg/dL Magnesium (1.8-2.4) mg/dL Total Bilirubin (0.2-1.0) mg/dL AST (15-37) U/L ALT (16-63) U/L Alkaline Phosphatase (46-116) U/L C-Reactive Protein (<=0.9) mg/dL NT-Pro-B Natriuret Pep (<=125) pg/mL Total Protein (6.4-8.2) g/dL Albumin (3.4-5.0) g/dL Globulin Albumin/Globulin Ratio TSH, Ultra Sensitive (0.358-3.74) uIU/mL Urine Color Yellow (YELLOW) Urine Appearance Cloudy H (CLEAR) Urine pH 5.5 (5.0-8.0) Ur Specific [place] >=1.030 Urine Protein 100 H (NEGATIVE) mg/dL Urine Glucose (UA) Negative (NEGATIVE) mg/dL Urine Ketones Negative (NEGATIVE) mg/dL Urine Occult Blood Negative (NEGATIVE) Urine Nitrite Negative (NEGATIVE) Urine Bilirubin Small H (NEGATIVE) Urine Urobilinogen 0.2 (0.2) EU/dL Ur Leukocyte Esterase Negative (NEGATIVE) Urine RBC 0-5 (NOT SEEN) /HPF Urine WBC 0-5 (NOT SEEN) /HPF Ur Squamous Epith Cells Rare (NEGATIVE) /HPF Urine Bacteria Rare (NEGATIVE) /HPF Hyaline Casts Few H (NEGATIVE) /HPF Granular Casts Few H (NEGATIVE) /HPF Urine Mucus Few H (NEGATIVE) /LPF 08/16/19 08/16/19 08/16/19 Range/Units 06:35 06:35 06:35 WBC (4.0-10.0) x10^3/uL RBC (4.5-6.0) x10^6/uL Hgb (14.0-18.0) g/dL Hct (40.0-52.0) % MCV (78.0-93.0) fL MCH (26.0-32.0) pg MCHC (32.0-36.0) g/dL RDW Coeff of Prashant (10.0-15.0) % Plt Count (130-400) x10^3/uL Add Manual Diff Neutrophils % (Manual) (50-80) % Band Neutrophils % (0-6) % Lymphocytes % (Manual) (25-50) % Monocytes % (Manual) (2-11) % Eosinophils % (Manual) (0-4) % Basophils % (Manual) (0-1) % Metamyelocytes % (0) % Myelocytes % (0) % Platelet Estimate Anisocytosis Microcytosis ESR (0-16) mm/hr PT 85.7 H (10.0-12.8) SEC INR 7.7 H* (2.0-3.5) Sodium 138 (69-191) mmol/L Potassium 4.0 (1.5-9.9) mmol/L Chloride 105 (54-184) mmol/L Carbon Dioxide 16 L (21-32) mmol/L Anion Gap 21.0 H (10-20) mmol/L BUN 35 H (7-18) mg/dL Creatinine 2.3 H (0.70-1.30) mg/dL Est Cr Clr Drug Dosing TNP Estimated GFR (MDRD) 30 Glucose 143 H (74-106) mg/dL POC Glucose (74-106) mg/dL Hemoglobin A1c (4.5-6.2) % Lactic Acid 1.2 (0.4-2.0) mmol/L Calcium 7.3 L (8.5-10.1) mg/dL Corrected Calcium 8.50 (8.5-10.1) mg/dL Magnesium (1.8-2.4) mg/dL Total Bilirubin 0.2 (0.2-1.0) mg/dL AST 12 L (15-37) U/L ALT 12 L (16-63) U/L Alkaline Phosphatase 74 (46-116) U/L C-Reactive Protein (<=0.9) mg/dL NT-Pro-B Natriuret Pep (<=125) pg/mL Total Protein 7.3 (6.4-8.2) g/dL Albumin 2.5 L (3.4-5.0) g/dL Globulin 4.8 Albumin/Globulin Ratio 0.52 TSH, Ultra Sensitive (0.358-3.74) uIU/mL Urine Color (YELLOW) Urine Appearance (CLEAR) Urine pH (5.0-8.0) Ur Specific [place] Urine Protein (NEGATIVE) mg/dL Urine Glucose (UA) (NEGATIVE) mg/dL Urine Ketones (NEGATIVE) mg/dL Urine Occult Blood (NEGATIVE) Urine Nitrite (NEGATIVE) Urine Bilirubin (NEGATIVE) Urine Urobilinogen (0.2) EU/dL Ur Leukocyte Esterase (NEGATIVE) Urine RBC (NOT SEEN) /HPF Urine WBC (NOT SEEN) /HPF Ur Squamous Epith Cells (NEGATIVE) /HPF Urine Bacteria (NEGATIVE) /HPF Hyaline Casts (NEGATIVE) /HPF Granular Casts (NEGATIVE) /HPF Urine Mucus (NEGATIVE) /LPF 08/16/19 08/16/19 Range/Units 06:35 06:35 WBC (4.0-10.0) x10^3/uL RBC (4.5-6.0) x10^6/uL Hgb (14.0-18.0) g/dL Hct (40.0-52.0) % MCV (78.0-93.0) fL MCH (26.0-32.0) pg MCHC (32.0-36.0) g/dL RDW Coeff of Prashant (10.0-15.0) % Plt Count (130-400) x10^3/uL Add Manual Diff Neutrophils % (Manual) (50-80) % Band Neutrophils % (0-6) % Lymphocytes % (Manual) (25-50) % Monocytes % (Manual) (2-11) % Eosinophils % (Manual) (0-4) % Basophils % (Manual) (0-1) % Metamyelocytes % (0) % Myelocytes % (0) % Platelet Estimate Anisocytosis Microcytosis ESR 42 H (0-16) mm/hr PT (10.0-12.8) SEC INR (2.0-3.5) Sodium (69-191) mmol/L Potassium (1.5-9.9) mmol/L Chloride (54-184) mmol/L Carbon Dioxide (21-32) mmol/L Anion Gap (10-20) mmol/L BUN (7-18) mg/dL Creatinine (0.70-1.30) mg/dL Est Cr Clr Drug Dosing Estimated GFR (MDRD) Glucose (74-106) mg/dL POC Glucose (74-106) mg/dL Hemoglobin A1c (4.5-6.2) % Lactic Acid (0.4-2.0) mmol/L Calcium (8.5-10.1) mg/dL Corrected Calcium (8.5-10.1) mg/dL Magnesium 1.7 L (1.8-2.4) mg/dL Total Bilirubin (0.2-1.0) mg/dL AST (15-37) U/L ALT (16-63) U/L Alkaline Phosphatase (46-116) U/L C-Reactive Protein (<=0.9) mg/dL NT-Pro-B Natriuret Pep (<=125) pg/mL Total Protein (6.4-8.2) g/dL Albumin (3.4-5.0) g/dL Globulin Albumin/Globulin Ratio TSH, Ultra Sensitive 0.935 (0.358-3.74) uIU/mL Urine Color (YELLOW) Urine Appearance (CLEAR) Urine pH (5.0-8.0) Ur Specific [place] Urine Protein (NEGATIVE) mg/dL Urine Glucose (UA) (NEGATIVE) mg/dL Urine Ketones (NEGATIVE) mg/dL Urine Occult Blood (NEGATIVE) Urine Nitrite (NEGATIVE) Urine Bilirubin (NEGATIVE) Urine Urobilinogen (0.2) EU/dL Ur Leukocyte Esterase (NEGATIVE) Urine RBC (NOT SEEN) /HPF Urine WBC (NOT SEEN) /HPF Ur Squamous Epith Cells (NEGATIVE) /HPF Urine Bacteria (NEGATIVE) /HPF Hyaline Casts (NEGATIVE) /HPF Granular Casts (NEGATIVE) /HPF Urine Mucus (NEGATIVE) /LPF Med Orders - Current: Current Medications Aspirin (Halfprin) 81 mg PO DAILY [facility] Last Admin: 08/16/19 08:32 Dose: 81 mg Atorvastatin Calcium (Lipitor) 80 mg PO DAILY [facility] Last Admin: 08/16/19 08:31 Dose: 80 mg Cyclobenzaprine HCl (Flexeril) 5 mg PO TID PRN PRN Reason: Muscle Spasm Last Admin: 08/15/19 20:42 Dose: 5 mg Ferrous Sulfate (Ferrous Sulfate) 325 mg PO DAILY [facility] Last Admin: 08/16/19 08:31 Dose: 325 mg Glycopyrrolate/Indacaterol (Utibron Neohaler 27.5-15.6 Mcg) 1 each IH BID [facility] Last Admin: 08/16/19 08:37 Dose: 1 inhaler Sodium Chloride (Normal Saline) 1,000 mls @ 125 mls/hr IV ASDIRECTED [facility] Last Admin: 08/15/19 20:35 Dose: 125 mls/hr Insulin Human Regular (Humulin R) 0 unit SUBCUT TIDMEALS [facility]; Protocol Last Admin: 08/16/19 08:33 Dose: Not Given Ipratropium [place] (Atrovent) 0.5 mg NEB Q6HRRT PRN PRN Reason: Cough Isosorbide Mononitrate (Imdur) 30 mg PO DAILY [facility] Last Admin: 08/16/19 08:31 Dose: 30 mg Levalbuterol HCl (Xopenex) 1.25 mg NEB Q2H PRN PRN Reason: Shortness of Breath Levothyroxine Sodium (Levothyroxine) 125 mcg PO ACBREAKFAST [facility] Last Admin: 08/16/19 06:27 Dose: 125 mcg Metoprolol Succinate (Toprol Xl) 100 mg PO DAILY [facility] Last Admin: 08/16/19 08:32 Dose: 100 mg Ondansetron HCl (Zofran) 4 mg IVPUSH Q8H PRN PRN Reason: Nausea Last Admin: 08/15/19 20:42 Dose: 4 mg Ondansetron HCl (Zofran Odt) 4 mg PO Q6H PRN PRN Reason: Nausea/Vomiting Pantoprazole Sodium (Protonix) 40 mg PO DAILY [facility] Last Admin: 08/16/19 08:32 Dose: 40 mg Phytonadione (Vitamin K) 100 mcg PO DAILY [facility] Last Admin: 08/16/19 08:32 Dose: 100 mcg Sitagliptin Phosphate (Januvia) 100 mg PO DAILY [facility] Last Admin: 08/16/19 08:32 Dose: 100 mg Discontinued Medications Ceftriaxone Sodium (Rocephin) 1 gm IVPUSH DAILY@1999 [facility] Last Admin: 08/15/19 20:44 Dose: 1 gm Furosemide (Lasix) 40 mg PO DAILY [facility] Sodium Chloride (Normal Saline) 1,000 mls @ 999 mls/hr IV .BOLUS ONE Stop: 08/15/19 18:09 Last Admin: 08/15/19 17:23 Dose: 999 mls/hr Magnesium Sulfate 2 gm/ Premix 50 mls @ 25 mls/hr IV ONETIME ONE Stop: 08/15/19 22:00 Last Admin: 08/15/19 20:34 Dose: 25 mls/hr Ipratropium [place] (Atrovent) 0.5 mg NEB Q6HRRT [facility] Last Admin: 08/15/19 21:00 Dose: Not Given Levothyroxine Sodium (Levothyroxine) 125 mcg PO DAILY [facility] Losartan Potassium (Cozaar) 25 mg PO DAILY [facility] Non-Formulary Medication (Cyclobenzaprine [Flexeril]) 5 mg PO TID PRN PRN Reason: Muscle Spasm Warfarin Sodium (Coumadin) 5 mg PO DAILY [facility] - Problem List Review Problem List Initiated/Reviewed/Updated: Yes - My Orders Last 24 Hours: My Active Orders 08/16/19 09:59 Phytonadione [AquaMephyton] 1 mg PO ONETIME ONE
[2019-08-16] MEDS: Sodium Chloride 0.9% 1,000 ML IV SCH ×2 (13:36→21:25)
[2019-08-17] MEDS: Sodium Chloride 0.9% 1,000 ML IV SCH (05:29)
[2019-08-17] MEDS: Levothyroxine 125 MCG Tab PO SCH ×2 (05:34→06:31)
[2019-08-17 07:38] LABS: ANION GAP 17.4 mmol/L (10-20)
[2019-08-17] MEDS: Metoprolol Succinate 50 MG Tab.ER PO SCH (08:27)
[2019-08-17] MEDS: Phytonadione 100 MCG Tab PO SCH (08:27)
[2019-08-17] MEDS: atorvaSTATin 40 MG Tab PO SCH (08:29)
[2019-08-17] MEDS: Pantoprazole 40 MG Tab.CR PO SCH (08:29)
[2019-08-17] MEDS: Aspirin 81 MG Tab.EC PO SCH (08:29)
[2019-08-17] MEDS: Insulin Regular, Human 100 Units/ML 3 ML Vial SUBCUT SCH ×2 (08:29→11:58)
[2019-08-17] MEDS: Ferrous Sulfate 325 MG Tab PO SCH (08:29)
[2019-08-17] MEDS: Isosorbide Mononitrate 30 MG Tab.ER PO SCH (08:29)
[2019-08-17] MEDS: Indacaterol/Glycopyrrolate 1 EA Cap.W.Dev Kit of 6 IH SCH (08:30)
[2019-08-17 11:32] VITALS: BP 92/48; PULSE 61
--- NOTE | 2019-08-19 10:25 | PCM.DCSUM1 ---
Discharge Summary - Hospital Course Free Text/Narrative:: Patient was admitted for diarrhea. Seem to be feverish with this also had a white count. Stool was negative for C. diff. Resolved with conservative therapy here did not get any antibiotics. Couple loose stool still the day of discharge otherwise greatly improved, afebrile. Blood pressure chronically runs a bit low. Benign exam, heart and lungs are clear abdomen soft nontender. Second time happened in the past six months requiring hospitalization. He had significant eosinophilia NOS last time which resolved after number of weeks. Given recurrence and age over 50 we will proceed to colonoscopy as outpatient. INR was high here, did have some blood in one of his stools and his hemoglobin dropped a little bit which could be hemodilution as well. He's holding aspirin until we see him next week. He is on Coumadin for paroxysmal A. fib, there is no definitive history of valve replacement and surely no evidence of any mechanical valve. Coumadin clinic in [place] [place]. Recheck hemoglobin next week, still low may do upper endoscopy as well. Creatinine high at admission similar to three months ago, prior to this he hadn' t showed much for renal insufficiency. We will recheck this as well. If GFR is remaining below 45 he'll need follow-up with nephrology. Diagnosis: Stroke: No - Discharge Data Discharge Date: 08/17/19 Discharge Disposition: Home, Self-Care 01 Preliminary Cause of *Q: Sepsis & Multi System Organ Failure Condition: Good - Referral to Home Health Primary Care Physician: Jimmy Dominguez MD - Patient Instructions Diet: Regular Diet as Tolerated, Diabetic Diet - Discharge Plan *PRESCRIPTION DRUG MONITORING PROGRAM REVIEWED*: Not Applicable *COPY OF PRESCRIPTION DRUG MONITORING REPORT IN PATIENT MILENA: Not Applicable Home Medications: Home Meds Ferrous Sulfate 325 mg PO DAILY 02/15/15 [History] Nitroglycerin [Nitrostat] 0.4 mg SL Q5M PRN 02/15/15 [History] metFORMIN [Glucophage] 1,000 mg PO BIDMEALS 02/15/15 [History] Albuterol Sulfate [Proair Hfa] 1 - 2 inh IH Q4HR PRN 03/27/17 [History] Cyclobenzaprine [Flexeril] 5 mg PO TID PRN 03/27/17 [History] Isosorbide Mononitrate [Imdur] 30 mg PO DAILY 03/27/17 [History] Losartan [Cozaar] 25 mg PO DAILY 03/27/17 [History] Pantoprazole Sodium [Protonix] 40 mg PO DAILY 03/27/17 [History] Metoprolol Succinate [Toprol XL 100mg] 100 mg PO DAILY 01/31/19 [History] SitaGLIPtin [Januvia] 100 mg PO DAILY 01/31/19 [History] Levothyroxine Sodium [Synthroid] 125 mcg PO DAILY 02/02/19 [History] Warfarin Sodium [Coumadin] 5 mg PO DAILY 07/15/19 [History] Diphenoxylate HCl/Atropine [Lomotil] 1 tab PO QID PRN 08/15/19 [History] Glycopyrrolate/Formoterol Fum [Bevespi Aerosphere Inhaler] 2 puff IH BID [History] Rosuvastatin Calcium [Crestor] 40 mg PO DAILY 08/15/19 [History] Nicotine [Nicotine Patch] 21 mg TOP DAILY 08/16/19 [History] Insulin Regular, Human [HumuLIN R] 0 unit SUBCUT TIDMEALS vial 08/17/19 [Rx] Ipratropium [Atrovent] 0.5 mg NEB Q6HRRT PRN neb 08/17/19 [Rx] Levalbuterol HCl [Xopenex] 1.25 mg NEB Q2H PRN neb 08/17/19 [Rx] Levothyroxine 125 mcg PO ACBREAKFAST tablet 08/17/19 [Rx] Forms: ED Department Discharge Referrals: Jimmy Dominguez MD [Primary Care Provider] - - Discharge Summary/Plan Comment DC Time >30 min.: No - Patient Data Vitals - Most Recent: Last Vital Signs Temp 37.1 C 08/17/19 10:00 Pulse 61 08/17/19 10:00 Resp 18 08/17/19 04:50 BP 92/48 L 08/17/19 10:00 Pulse Ox 94 L 08/17/19 10:00 Weight - Most Recent: 97.341 kg BHAVIK Results - Last 24 hrs: Microbiology 08/16/19 06:35 Aerobic Blood Culture - Preliminary Blood - Venous NO GROWTH AFTER 3 DAYS Anaerobic Blood Culture - Preliminary NO GROWTH AFTER 3 DAYS 08/15/19 22:55 Stool Aerobic Culture - Preliminary Stool / Feces Med Orders - Current: Current Medications Discontinued Medications Aspirin (Halfprin) 81 mg PO DAILY [facility] [place] Last Admin: 08/17/19 08:29 Dose: 81 mg Atorvastatin Calcium (Lipitor) 80 mg PO DAILY [facility] [place] Last Admin: 08/17/19 08:29 Dose: 80 mg Ceftriaxone Sodium (Rocephin) 1 gm IVPUSH DAILY@1999 [facility] [place] Last Admin: 08/15/19 20:44 Dose: 1 gm Cyclobenzaprine HCl (Flexeril) 5 mg PO TID PRN PRN Reason: Muscle Spasm Last Admin: 08/15/19 20:42 Dose: 5 mg Ferrous Sulfate (Ferrous Sulfate) 325 mg PO DAILY [facility] [place] Last Admin: 08/17/19 08:29 Dose: 325 mg Furosemide (Lasix) 40 mg PO DAILY [facility] [place] Glycopyrrolate/Indacaterol (Utibron Neohaler 27.5-15.6 Mcg) 1 each IH BID [facility] [place] Last Admin: 08/17/19 08:30 Dose: 1 inhaler Sodium Chloride (Normal Saline) 1,000 mls @ 999 mls/hr IV .BOLUS ONE Stop: 08/15/19 18:09 Last Admin: 08/15/19 17:23 Dose: 999 mls/hr Sodium Chloride (Normal Saline) 1,000 mls @ 125 mls/hr IV ASDIRECTED [facility] [place] Last Admin: 08/17/19 05:29 Dose: 125 mls/hr Magnesium Sulfate 2 gm/ Premix 50 mls @ 25 mls/hr IV ONETIME ONE Stop: 08/15/19 22:00 Last Admin: 08/15/19 20:34 Dose: 25 mls/hr Insulin Human Regular (Humulin R) 0 unit SUBCUT TIDMEALS [facility] [place]; Protocol Last Admin: 08/17/19 11:58 Dose: Not Given Ipratropium [place] (Atrovent) 0.5 mg NEB Q6HRRT [facility] [place] Last Admin: 08/15/19 21:00 Dose: Not Given Ipratropium [place] (Atrovent) 0.5 mg NEB Q6HRRT PRN PRN Reason: Cough Isosorbide Mononitrate (Imdur) 30 mg PO DAILY [facility] [place] Last Admin: 08/17/19 08:29 Dose: 30 mg Levalbuterol HCl (Xopenex) 1.25 mg NEB Q2H PRN PRN Reason: Shortness of Breath Levothyroxine Sodium (Levothyroxine) 125 mcg PO ACBREAKFAST [facility] [place] Last Admin: 08/17/19 06:31 Dose: Not Given Levothyroxine Sodium (Levothyroxine) 125 mcg PO DAILY [facility] [place] Losartan Potassium (Cozaar) 25 mg PO DAILY [facility] [place] Metoprolol Succinate (Toprol Xl) 100 mg PO DAILY [facility] [place] Last Admin: 08/17/19 08:27 Dose: 100 mg Non-Formulary Medication (Cyclobenzaprine [Flexeril]) 5 mg PO TID PRN PRN Reason: Muscle Spasm Ondansetron HCl (Zofran) 4 mg IVPUSH Q8H PRN PRN Reason: Nausea Last Admin: 08/15/19 20:42 Dose: 4 mg Ondansetron HCl (Zofran Odt) 4 mg PO Q6H PRN PRN Reason: Nausea/Vomiting Pantoprazole Sodium (Protonix) 40 mg PO DAILY [facility] [place] Last Admin: 08/17/19 08:29 Dose: 40 mg Phytonadione (Vitamin K) 100 mcg PO DAILY [facility] [place] Last Admin: 08/17/19 08:27 Dose: 100 mcg Phytonadione (Aquamephyton) 1 mg PO ONETIME ONE Stop: 08/16/19 10:00 Last Admin: 08/16/19 10:36 Dose: 1 mg Sitagliptin Phosphate (Januvia) 100 mg PO DAILY [facility] [place] Last Admin: 08/17/19 08:29 Dose: 100 mg Warfarin Sodium (Coumadin) 5 mg PO DAILY [facility] [place]
== END 2019-08-17 13:15 | disposition home or self-care (01) | DRG 392 ==
LOC: VM.ED 16:21 → OBSVTOIN 18:09 → VM.MS 18:09
PROVIDERS: ADMIT Internal Medicine; ATTEND Family Medicine
DX: R19.7 Diarrhea, unspecified (principal); I50.22 Chronic systolic (congestive) heart failure; R79.1 Abnormal coagulation profile; I48.0 Paroxysmal atrial fibrillation; I25.10 Atherosclerotic heart disease of native coronary artery without angina pectoris; J44.9 Chronic obstructive pulmonary disease, unspecified; E11.9 Type 2 diabetes mellitus without complications; E03.9 Hypothyroidism, unspecified; D50.9 Iron deficiency anemia, unspecified; R03.1 Nonspecific low blood-pressure reading; I65.23 Occlusion and stenosis of bilateral carotid arteries; I11.0 Hypertensive heart disease with heart failure; N28.9 Disorder of kidney and ureter, unspecified; Z79.899 Other long term (current) drug therapy; Z79.4 Long term (current) use of insulin; Z88.1 Allergy status to other antibiotic agents; Z79.82 Long term (current) use of aspirin; I25.2 Old myocardial infarction; Z79.01 Long term (current) use of anticoagulants; Z87.891 Personal history of nicotine dependence; Z95.5 Presence of coronary angioplasty implant and graft; Z95.2 Presence of prosthetic heart valve; Z98.890 Other specified postprocedural states
CPT/HCPCS: 36415; 71045; 74019; 80048; 80053; 81001; 82962; 83036; 83605; 83735; 83880; 84443; 85025; 85610; 85652; 86140; 87040; 87045; 87046; 87493; 96360; 99285-25; A9270-GY; G0328; J0696; J2405; J3475; J7030

== ENCOUNTER 2019-11-17 13:59 | Emergency (ER) | payer MEDICAID ==
[2019-11-17] MEDS ORDERED: Sodium Chloride 0.9% 10 ML Syringe FLUSH PRN (14:17)
[2019-11-17] MEDS ORDERED: Aspirin 81 MG Tab.Chew PO ONE (14:19)
[2019-11-17 15:20] LABS: CHLORIDE,CL 104 mmol/L (98-107); SODIUM,NA 141 mmol/L (136-145)
[2019-11-17 15:22] LABS: ANION GAP 15.3 mmol/L (10-20)
--- NOTE | 2019-11-17 15:28 | CR ---
[id number] RAD/RAD Chest PA or AP 1V EXAM: FRONTAL CHEST INDICATION: CHEST PAIN. COMPARISON: August 15, 2019. DISCUSSION: Cardiomegaly without evidence of congestive heart failure. Scarring left lung base. No infiltrates are identified. IMPRESSION: 1. No acute findings. Agustin Issa MD 11/17/19 1497 Thank you for allowing us to participate in the care of your patient.
--- NOTE | 2019-11-17 15:51 | EDM.PDOC ---
ED HPI GENERAL MEDICAL PROBLEM - General Stated Complaint: CHEST PAIN Time Seen by Provider: 11/17/19 14:00 Source of Information: Reports: Patient History Limitations: Reports: No Limitations - History of Present Illness INITIAL COMMENTS - FREE TEXT/NARRATIVE: Pt. presents to ER with complaints of L sided anterior chest pain. He states that the discomfort is sharp in nature and worse with palpation. Denies any substernal chest discomfort. No fever or chills. No cough or chest congestion. Pt. has a history of CAD and has several stents. He states that there is no radiation into the jaw, arms, neck or back. He describes the discomfort as a sharp pain. Pt. states that he was involved in a verbal altercation earlier today with his Mother who he lives with. Denies any injury. No fever or chills. No hemoptysis. He is currently anticoagulated with coumadin. Onset: Today Onset Date: 11/17/19 Location: Reports: Chest Quality: Reports: Sharp, Stabbing Severity: Severe - Related Data Allergies Allergy/AdvReac Type Severity Reaction Status Date / Time azithromycin Allergy Mild Liver Verified 08/15/19 17:17 Problems empagliflozin AdvReac Mild Other Verified 08/15/19 17:17 [From Jardiance] Home Meds: Home Meds Ferrous Sulfate 325 mg PO DAILY 02/15/15 [History] Nitroglycerin [Nitrostat] 0.4 mg SL Q5M PRN 02/15/15 [History] metFORMIN [Glucophage] 1,000 mg PO BIDMEALS 02/15/15 [History] Albuterol Sulfate [Proair Hfa] 1 - 2 inh IH Q4HR PRN 03/27/17 [History] Cyclobenzaprine [Flexeril] 5 mg PO TID PRN 03/27/17 [History] Isosorbide Mononitrate [Imdur] 30 mg PO DAILY 03/27/17 [History] Losartan [Cozaar] 25 mg PO DAILY 03/27/17 [History] Pantoprazole Sodium [Protonix] 40 mg PO DAILY 03/27/17 [History] SitaGLIPtin [Januvia] 100 mg PO DAILY 01/31/19 [History] Warfarin Sodium [Coumadin] 5 mg PO ASDIRECTED 07/15/19 [History] Diphenoxylate HCl/Atropine [Lomotil] 1 tab PO QID PRN 08/15/19 [History] Glycopyrrolate/Formoterol Fum [Bevespi Aerosphere Inhaler] 2 puff IH BID [History] Rosuvastatin Calcium [Crestor] 40 mg PO DAILY 08/15/19 [History] Nicotine [Nicotine Patch] 21 mg TOP DAILY 08/16/19 [History] Levothyroxine 125 mcg PO ACBREAKFAST tablet 08/17/19 [Rx] Aspirin [Adult Low Dose Aspirin EC] 81 mg PO DAILY 08/25/19 [History] Furosemide 40 mg PO DAILY 08/25/19 [History] Metoprolol Succinate [Toprol XL 100mg] 100 mg PO DAILY 08/25/19 [History] Past Medical History HEENT History: Reports: Otitis Media Cardiovascular History: Reports: Afib, CAD, Heart Failure, Heart Valve Replacement, Hypertension, [place], Stents, Other (See Below) Other Cardiovascular History: hx of cardiac arrest Respiratory History: Reports: Intubation, Previous, Other (See Below) Other Respiratory History: chronic lung disease. Respiratory failure. hypoxia. oxygen dependent. smoker Endocrine/Metabolic History: Reports: Diabetes, Type II, Hypothyroidism, Obesity /BMI 30+ Hematologic History: Reports: Anemia - Infectious Disease History Infectious Disease History: Reports: Other (See Below) - Past Surgical History Cardiovascular Surgical History: Reports: Coronary Artery Stent, Valve Replacement Social & Family History - Family History Family Medical History: Noncontributory - Caffeine Use Caffeine Use: Reports: Coffee - Sexual History Sexual History: Reports: None - Living Situation & Occupation Living situation: Reports: Single, with Family Occupation: Unemployed ED ROS GENERAL - Review of Systems Review Of Systems: See Below Constitutional: Reports: No Symptoms HEENT: Reports: No Symptoms Respiratory: Reports: No Symptoms Cardiovascular: Reports: Chest Pain Endocrine: Reports: No Symptoms GI/Abdominal: Reports: No Symptoms : Reports: No Symptoms Musculoskeletal: Reports: No Symptoms Skin: Reports: No Symptoms Neurological: Reports: No Symptoms Psychiatric: Reports: No Symptoms Hematologic/Lymphatic: Reports: No Symptoms Immunologic: Reports: No Symptoms ED EXAM, GENERAL - Physical Exam Exam: See Below Exam Limited By: No Limitations General Appearance: Alert, WD/WN, No Apparent Distress Throat/Mouth: Normal Inspection, Normal Lips, Normal Teeth, Normal Gums, Normal Oropharynx, Normal Voice, No Airway Compromise Head: Atraumatic, Normocephalic Neck: Normal Inspection, Supple, Non-Tender, Full Range of Motion Respiratory/Chest: No Respiratory Distress, Lungs Clear, Normal Breath Sounds, No Accessory Muscle Use, Other (L anterior chest wall tenderness) Cardiovascular: Normal Peripheral Pulses, Regular Rate, Rhythm, No Edema, No Gallop, No JVD, No Murmur, No Rub Peripheral Pulses: 4+: Radial (L) GI/Abdominal: Normal Bowel Sounds, Soft, Non-Tender, No Organomegaly, No Distention, No Abnormal Bruit, No Mass, Pelvis Stable (Male) Exam: Deferred Rectal (Males) Exam: Deferred Back Exam: Normal Inspection, Full Range of Motion Extremities: Normal Inspection, Normal Range of Motion, Non-Tender, No Pedal Edema, Normal Capillary Refill Neurological: Alert, Oriented, CN II-XII Intact, Normal Cognition, Normal Gait, Normal Reflexes, No Motor/Sensory Deficits Psychiatric: Normal Affect, Normal Mood Skin Exam: Warm, Dry, Intact, Normal Color, No Rash Lymphatic: No Adenopathy Course - Orders/Labs/Meds Orders: Active Orders 24 hr Category Date Time Status EKG Documentation Completion [RC] STAT Care 11/17/19 14:18 Active Sodium Chloride 0.9% [Saline Flush] Med 11/17/19 14:17 Active 10 ml FLUSH ASDIRECTED PRN Peripheral IV Insertion Adult [OM.PC] Routine Oth 11/17/19 14:19 Ordered Medication Orders Sodium Chloride (Saline Flush) 10 ml FLUSH ASDIRECTED PRN PRN Reason: Keep Vein Open Labs: Laboratory Tests 11/17/19 11/17/19 11/17/19 Range/Units 14:40 14:40 14:40 WBC 9.0 (4.0-10.0) x10^3/uL RBC 4.43 L (4.5-6.0) x10^6/uL Hgb 12.0 L (14.0-18.0) g/dL Hct 37.1 L (40.0-52.0) % MCV 83.7 (78.0-93.0) fL MCH 27.1 (26.0-32.0) pg MCHC 32.3 (32.0-36.0) g/dL RDW Coeff of Prashant 15.5 H (10.0-15.0) % Plt Count 219 (130-400) x10^3/uL Neut % (Auto) 60.9 (50.0-80.0) % Lymph % (Auto) 26.5 (25.0-50.0) % Mckean % (Auto) 8.1 (2.0-11.0) % Eos % (Auto) 4.2 H (0.0-4.0) % Baso % (Auto) 0.3 (0.2-1.2) % PT 16.0 H D (10.0-12.8) SEC INR 1.4 L (2.0-3.5) D-Dimer, Quantitative 0.55 (<=0.58) mg/LFEU Sodium (136-145) mmol/L Potassium (3.5-5.1) mmol/L Chloride (98-107) mmol/L Carbon Dioxide (21-32) mmol/L Anion Gap (10-20) mmol/L BUN (7-18) mg/dL Creatinine (0.70-1.30) mg/dL Est Cr Clr Drug Dosing Estimated GFR (MDRD) Glucose (74-106) mg/dL Calcium (8.5-10.1) mg/dL Corrected Calcium (8.5-10.1) mg/dL Magnesium (1.8-2.4) mg/dL Total Bilirubin (0.2-1.0) mg/dL AST (15-37) U/L ALT (16-63) U/L Alkaline Phosphatase (46-116) U/L Troponin I (<=0.056) ng/mL C-Reactive Protein (<=0.9) mg/dL NT-Pro-B Natriuret Pep (<=125) pg/mL Total Protein (6.4-8.2) g/dL Albumin (3.4-5.0) g/dL Globulin Albumin/Globulin Ratio TSH, Ultra Sensitive (0.358-3.74) uIU/mL 11/17/19 Range/Units 14:40 WBC (4.0-10.0) x10^3/uL RBC (4.5-6.0) x10^6/uL Hgb (14.0-18.0) g/dL Hct (40.0-52.0) % MCV (78.0-93.0) fL MCH (26.0-32.0) pg MCHC (32.0-36.0) g/dL RDW Coeff of Prashant (10.0-15.0) % Plt Count (130-400) x10^3/uL Neut % (Auto) (50.0-80.0) % Lymph % (Auto) (25.0-50.0) % Mckean % (Auto) (2.0-11.0) % Eos % (Auto) (0.0-4.0) % Baso % (Auto) (0.2-1.2) % PT (10.0-12.8) SEC INR (2.0-3.5) D-Dimer, Quantitative (<=0.58) mg/LFEU Sodium 141 (136-145) mmol/L Potassium 4.3 (3.5-5.1) mmol/L Chloride 104 (98-107) mmol/L Carbon Dioxide 26 (21-32) mmol/L Anion Gap 15.3 (10-20) mmol/L BUN 25 H (7-18) mg/dL Creatinine 1.6 H (0.70-1.30) mg/dL Est Cr Clr Drug Dosing TNP Estimated GFR (MDRD) 45 Glucose 135 H (74-106) mg/dL Calcium 8.4 L (8.5-10.1) mg/dL Corrected Calcium 9.04 (8.5-10.1) mg/dL Magnesium 1.6 L (1.8-2.4) mg/dL Total Bilirubin 0.4 (0.2-1.0) mg/dL AST 25 (15-37) U/L ALT 38 (16-63) U/L Alkaline Phosphatase 134 H (46-116) U/L Troponin I < 0.017 (<=0.056) ng/mL C-Reactive Protein 1.3 H (<=0.9) mg/dL NT-Pro-B Natriuret Pep 900 H (<=125) pg/mL Total Protein 7.9 (6.4-8.2) g/dL Albumin 3.2 L (3.4-5.0) g/dL Globulin 4.7 Albumin/Globulin Ratio 0.68 TSH, Ultra Sensitive 2.408 (0.358-3.74) uIU/mL Meds: Medications Generic Name Dose Route Start Last Admin Trade Name Freq PRN Reason Stop Dose Admin Sodium Chloride 10 ml 11/17/19 14:17 Saline Flush FLUSH ASDIRECTED PRN Keep Vein Open Discontinued Medications Generic Name Dose Route Start Last Admin Trade Name Fresophy PRN Reason Stop Dose Admin Aspirin 324 mg 11/17/19 14:19 11/17/19 15:40 Aspirin PO 11/17/19 14:20 Not Given ONETIME ONE Departure - Departure Time of Disposition: 15:30 Disposition: Home, Self-Care 01 Clinical Impression: Atypical chest pain - Discharge Information Instructions: Nonspecific Chest Pain, [id number] Referrals: Jimmy Dominguez MD [Primary Care Provider] - Additional Instructions: Home to rest Return to ER if worsening discomfort, shortness of breath, racing heart, or other worrisome signs/symptoms Recheck in clinic in 7-10 days Sepsis Event Note - Focused Exam Date Exam was Performed: 11/17/19 Time Exam was Performed: 16:21 - My Orders Last 24 Hours: My Active Orders 11/17/19 14:17 Sodium Chloride 0.9% [Saline Flush] 10 ml FLUSH ASDIRECTED PRN 11/17/19 14:18 EKG Documentation Completion [RC] STAT 11/17/19 14:19 Peripheral IV Insertion Adult [OM.PC] Routine - Assessment/Plan Last 24 Hours: My Active Orders 11/17/19 14:17 Sodium Chloride 0.9% [Saline Flush] 10 ml FLUSH ASDIRECTED PRN 11/17/19 14:18 EKG Documentation Completion [RC] STAT 11/17/19 14:19 Peripheral IV Insertion Adult [OM.PC] Routine Plan: Home to rest Return to ER if worsening discomfort, shortness of breath, racing heart, or other worrisome signs/symptoms Recheck in clinic in 7-10 days
[2019-11-17 20:35] VITALS: BP 128/71; PULSE 69
== END 2019-11-17 15:59 | disposition home or self-care (01) ==
LOC: VM.ED 13:59
DX: R07.89 Other chest pain (principal); I48.91 Unspecified atrial fibrillation; I11.0 Hypertensive heart disease with heart failure; I50.9 Heart failure, unspecified; I25.10 Atherosclerotic heart disease of native coronary artery without angina pectoris; E11.9 Type 2 diabetes mellitus without complications; E03.9 Hypothyroidism, unspecified; D64.9 Anemia, unspecified; E66.9 Obesity, unspecified; Z95.5 Presence of coronary angioplasty implant and graft; Z79.899 Other long term (current) drug therapy; Z79.84 Long term (current) use of oral hypoglycemic drugs; Z79.82 Long term (current) use of aspirin; Z79.01 Long term (current) use of anticoagulants
CPT/HCPCS: 36415; 71045; 80053; 83735; 83880; 84443; 84484; 85025; 85379; 85610; 86140; 93005; 99285-25

== ENCOUNTER 2020-01-28 12:22 | Emergency (ER) | payer MEDICAID ==
[2020-01-28 12:35] VITALS: BP 143/94; PULSE 70
--- NOTE | 2020-01-28 12:57 | EDM.PDOC ---
ED HPI GENERAL MEDICAL PROBLEM - General Chief Complaint: ENT Problem Stated Complaint: SEVERE TOOTHACHE Time Seen by Provider: 01/28/20 12:45 Source of Information: Reports: Patient History Limitations: Reports: No Limitations - History of Present Illness INITIAL COMMENTS - FREE TEXT/NARRATIVE: Patient comes into the emergency department with dental pain. Patient has a longstanding history of dental pain and was told many years ago that he should have a root canal. Patient has not been able to seek dental care due to finances. This last week he ended up eating a Snickers bar and noticed a piece of his tooth dangling and he ended up pulling it out had no pain or discomfort at the time frame. He started noticing yesterday increased dental discomfort on that upper right side of his mouth. It progressed throughout the night. Ibuprofen was working however today it is no longer working and he states that the discomfort is more significant. Patient denies any swelling of the face abnormal discharge around the tooth or foul-smelling odor. Patient denies any chest pain, shortness of breath, dizziness, lightheadedness, GI upset, or peripheral edema. Patient states he is relatively healthy other than his dental concerns. Onset: Gradual Duration: Constant Location: Reports: Face Quality: Reports: Dull, Throbbing Severity: Moderate Improves with: Reports: None Worsens with: Reports: None Associated Symptoms: Reports: No Other Symptoms Treatments MANAGER INVESTMENT: Reports: Acetaminophen, NSAIDS Oral/Mouth Pain Score (Numeric/FACES): 10 - Related Data Allergies Allergy/AdvReac Type Severity Reaction Status Date / Time azithromycin Allergy Mild Liver Verified 01/28/20 12:32 Problems empagliflozin AdvReac Mild Other Verified 01/28/20 12:32 [From Jardiance] Home Meds: Home Meds Ferrous Sulfate 325 mg PO DAILY 02/15/15 [History] Nitroglycerin [Nitrostat] 0.4 mg SL Q5M PRN 02/15/15 [History] metFORMIN [Glucophage] 1,000 mg PO BIDMEALS 02/15/15 [History] Albuterol Sulfate [Proair Hfa] 1 - 2 inh IH Q4HR PRN 03/27/17 [History] Cyclobenzaprine [Flexeril] 5 mg PO TID PRN 03/27/17 [History] Isosorbide Mononitrate [Imdur] 30 mg PO DAILY 03/27/17 [History] Losartan [Cozaar] 25 mg PO DAILY 03/27/17 [History] Pantoprazole Sodium [Protonix] 40 mg PO DAILY 03/27/17 [History] SitaGLIPtin [Januvia] 100 mg PO DAILY 01/31/19 [History] Warfarin Sodium [Coumadin] 5 mg PO ASDIRECTED 07/15/19 [History] Diphenoxylate HCl/Atropine [Lomotil] 1 tab PO QID PRN 08/15/19 [History] Glycopyrrolate/Formoterol Fum [Bevespi Aerosphere Inhaler] 2 puff IH BID [History] Rosuvastatin Calcium [Crestor] 40 mg PO DAILY 08/15/19 [History] Nicotine [Nicotine Patch] 21 mg TOP DAILY 08/16/19 [History] Levothyroxine 125 mcg PO ACBREAKFAST tablet 08/17/19 [Rx] Aspirin [Adult Low Dose Aspirin EC] 81 mg PO DAILY 08/25/19 [History] Metoprolol Succinate [Toprol XL 100mg] 100 mg PO DAILY 08/25/19 [History] Past Medical History HEENT History: Reports: Otitis Media Cardiovascular History: Reports: Afib, CAD, Heart Failure, Heart Valve Replacement, Hypertension, [place], Stents, Other (See Below) Other Cardiovascular History: hx of cardiac arrest Respiratory History: Reports: Intubation, Previous, Other (See Below) Other Respiratory History: chronic lung disease. Respiratory failure. hypoxia. oxygen dependent. smoker Endocrine/Metabolic History: Reports: Diabetes, Type II, Hypothyroidism, Obesity /BMI 30+ Hematologic History: Reports: Anemia - Infectious Disease History Infectious Disease History: Reports: Other (See Below) - Past Surgical History Cardiovascular Surgical History: Reports: Coronary Artery Stent, Valve Replacement Social & Family History - Family History Family Medical History: Noncontributory - Tobacco Use Smoking Status *Q: Former Smoker Used Tobacco, but Quit: Yes Month/Year Tobacco Last Used: 12/2019 - Caffeine Use Caffeine Use: Reports: Coffee - Recreational Drug Use Recreational Drug Use: No - Sexual History Sexual History: Reports: None - Living Situation & Occupation Living situation: Reports: Single, with Family Occupation: Unemployed ED ROS GENERAL - Review of Systems Review Of Systems: See Below Constitutional: Reports: No Symptoms HEENT: Reports: No Symptoms Respiratory: Reports: No Symptoms Cardiovascular: Reports: No Symptoms Endocrine: Reports: No Symptoms GI/Abdominal: Reports: No Symptoms : Reports: No Symptoms Musculoskeletal: Reports: No Symptoms Skin: Reports: No Symptoms Neurological: Reports: No Symptoms Psychiatric: Reports: No Symptoms Hematologic/Lymphatic: Reports: No Symptoms Immunologic: Reports: No Symptoms ED EXAM, GENERAL - Physical Exam Exam: See Below Exam Limited By: No Limitations General Appearance: Alert, WD/WN, No Apparent Distress Eye Exam: Bilateral Eye: EOMI, PERRL Throat/Mouth: Other (dental decay, many missing teeth. upper right gum tissue swelling with broken/decay tooth with black around base of tooth. no drainage noted ) Head: Atraumatic, Normocephalic Neck: Normal Inspection, Supple, Non-Tender, Full Range of Motion Respiratory/Chest: No Respiratory Distress, Lungs Clear, Normal Breath Sounds, No Accessory Muscle Use, Chest Non-Tender Cardiovascular: Normal Peripheral Pulses, Regular Rate, Rhythm Back Exam: Normal Inspection, Full Range of Motion Extremities: Normal Inspection, Normal Range of Motion, Non-Tender, No Pedal Edema, Normal Capillary Refill Neurological: Alert, Oriented, Normal Cognition, Normal Gait Psychiatric: Normal Affect, Normal Mood Skin Exam: Warm, Dry, Intact Course - Vital Signs Last Recorded V/S: Last Vital Signs Temp 36.2 C 01/28/20 12:33 Pulse 70 01/28/20 12:33 Resp 16 01/28/20 12:33 BP 143/94 H 01/28/20 12:33 Pulse Ox 94 L 01/28/20 12:33 Departure - Departure Time of Disposition: 12:55 Disposition: Home, Self-Care 01 Condition: Good Clinical Impression: Tooth infection - Discharge Information *PRESCRIPTION DRUG MONITORING PROGRAM REVIEWED*: Not Applicable *COPY OF PRESCRIPTION DRUG MONITORING REPORT IN PATIENT MILENA: Not Applicable Instructions: Dental Abscess, [id number], Clindamycin capsules, Probiotics Referrals: Jimmy Dominguez MD [Primary Care Provider] - Forms: ED Department Discharge Additional Instructions: 1. rest 2. increase your water intake 3. Take all antibiotics as prescribed even if feeling better 4. Take a probiotic while on antibiotics to help promote healthy GI motility 5. Activity and diet as tolerated 6. Can use Ibuprofen or Tylenol for any fever or discomfort 7. Follow up with your PCP or return if symptoms progress or worsen 8. Education provided to you regarding your illness, probiotics, antibiotic prescribed 9. Call with any questions or concerns Sepsis Event Note - Evaluation Sepsis Screening Result: No Definite Risk - Focused Exam Vital Signs: Vital Signs Temp Pulse Resp BP Pulse Ox 01/28/20 12:33 36.2 C 70 16 143/94 H 94 L Date Exam was Performed: 01/28/20 Time Exam was Performed: 13:40 - Assessment/Plan Assessment:: 1. dental pain 2. tooth abscess Plan: 1. Antibiotic clindamycin 300mg tid x 5 days called into the pharmacy. 2. Patient encouraged to follow up with dentist for tooth extraction 3. Probiotic education provided to the patient 4. Patient and nursing staff was updated regarding the plan of care 5. Education provided the patient regarding activity, diet, rest, over-the- counter medication modalities, and follow-up care was provided 6. Patient and family are agreeable to the above plan of care 7. All questions and concerns were addressed with the patient and family prior to discharge
== END 2020-01-28 12:59 | disposition home or self-care (01) ==
LOC: VM.ED 12:22
DX: K04.7 Periapical abscess without sinus (principal); K02.9 Dental caries, unspecified; I11.0 Hypertensive heart disease with heart failure; I50.9 Heart failure, unspecified; E11.9 Type 2 diabetes mellitus without complications; I25.10 Atherosclerotic heart disease of native coronary artery without angina pectoris; I48.91 Unspecified atrial fibrillation; I25.2 Old myocardial infarction; E03.9 Hypothyroidism, unspecified; E66.9 Obesity, unspecified; Z68.34 Body mass index [BMI] 34.0-34.9, adult; Z95.5 Presence of coronary angioplasty implant and graft; Z87.891 Personal history of nicotine dependence; Z88.1 Allergy status to other antibiotic agents; Z79.82 Long term (current) use of aspirin; Z79.84 Long term (current) use of oral hypoglycemic drugs; Z79.899 Other long term (current) drug therapy
CPT/HCPCS: 99282

== ENCOUNTER 2020-02-05 23:20 | Emergency (ER) | payer MEDICAID ==
[2020-02-05] MEDS ORDERED: Sodium Chloride 0.9% 10 ML Syringe FLUSH PRN (23:29)
--- NOTE | 2020-02-06 00:10 | EDM.PDOC ---
ED HPI GENERAL MEDICAL PROBLEM - General Chief Complaint: Respiratory Problem Stated Complaint: Dental pain, shortness of breath Time Seen by Provider: 02/05/20 23:20 Source of Information: Reports: Patient History Limitations: Reports: No Limitations - History of Present Illness INITIAL COMMENTS - FREE TEXT/NARRATIVE: Pt. presents to ER with complaints of acute onset shortness of breath, orthopnea , and dyspnea on exertion just prior to arriving in ER. Pt. states that he has been having dental pain for approx. one week and was started on an antibiotic. He states that he was having some increased discomfort in his teeth/jaw tonight and today as well. Denies any fever or chills. Denies any substernal chest discomfort. No neck or back pain. He states that the dental pain is located in the R upper jaw area. Denies any lower jaw pain, and states that the discomfort is located only on the R side. Pt. denies any cough or chest congestion. No fever or chills. Denies any recent travel. Denies any ill contacts. Pt. states that he previously had been on lasix but this was discontinued recently due to electrolyte depletion. He is currently anticoagulated with coumadin. Has a history of atrial fib as well as severe CAD with 6 stents. His medical record is voluminous, but it appears his last cath intervention was at which time he had a drug eluting stent placed in his mid RCA. Echo at that time showed grade II LV dysfunction and an EF of 65%. Onset: Today Onset Date: 02/05/20 Location: Reports: Generalized Severity: Moderate Associated Symptoms: Reports: Shortness of Breath. Denies: Chest Pain, Nausea/ Vomiting - Related Data Allergies Allergy/AdvReac Type Severity Reaction Status Date / Time azithromycin Allergy Mild Liver Verified 01/28/20 12:32 Problems empagliflozin AdvReac Mild Other Verified 01/28/20 12:32 [From Jardiance] Home Meds: Home Meds Ferrous Sulfate 325 mg PO DAILY 02/15/15 [History] Nitroglycerin [Nitrostat] 0.4 mg SL Q5M PRN 02/15/15 [History] metFORMIN [Glucophage] 1,000 mg PO BIDMEALS 02/15/15 [History] Albuterol Sulfate [Proair Hfa] 1 - 2 inh IH Q4HR PRN 03/27/17 [History] Cyclobenzaprine [Flexeril] 5 mg PO TID PRN 03/27/17 [History] Isosorbide Mononitrate [Imdur] 30 mg PO DAILY 03/27/17 [History] Losartan [Cozaar] 25 mg PO DAILY 03/27/17 [History] Pantoprazole Sodium [Protonix] 40 mg PO DAILY 03/27/17 [History] SitaGLIPtin [Januvia] 100 mg PO DAILY 01/31/19 [History] Warfarin Sodium [Coumadin] 5 mg PO ASDIRECTED 07/15/19 [History] Diphenoxylate HCl/Atropine [Lomotil] 1 tab PO QID PRN 08/15/19 [History] Glycopyrrolate/Formoterol Fum [Bevespi Aerosphere Inhaler] 2 puff IH BID [History] Rosuvastatin Calcium [Crestor] 40 mg PO DAILY 08/15/19 [History] Nicotine [Nicotine Patch] 21 mg TOP DAILY 08/16/19 [History] Levothyroxine 125 mcg PO ACBREAKFAST tablet 08/17/19 [Rx] Aspirin [Adult Low Dose Aspirin EC] 81 mg PO DAILY 08/25/19 [History] Metoprolol Succinate [Toprol XL 100mg] 100 mg PO DAILY 08/25/19 [History] Past Medical History HEENT History: Reports: Otitis Media Cardiovascular History: Reports: Afib, CAD, Heart Failure, Heart Valve Replacement, Hypertension, [place], Stents, Other (See Below) Other Cardiovascular History: hx of cardiac arrest Respiratory History: Reports: Intubation, Previous, Other (See Below) Other Respiratory History: chronic lung disease. Respiratory failure. hypoxia. oxygen dependent. smoker Endocrine/Metabolic History: Reports: Diabetes, Type II, Hypothyroidism, Obesity /BMI 30+ Hematologic History: Reports: Anemia - Infectious Disease History Infectious Disease History: Reports: Other (See Below) - Past Surgical History Cardiovascular Surgical History: Reports: Coronary Artery Stent, Valve Replacement Social & Family History - Family History Family Medical History: Noncontributory - Caffeine Use Caffeine Use: Reports: Coffee - Sexual History Sexual History: Reports: None - Living Situation & Occupation Living situation: Reports: Single, with Family Occupation: Unemployed ED ROS GENERAL - Review of Systems Review Of Systems: See Below Constitutional: Reports: No Symptoms HEENT: Reports: No Symptoms Respiratory: Reports: Shortness of Breath Cardiovascular: Reports: Dyspnea on Exertion, Orthopnea Endocrine: Reports: No Symptoms GI/Abdominal: Reports: No Symptoms : Reports: No Symptoms Musculoskeletal: Reports: No Symptoms Skin: Reports: No Symptoms Neurological: Reports: No Symptoms Psychiatric: Reports: No Symptoms Hematologic/Lymphatic: Reports: No Symptoms Immunologic: Reports: No Symptoms ED EXAM, GENERAL - Physical Exam Exam: See Below Exam Limited By: No Limitations General Appearance: Alert, WD/WN, No Apparent Distress Nose: No Blood Throat/Mouth: Normal Inspection, Normal Lips, Other (teeth are in poor repair, several are fractured at gum line.) Head: Atraumatic, Normocephalic Neck: Normal Inspection, Supple, Non-Tender, Full Range of Motion Respiratory/Chest: No Respiratory Distress, No Accessory Muscle Use, Chest Non- Tender, Decreased Breath Sounds, Crackles Cardiovascular: Normal Peripheral Pulses, Regular Rate, Rhythm, No Gallop Peripheral Pulses: 4+: Radial (R) GI/Abdominal: Normal Bowel Sounds, Soft, Non-Tender, No Mass, Pelvis Stable, Distended (Male) Exam: Deferred Rectal (Males) Exam: Deferred Back Exam: Normal Inspection, Full Range of Motion Extremities: Normal Inspection, Normal Range of Motion, Non-Tender, No Pedal Edema, Normal Capillary Refill Neurological: Alert, Oriented, CN II-XII Intact, Normal Cognition, Normal Reflexes, No Motor/Sensory Deficits Psychiatric: Normal Affect, Normal Mood Skin Exam: Warm, Dry, Pallor Lymphatic: No Adenopathy EKG INTERPRETATION Rhythm: NSR QRS: RBBB ST-T: Depressed Course - Orders/Labs/Meds Orders: Active Orders 24 hr Category Date Time Status EKG Documentation Completion [RC] STAT Care 02/05/20 23:29 Active Chest 1V Frontal [CR] Stat Exams 02/05/20 23:29 Taken CBC WITH AUTO DIFF [HEME] Stat Lab 02/05/20 23:29 Ordered COMPREHENSIVE METABOLIC PN,CMP [CHEM] Stat Lab 02/05/20 23:29 Ordered CRP [C-REACTIVE PROTEIN] [CHEM] Stat Lab 02/05/20 23:30 Ordered CULTURE BLOOD [BC] Stat Lab 02/05/20 23:30 Ordered CULTURE BLOOD [BC] Stat Lab 02/05/20 23:30 Ordered D Dimer [D-DIMER QUANTITATIVE] [COAG] Stat Lab 02/05/20 23:32 Ordered INR,PT,PROTHROMBIN TIME [COAG] Stat Lab 02/05/20 23:29 Ordered LACTIC ACID [CHEM] Stat Lab 02/05/20 23:29 Ordered MAGNESIUM [CHEM] Stat Lab 02/05/20 23:30 Ordered PRO B-TYPE NATRIUR PEPT,BNPPRO [CHEM] Stat Lab 02/05/20 23:30 Ordered TROPONIN I [CHEM] Stat Lab 02/05/20 23:29 Ordered Sodium Chloride 0.9% [Saline Flush] Med 02/05/20 23:29 Active 10 ml FLUSH ASDIRECTED PRN Blood Culture x2 Reflex Set [OM.PC] Stat Oth 02/05/20 23:30 Ordered Peripheral IV Insertion Adult [OM.PC] Routine Oth 02/05/20 23:30 Ordered Medication Orders Sodium Chloride (Saline Flush) 10 ml FLUSH ASDIRECTED PRN PRN Reason: Keep Vein Open Meds: Medications Generic Name Dose Route Start Last Admin Trade Name Freq PRN Reason Stop Dose Admin Sodium Chloride 10 ml 02/05/20 23:29 Saline Flush FLUSH ASDIRECTED PRN Keep Vein Open Discontinued Medications Generic Name Dose Route Start Last Admin Trade Name Freq PRN Reason Stop Dose Admin Furosemide 40 mg 02/06/20 00:19 Lasix IV 02/06/20 00:20 ONETIME ONE - Radiology Interpretation Free Text/Narrative:: Moderate CHF, cardiomegaly noted on chest x-ray Departure - Departure Time of Disposition: 00:50 Disposition: DC/Tfer to Acute Hospital 02 Clinical Impression: NSTEMI (non-ST elevated myocardial infarction), CHF (congestive heart failure) - Discharge Information Forms: ED Department Discharge Sepsis Event Note - Focused Exam Date Exam was Performed: 02/06/20 Time Exam was Performed: 00:21 - Problem List Review Problem List Initiated/Reviewed/Updated: Yes - My Orders Last 24 Hours: My Active Orders 02/05/20 23:29 EKG Documentation Completion [RC] STAT Chest 1V Frontal [CR] Stat CBC WITH AUTO DIFF [HEME] Stat COMPREHENSIVE METABOLIC PN,CMP [CHEM] Stat INR,PT,PROTHROMBIN TIME [COAG] Stat LACTIC ACID [CHEM] Stat TROPONIN I [CHEM] Stat Sodium Chloride 0.9% [Saline Flush] 10 ml FLUSH ASDIRECTED PRN 02/05/20 23:30 CRP [C-REACTIVE PROTEIN] [CHEM] Stat CULTURE BLOOD [BC] Stat CULTURE BLOOD [BC] Stat MAGNESIUM [CHEM] Stat PRO B-TYPE NATRIUR PEPT,BNPPRO [CHEM] Stat Blood Culture x2 Reflex Set [OM.PC] Stat Peripheral IV Insertion Adult [OM.PC] Routine 02/05/20 23:32 D Dimer [D-DIMER QUANTITATIVE] [COAG] Stat - Assessment/Plan Last 24 Hours: My Active Orders 02/05/20 23:29 EKG Documentation Completion [RC] STAT Chest 1V Frontal [CR] Stat CBC WITH AUTO DIFF [HEME] Stat COMPREHENSIVE METABOLIC PN,CMP [CHEM] Stat INR,PT,PROTHROMBIN TIME [COAG] Stat LACTIC ACID [CHEM] Stat TROPONIN I [CHEM] Stat Sodium Chloride 0.9% [Saline Flush] 10 ml FLUSH ASDIRECTED PRN 02/05/20 23:30 CRP [C-REACTIVE PROTEIN] [CHEM] Stat CULTURE BLOOD [BC] Stat CULTURE BLOOD [BC] Stat MAGNESIUM [CHEM] Stat PRO B-TYPE NATRIUR PEPT,BNPPRO [CHEM] Stat Blood Culture x2 Reflex Set [OM.PC] Stat Peripheral IV Insertion Adult [OM.PC] Routine 02/05/20 23:32 D Dimer [D-DIMER QUANTITATIVE] [COAG] Stat Plan: Pt. will be transferred to [facility]. Dr. Hester accepts the patient in transfer. Pt. is a code 1. Pt. was given lasix 40mg IV and reported significant improvement in dyspnea. He was maintaining O2 saturations in the mid 90s on O2 per [place] at 2L/min. He was given aspirin 324mg PO. His INR was theraputic and he was not heparinized. Pt. will be transported via [facility] ground ambulance. Discussed findings at length with patient. Family was notified.
[2020-02-06] MEDS ORDERED: Furosemide 40 MG/4 ML VIAL IV ONE (00:19)
[2020-02-06 01:01] VITALS: PULSE 79
[2020-02-06 01:03] LABS: ANION GAP 18.5 mmol/L (10-20)
[2020-02-06] MEDS ORDERED: Aspirin 81 MG Tab.Chew PO ONE (01:06)
[2020-02-06 01:39] VITALS: BP 113/72
--- NOTE | 2020-02-06 08:22 | CR ---
[id number] RAD/RAD Chest PA or AP 1V EXAM: SINGLE VIEW CHEST. INDICATION: SHORTNESS OF BREATH COMPARISON: CORRELATION IS MADE WITH NOVEMBER 17, 2019 FINDINGS: There is no pneumonia or edema There is minimal increased pulmonary vascularity The cardiac silhouette is enlarged The mediastinum is stable but prominent IMPRESSION: NO DEFINITE PNEUMONIA OR EDEMA. ABNORMAL PROMINENCE OF MEDIASTINUM CARDIOMEGALY PREVIOUS SURGICAL CHANGES Bang Marquez MD 02/06/20 0821 Thank you for allowing us to participate in the care of your patient.
== END 2020-02-06 02:15 | disposition short-term general hospital (02) ==
LOC: VM.ED 23:20
DX: I21.4 Non-ST elevation (NSTEMI) myocardial infarction (principal); I11.0 Hypertensive heart disease with heart failure; I50.9 Heart failure, unspecified; I48.91 Unspecified atrial fibrillation; I25.10 Atherosclerotic heart disease of native coronary artery without angina pectoris; E11.9 Type 2 diabetes mellitus without complications; E03.9 Hypothyroidism, unspecified; E66.9 Obesity, unspecified; Z68.34 Body mass index [BMI] 34.0-34.9, adult; Z79.84 Long term (current) use of oral hypoglycemic drugs; Z79.01 Long term (current) use of anticoagulants; Z79.82 Long term (current) use of aspirin; Z79.899 Other long term (current) drug therapy; Z88.1 Allergy status to other antibiotic agents
CPT/HCPCS: 36415; 71045; 80053; 83605; 83735; 83880; 84484; 85025; 85379; 85610; 86140; 87040; 93005; 96374; 99285; A9270; J1940

== ENCOUNTER 2020-04-16 20:55 | Emergency (ER) | payer MEDICAID ==
[2020-04-16] MEDS ORDERED: Aspirin 81 MG Tab.Chew PO ONE (21:15)
--- NOTE | 2020-04-16 21:33 | EDM.PDOC ---
ED HPI GENERAL MEDICAL PROBLEM - General Chief Complaint: Chest Pain Stated Complaint: CHEST PAIN Time Seen by Provider: 04/16/20 21:12 Source of Information: Reports: Patient History Limitations: Reports: No Limitations - History of Present Illness INITIAL COMMENTS - FREE TEXT/NARRATIVE: Patient reports chest pain that is midsternal in nature and radiates to bilateral sides of his jaw. He did take a baby asa and 1 nitroglycerin tablet prior to arrival. Extensive stent history with reportedly 7-8 stents per patient report. On arrival pain has subsided to a 2. Pain originated while repositioning in bed. No worse with movement, no worsening with breathing. Denies sweating, nausea, vomiting, diarrhea. No neurologic changes. Denies back pain, denies radiation of pain to the back, no abdominal pain. Did receive a stent in January 2020 and is still taking Brillinta, and Xarelto. 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, Nitroglycerin mid sternal chest Pain Score (Numeric/FACES): 4 - Related Data Allergies Allergy/AdvReac Type Severity Reaction Status Date / Time azithromycin Allergy Mild Liver Verified 04/16/20 21:50 Problems empagliflozin AdvReac Mild Other Verified 04/16/20 21:50 [From Jardiance] Home Meds: Home Meds Ferrous Sulfate 325 mg PO DAILY 02/15/15 [History] Nitroglycerin [Nitrostat] 0.4 mg SL Q5M PRN 02/15/15 [History] metFORMIN [Glucophage] 1,000 mg PO BIDMEALS 02/15/15 [History] Albuterol Sulfate [Proair Hfa] 1 - 2 inh IH Q4HR PRN 03/27/17 [History] Cyclobenzaprine [Flexeril] 5 mg PO TID PRN 03/27/17 [History] Isosorbide Mononitrate [Imdur] 30 mg PO DAILY 03/27/17 [History] Losartan [Cozaar] 25 mg PO DAILY 03/27/17 [History] Pantoprazole Sodium [Protonix] 40 mg PO DAILY 03/27/17 [History] SitaGLIPtin [Januvia] 100 mg PO DAILY 01/31/19 [History] Diphenoxylate HCl/Atropine [Lomotil] 1 tab PO QID PRN 08/15/19 [History] Glycopyrrolate/Formoterol Fum [Bevespi Aerosphere Inhaler] 2 puff IH BID 08/15/19 [History] Rosuvastatin Calcium [Crestor] 40 mg PO DAILY 08/15/19 [History] Levothyroxine 125 mcg PO ACBREAKFAST tablet 08/17/19 [Rx] Aspirin [Adult Low Dose Aspirin EC] 81 mg PO DAILY 08/25/19 [History] Metoprolol Succinate [Toprol XL 100mg] 100 mg PO DAILY 08/25/19 [History] Rivaroxaban [Xarelto] 20 mg PO DAILY 04/16/20 [History] Ticagrelor [Brilinta] 90 mg PO BID 04/16/20 [History] Past Medical History HEENT History: Reports: Otitis Media Cardiovascular History: Reports: Afib, CAD, Heart Failure, Heart Valve Replacement, Hypertension, PA, Stents, Other (See Below) Other Cardiovascular History: hx of cardiac arrest Respiratory History: Reports: Intubation, Previous, Other (See Below) Other Respiratory History: chronic lung disease. Respiratory failure. hypoxia. oxygen dependent. smoker Endocrine/Metabolic History: Reports: Diabetes, Type II, Hypothyroidism, Obesity/BMI 30+ Hematologic History: Reports: Anemia - Infectious Disease History Infectious Disease History: Reports: Other (See Below) - Past Surgical History Cardiovascular Surgical History: Reports: Coronary Artery Stent, Valve Replacement Social & Family History - Family History Family Medical History: Noncontributory - Caffeine Use Caffeine Use: Reports: Coffee - Sexual History Sexual History: Reports: None - Living Situation & Occupation Living situation: Reports: Single, with Family Occupation: Unemployed ED ROS GENERAL - Review of Systems Review Of Systems: See Below Constitutional: Reports: No Symptoms HEENT: Reports: No Symptoms, Other (bilateral neck pain) Respiratory: Reports: No Symptoms Cardiovascular: Reports: Chest Pain Endocrine: Reports: No Symptoms GI/Abdominal: Reports: No Symptoms : Reports: No Symptoms Musculoskeletal: Reports: No Symptoms Skin: Reports: No Symptoms Neurological: Reports: No Symptoms Psychiatric: Reports: No Symptoms Hematologic/Lymphatic: Reports: No Symptoms Immunologic: Reports: No Symptoms ED EXAM, GENERAL - Physical Exam Exam: See Below Exam Limited By: No Limitations General Appearance: Alert, WD/WN, No Apparent Distress Eye Exam: Bilateral Eye: EOMI, PERRL Ears: Normal TMs Nose: Normal Inspection, Normal Mucosa, No Blood Throat/Mouth: Normal Inspection, Normal Lips, Normal Teeth, Normal Gums, Normal Oropharynx, Normal Voice, No Airway Compromise Head: Atraumatic, Normocephalic Neck: Normal Inspection, Supple, Non-Tender, Full Range of Motion. No: Carotid Bruit Respiratory/Chest: No Respiratory Distress, Lungs Clear, Normal Breath Sounds, No Accessory Muscle Use, Chest Non-Tender Cardiovascular: Normal Peripheral Pulses, Regular Rate, Rhythm, No Edema, No Gallop, No JVD, No Murmur, No Rub Peripheral Pulses: 2+: Posterior Tibial (L), Posterior Tibial (R), Dorsalis Pedis (L), Dorsalis Pedis (R) GI/Abdominal: Normal Bowel Sounds, Soft, Non-Tender, No Organomegaly, No Distention, No Abnormal Bruit, No Mass Back Exam: Normal Inspection, Full Range of Motion, NT Extremities: Normal Inspection, Normal Range of Motion, Non-Tender, Normal Capillary Refill, No Pedal Edema Neurological: Alert, Oriented, CN II-XII Intact, Normal Cognition, Normal Gait, Normal Reflexes, No Motor/Sensory Deficits Psychiatric: Normal Affect, Normal Mood Skin Exam: Warm, Dry, Intact, Normal Color, No Rash Lymphatic: No Adenopathy Course - Vital Signs Last Recorded V/S: Last Vital Signs Temp 36.9 C 04/16/20 20:55 Pulse 70 04/16/20 22:10 Resp 16 04/16/20 22:10 BP 147/70 H 04/16/20 22:10 Pulse Ox 96 04/16/20 22:10 - Orders/Labs/Meds Orders: Active Orders 24 hr Category Date Time Status EKG Documentation Completion [RC] STAT Care 04/16/20 21:13 Active Chest 1V Frontal [CR] Stat Exams 04/16/20 21:15 Taken Labs: Laboratory Tests 04/16/20 04/16/20 Range/Units 21:29 21:29 WBC 10.1 H (4.0-10.0) x10^3/uL RBC 4.36 L (4.5-6.0) x10^6/uL Hgb 12.1 L (14.0-18.0) g/dL Hct 36.6 L (40.0-52.0) % MCV 83.9 (78.0-93.0) fL MCH 27.8 (26.0-32.0) pg MCHC 33.1 (32.0-36.0) g/dL RDW Coeff of Prashant 15.4 H (10.0-15.0) % Plt Count 210 (130-400) x10^3/uL Neut % (Auto) 65.7 (50.0-80.0) % Lymph % (Auto) 23.8 L (25.0-50.0) % [place] % (Auto) 7.5 (2.0-11.0) % Eos % (Auto) 2.8 (0.0-4.0) % Baso % (Auto) 0.2 (0.2-1.2) % Sodium 138 (136-145) mmol/L Potassium 3.9 (3.5-5.1) mmol/L Chloride 100 (98-107) mmol/L Carbon Dioxide 24 (21-32) mmol/L Anion Gap 17.9 (10-20) mmol/L BUN 17 (7-18) mg/dL Creatinine 2.0 H (0.70-1.30) mg/dL Est Cr Clr Drug Dosing 36.77 mL/min Estimated GFR (MDRD) 35 Glucose 157 H (74-106) mg/dL Calcium 9.0 (8.5-10.1) mg/dL Corrected Calcium 9.56 (8.5-10.1) mg/dL Total Bilirubin 0.4 (0.2-1.0) mg/dL AST 28 (15-37) U/L ALT 36 (16-63) U/L Alkaline Phosphatase 87 (46-116) U/L Creatine Kinase 31 L (39-308) U/L Troponin I < 0.017 (<=0.056) ng/mL C-Reactive Protein 1.1 H (<=0.9) mg/dL NT-Pro-B Natriuret Pep 1121 H (<=125) pg/mL Total Protein 7.8 (6.4-8.2) g/dL Albumin 3.3 L (3.4-5.0) g/dL Globulin 4.5 Albumin/Globulin Ratio 0.73 Meds: Medications Discontinued Medications Generic Name Dose Route Start Last Admin Trade Name Lucho PRN Reason Stop Dose Admin Aspirin 243 mg 04/16/20 21:15 04/16/20 21:15 Aspirin PO 04/16/20 21:16 243 mg ONETIME ONE Administration Departure - Departure Time of Disposition: 22:24 Disposition: Home, Self-Care 01 Condition: Good Clinical Impression: Unstable angina Instructions: Angina, [id number] Referrals: Jimmy Dominguez MD [Primary Care Provider] - Forms: ED Department Discharge Sepsis Event Note (ED) - Focused Exam Vital Signs: Vital Signs Temp Pulse Resp BP Pulse Ox 04/16/20 22:10 70 16 147/70 H 96 04/16/20 21:51 74 16 142/77 H 96 04/16/20 20:55 36.9 C 74 20 154/93 H 96 - Problem List & Annotations (1) Unstable angina SNOMED Code(s): 3171599, 526228280 Code(s): I20.0 - UNSTABLE ANGINA Status: Acute Priority: Medium - Problem List Review Problem List Initiated/Reviewed/Updated: Yes - My Orders Last 24 Hours: My Active Orders 04/16/20 21:13 EKG Documentation Completion [RC] STAT 04/16/20 21:15 Chest 1V Frontal [CR] Stat - Assessment/Plan Last 24 Hours: My Active Orders 04/16/20 21:13 EKG Documentation Completion [RC] STAT 04/16/20 21:15 Chest 1V Frontal [CR] Stat Assessment:: unstable angina Plan: 1. Follow up with Dr. 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 2. Continue to take your nitroglycerin tablets with chest pain. May take 1 tablet every 5 minutes up to 3 pills. If still having chest pain after the third tablet come to the ED immediately. 3. Please return to the ED if you have any additional or worsening symptoms. 4. Please call if you have any additional questions or concerns.
[2020-04-16 22:05] LABS: CHLORIDE,CL 100 mmol/L (98-107); SODIUM,NA 138 mmol/L (136-145)
[2020-04-16 22:07] LABS: ANION GAP 17.9 mmol/L (10-20)
[2020-04-16 23:40] VITALS: BP 147/70; PULSE 70
--- NOTE | 2020-04-17 07:43 | CR ---
[id number] RAD/RAD Chest PA or AP 1V EXAM: RAD Chest PA or AP 1V INDICATION: CHEST PAIN. COMPARISON: February 05, 2020 DISCUSSION: Cardiomediastinal silhouette is stable in size and contour. No infiltrate, effusion, pneumothorax, or edema. Bibasilar subsegmental atelectasis and/or scarring. Pulmonary hyperinflation. IMPRESSION: No acute cardiopulmonary abnormality. Nahun Arreola DO 04/17/20 0742 Thank you for allowing us to participate in the care of your patient.
== END 2020-04-16 22:30 | disposition home or self-care (01) ==
LOC: VM.ED 20:55
DX: I25.110 Atherosclerotic heart disease of native coronary artery with unstable angina pectoris (principal); I48.91 Unspecified atrial fibrillation; I11.0 Hypertensive heart disease with heart failure; I50.9 Heart failure, unspecified; I25.2 Old myocardial infarction; E11.9 Type 2 diabetes mellitus without complications; E03.9 Hypothyroidism, unspecified; E66.9 Obesity, unspecified; F17.210 Nicotine dependence, cigarettes, uncomplicated; Z88.1 Allergy status to other antibiotic agents; Z88.8 Allergy status to other drugs, medicaments and biological substances; Z79.899 Other long term (current) drug therapy; Z79.82 Long term (current) use of aspirin; Z79.84 Long term (current) use of oral hypoglycemic drugs; Z95.5 Presence of coronary angioplasty implant and graft; Z88.2 Allergy status to sulfonamides; Z68.33 Body mass index [BMI] 33.0-33.9, adult
CPT/HCPCS: 36415; 71045; 80053; 82550; 83880; 84484; 85025; 86140; 93005; 99284-GF; 99285-25; A9270-GY

== ENCOUNTER 2020-08-04 20:42 | Emergency (ER) | payer MEDICAID ==
[2020-08-04] MEDS ORDERED: Sodium Chloride 0.9% 10 ML Syringe FLUSH PRN (21:00)
[2020-08-04] MEDS ORDERED: Aspirin 81 MG Tab.Chew PO ONE (21:00)
[2020-08-04 21:38] LABS: PTT,PARTIAL THROMBOPLSTIN TIME 36.8 SEC (25.6-32.8)
[2020-08-04 22:05] VITALS: BP 125/82; PULSE 66
[2020-08-04 22:09] LABS: CHLORIDE,CL 105 mmol/L (98-107); SODIUM,NA 139 mmol/L (136-145)
[2020-08-04 22:18] LABS: ANION GAP 17.2 mmol/L (10-20)
--- NOTE | 2020-08-04 22:57 | EDM.PDOC ---
ED HPI GENERAL MEDICAL PROBLEM - General Chief Complaint: Chest Pain Stated Complaint: BACK AND SHOULDER PAIN Time Seen by Provider: 08/04/20 20:45 Source of Information: Reports: Patient History Limitations: Reports: No Limitations - History of Present Illness INITIAL COMMENTS - FREE TEXT/NARRATIVE: Patient comes emergency department today from home with complaints of back ilsa ulder pain that radiates down to his chest from the left side. This patient has a extensive cardiac history. He has had bypass as well as stents. His most recent stents were back in January of this year. Today at approximately 4pm developed this pain in his back and left shoulder blade area that radiated down to his chest. Did not feel like his typical angina type pain. It was more sharp shooting stabbing squeezing and intermittent. He had no shortness of breath no diaphoresis. Some nausea but no vomiting. He did try nitroglycerin that relieved did possibly help the pain but he was not sure. He waited for a couple of hours and it returned he took another nitro with resolution of his symptoms. He did take an extra 81mg aspirin as well. He has not used any of his nitro since January of this year. He has had no abdominal pain. Some nausea without vomiting. No weakness dizziness lightheadedness. No overt shortness of breath cough or congestion. No fever no chills. No loss of taste or smell. No diarrhea. No Covid exposure no Covid symptoms. The patients CP had resolved prior to arrival and no CP upon arrival. 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 - Related Data Allergies Allergy/AdvReac Type Severity Reaction Status Date / Time azithromycin AdvReac Mild Liver Verified 08/04/20 21:58 Problems empagliflozin AdvReac Mild Other Verified 08/04/20 21:58 [From Jardiance] Home Meds: Home Meds Ferrous Sulfate 325 mg PO DAILY 02/15/15 [History] Nitroglycerin [Nitrostat] 0.4 mg SL Q5M PRN 02/15/15 [History] metFORMIN [Glucophage] 1,000 mg PO BID 02/15/15 [History] Albuterol Sulfate [Proair Hfa] 1 - 2 inh IH Q4HR PRN 03/27/17 [History] Cyclobenzaprine [Flexeril] 5 mg PO TID PRN 03/27/17 [History] Isosorbide Mononitrate [Imdur] 30 mg PO DAILY 03/27/17 [History] Losartan [Cozaar] 25 mg PO DAILY 03/27/17 [History] Pantoprazole Sodium [Protonix] 40 mg PO DAILY 03/27/17 [History] Diphenoxylate HCl/Atropine [Lomotil] 1 tab PO QID PRN 08/15/19 [History] Glycopyrrolate/Formoterol Fum [Bevespi Aerosphere Inhaler] 2 puff IH BID 08/15/19 [History] Rosuvastatin Calcium [Crestor] 40 mg PO DAILY 08/15/19 [History] Levothyroxine 125 mcg PO ACBREAKFAST tablet 08/17/19 [Rx] Rivaroxaban [Xarelto] 20 mg PO DAILY 04/16/20 [History] Ticagrelor [Brilinta] 90 mg PO BID 04/16/20 [History] Ergocalciferol (Vitamin D2) [Drisdol] 50,000 unit PO WEEKLY 06/06/20 [History] Metoprolol Succinate [Toprol XL 50mg] 50 mg PO DAILY 06/06/20 [History] Nicotine [Nicotine Patch] 21 mg TD DAILY 06/06/20 [History] glipiZIDE [Glipizide ER] 2.5 mg PO DAILY 06/06/20 [History] Past Medical History HEENT History: Reports: Otitis Media Cardiovascular History: Reports: Afib, CAD, Heart Failure, High Cholesterol, Hypertension, PR, Prior Cardiac Arrest Other Cardiovascular History: right aortic arch. bilateral carotid artery stenosis Respiratory History: Reports: COPD Other Respiratory History: chronic lung disease. hypoxia. oxygen dependent Gastrointestinal History: Reports: GERD Genitourinary History: Reports: Renal Disease Musculoskeletal History: Reports: Arthritis Psychiatric History: Reports: Anxiety Endocrine/Metabolic History: Reports: Diabetes, Type II, Hypothyroidism, Obesity/BMI 30+ Hematologic History: Reports: Anemia - Infectious Disease History Infectious Disease History: Reports: Other (See Below) - Past Surgical History Cardiovascular Surgical History: Reports: Coronary Artery Stent, Valve Replacement Other Cardiovascular Surgeries/Procedures: pulmonary valvulotomy. septal repair Respiratory Surgical History: Reports: Tracheostomy Other GI Surgeries/Procedures: PEG tube insertion Social & Family History - Family History Family Medical History: Noncontributory - Tobacco Use Tobacco Use Status *Q: Current Some Day Tobacco User Years of Tobacco use: 25 Packs/Tins Daily: 0.1 - Caffeine Use Caffeine Use: Reports: Coffee - Recreational Drug Use Recreational Drug Use: No - Sexual History Sexual History: Reports: None - Living Situation & Occupation Living situation: Reports: Single, with Family Occupation: Unemployed ED ROS GENERAL - Review of Systems Review Of Systems: Comprehensive ROS is negative, except as noted in HPI. ED EXAM, GENERAL - Physical Exam Exam: See Below Exam Limited By: No Limitations General Appearance: Alert, WD/WN, No Apparent Distress, Anxious Eye Exam: Bilateral Eye: EOMI, PERRL Ears: Normal External Exam, Normal TMs Nose: Normal Inspection, Normal Mucosa Throat/Mouth: Normal Inspection, Normal Lips, Normal Oropharynx, Normal Voice Head: Atraumatic, Normocephalic Neck: Normal Inspection, Supple, Non-Tender Respiratory/Chest: No Respiratory Distress, Lungs Clear, Normal Breath Sounds, No Accessory Muscle Use, Chest Non-Tender Cardiovascular: Normal Peripheral Pulses, Regular Rate, Rhythm GI/Abdominal: Normal Bowel Sounds, Soft, Non-Tender (Male) Exam: Deferred Rectal (Males) Exam: Deferred Back Exam: Normal Inspection, Full Range of Motion Extremities: Normal Inspection, Normal Range of Motion, Non-Tender, No Pedal Edema, Normal Capillary Refill Neurological: Alert, Oriented, Normal Cognition, No Motor/Sensory Deficits Psychiatric: Normal Affect, Normal Mood Skin Exam: Warm, Dry, Intact, No Rash, Pallor Lymphatic: No Adenopathy #1 Interpretation EKG Date: 08/05/20 Time: 20:54 Rate (Beats/Min): 69 [place]: Normal P-Wave: Present QRS: Normal ST-T: Normal QT: Normal Comparison: No Change Course - Vital Signs Last Recorded V/S: Last Vital Signs Temp 97.9 F 08/04/20 22:01 Pulse 66 08/04/20 22:01 Resp 16 08/04/20 22:01 BP 125/82 08/04/20 22:01 Pulse Ox 97 08/04/20 22:01 - Orders/Labs/Meds Orders: Active Orders 24 hr Category Date Time Status Chest 1V Frontal [CR] Stat Exams 08/04/20 21:00 Taken Peripheral IV Insertion Adult [OM.PC] Stat Oth 08/04/20 20:59 Ordered Labs: Laboratory Tests 08/04/20 08/04/20 08/04/20 Range/Units 21:14 21:14 21:42 WBC 9.1 (4.0-10.0) x10^3/uL RBC 3.91 L (4.5-6.0) x10^6/uL Hgb 11.2 L (14.0-18.0) g/dL Hct 33.4 L (40.0-52.0) % MCV 85.4 (78.0-93.0) fL MCH 28.6 (26.0-32.0) pg MCHC 33.5 (32.0-36.0) g/dL RDW Coeff of Prashant 15.2 H (10.0-15.0) % Plt Count 274 (130-400) x10^3/uL Neut % (Auto) 65.5 (50.0-80.0) % Lymph % (Auto) 22.6 L (25.0-50.0) % [place] % (Auto) 8.7 (2.0-11.0) % Eos % (Auto) 3.0 (0.0-4.0) % Baso % (Auto) 0.2 (0.2-1.2) % PT 12.7 H D (9.5-12.3) SEC INR 1.2 L (2.0-3.5) APTT 36.8 H (25.6-32.8) SEC Sodium 139 (136-145) mmol/L Potassium 4.2 (3.5-5.1) mmol/L Chloride 105 (98-107) mmol/L Carbon Dioxide 21 (21-32) mmol/L Anion Gap 17.2 (10-20) mmol/L BUN 26 H (7-18) mg/dL Creatinine 1.6 H (0.70-1.30) mg/dL Est Cr Clr Drug Dosing 45.97 mL/min Estimated GFR (MDRD) 45 Glucose 79 (74-106) mg/dL Calcium 8.1 L (8.5-10.1) mg/dL Corrected Calcium 8.82 (8.5-10.1) mg/dL Total Bilirubin 0.3 (0.2-1.0) mg/dL AST 37 (15-37) U/L ALT 43 (16-63) U/L Alkaline Phosphatase 74 (46-116) U/L Troponin I < 0.017 (<=0.056) ng/mL Total Protein 7.2 (6.4-8.2) g/dL Albumin 3.1 L (3.4-5.0) g/dL Globulin 4.1 Albumin/Globulin Ratio 0.76 Meds: Medications Discontinued Medications Generic Name Dose Route Start Last Admin Trade Name Freq PRN Reason Stop Dose Admin Aspirin 243 mg 08/04/20 21:00 08/04/20 21:00 Aspirin PO 08/04/20 21:01 243 mg ONETIME ONE Administration Sodium Chloride 10 ml 08/04/20 21:00 Saline Flush FLUSH ASDIRECTED PRN Keep Vein Open - Radiology Interpretation Free Text/Narrative:: CXR per radiology with Cardiomegaly, no CHF. - Re-Assessments/Exams Free Text/Narrative Re-Assessment/Exam: 08/05/20 00:[address] elevation or depression when reviewed extemporaneously by myself. CXR with cardiomegaly no CHF. Asa 283 orally. Labs drawn. Creat 1.6 which is about baseline for him Troponin is negative. He had no reoccurrence of chest pain while in the ED. This could of been a muscle strain or angina although not like his typical angina. We will discharge home at this time recheck if any concerns. The patient is comfortable with this plan and his questions answered. We talked about using his nitro if his pain returns and keep a diary of his nitro usage and when to follow up. Departure - Departure Time of Disposition: 22:48 Disposition: Home, Self-Care 01 Clinical Impression: Atypical chest pain Instructions: Nonspecific Chest Pain, Adult, [id number] Referrals: Jimmy Dominguez MD [Primary Care Provider] - Forms: ED Department Discharge Additional Instructions: Continue with your previous medications. Use your nitro if you develop any angina type chest pain. Keep track of how much you are using your nitro. If you see an increasing prevalence of your nitro usage recheck with your PCP. Return to the ED if new or worsening symptoms. Recheck with PCP in the next 4-6 days if any concerns. Sepsis Event Note (ED) - Evaluation Sepsis Screening Result: No Definite Risk - Focused Exam Vital Signs: Vital Signs Temp Pulse Resp BP Pulse Ox 08/04/20 22:01 97.9 F 66 16 125/82 97 10/24/20 20:53 67 17 115/63 99 - My Orders Last 24 Hours: My Active Orders 08/04/20 20:59 Peripheral IV Insertion Adult [OM.PC] Stat 08/04/20 21:00 Chest 1V Frontal [CR] Stat - Assessment/Plan Last 24 Hours: My Active Orders 08/04/20 20:59 Peripheral IV Insertion Adult [OM.PC] Stat 08/04/20 21:00 Chest 1V Frontal [CR] Stat
--- NOTE | 2020-08-06 10:14 | CR ---
[id number] RAD/RAD Chest PA or AP 1V EXAM: RAD Chest PA or AP 1V INDICATION: CHEST PAIN COMPARISON: April 2020. DISCUSSION: Cardiomegaly and central vascular congestion. Bilateral symmetric lung hyperinflation. Mild amount of scarring. No evidence of pneumonia. No pleural effusion or pneumothorax. IMPRESSION: As above. Ino Rodriguez MD 08/06/20 1013 Thank you for allowing us to participate in the care of your patient.
== END 2020-08-04 23:06 | disposition home or self-care (01) ==
LOC: VM.ED 20:42
DX: R07.89 Other chest pain (principal); I48.91 Unspecified atrial fibrillation; I25.10 Atherosclerotic heart disease of native coronary artery without angina pectoris; I11.0 Hypertensive heart disease with heart failure; I50.9 Heart failure, unspecified; I25.2 Old myocardial infarction; J44.9 Chronic obstructive pulmonary disease, unspecified; E11.9 Type 2 diabetes mellitus without complications; E03.9 Hypothyroidism, unspecified; K21.9 Gastro-esophageal reflux disease without esophagitis; F17.210 Nicotine dependence, cigarettes, uncomplicated; E66.9 Obesity, unspecified; Z88.1 Allergy status to other antibiotic agents; Z88.8 Allergy status to other drugs, medicaments and biological substances; Z79.84 Long term (current) use of oral hypoglycemic drugs; Z79.01 Long term (current) use of anticoagulants; Z79.899 Other long term (current) drug therapy
CPT/HCPCS: 71045; 80053; 84484; 85025; 85610; 85730; 93005; 93010; 99284; 99285-25; A9270-GY

== ENCOUNTER 2020-11-01 22:05 | Emergency (ER) | payer MEDICAID ==
[2020-11-01] MEDS ORDERED: Aspirin 81 MG Tab.Chew PO ONE (22:15)
[2020-11-01] MEDS ORDERED: Sodium Chloride 0.9% 10 ML Syringe FLUSH PRN (22:15)
--- NOTE | 2020-11-01 22:22 | EDM.PDOC ---
ED HPI GENERAL MEDICAL PROBLEM - General Stated Complaint: CHEST PAIN Time Seen by Provider: 11/01/20 22:05 Source of Information: Reports: Patient History Limitations: Reports: No Limitations - History of Present Illness INITIAL COMMENTS - FREE TEXT/NARRATIVE: Patient comes emergency department today with complaints of chest pain. This patient has a significant history of coronary artery disease coronary artery bypass graft. He has 6 cardiac stents pulse coronary artery bypass graft. He has angina as well in his past. About 9:00 tonight he had a sudden tightness heaviness sensation across his chest. He became short of breath and diaphoretic. He took 2 baby aspirin's and a nitro at that time. The chest pain resolved but returned about a half an hour later. He took another dose of nitro and his pain is resolved but he continues to be short of breath with any physical exertion and diaphoretic. He has had nausea without vomiting. No weakness dizziness lightheadedness. No cough or congestion. No fever no chills. No abdominal pain. Nausea without vomiting. No hematuria dysuria or urinary frequency. No black or tarry stools. No Covid exposure no Covid symptoms. He also has HTN diabetes as well. - Related Data Allergies Allergy/AdvReac Type Severity Reaction Status Date / Time azithromycin AdvReac Mild Liver Verified 11/01/20 23:04 Problems empagliflozin AdvReac Mild Other Verified 11/01/20 23:04 [From Jardiance] Home Meds: Home Meds Ferrous Sulfate 325 mg PO DAILY 02/15/15 [History] Nitroglycerin [Nitrostat] 0.4 mg SL Q5M PRN 02/15/15 [History] metFORMIN [Glucophage] 1,000 mg PO BID 02/15/15 [History] Albuterol Sulfate [Proair Hfa] 1 - 2 inh IH Q4HR PRN 03/27/17 [History] Cyclobenzaprine [Flexeril] 5 mg PO TID PRN 03/27/17 [History] Isosorbide Mononitrate [Imdur] 30 mg PO DAILY 03/27/17 [History] Losartan [Cozaar] 25 mg PO DAILY 03/27/17 [History] Pantoprazole Sodium [Protonix] 40 mg PO DAILY 03/27/17 [History] Diphenoxylate HCl/Atropine [Lomotil] 1 tab PO QID PRN 08/15/19 [History] Glycopyrrolate/Formoterol Fum [Bevespi Aerosphere Inhaler] 2 puff IH BID 08/15/19 [History] Rosuvastatin Calcium [Crestor] 40 mg PO DAILY 08/15/19 [History] Levothyroxine 125 mcg PO ACBREAKFAST tablet 08/17/19 [Rx] Rivaroxaban [Xarelto] 20 mg PO DAILY 04/16/20 [History] Ticagrelor [Brilinta] 90 mg PO BID 04/16/20 [History] Ergocalciferol (Vitamin D2) [Drisdol] 50,000 unit PO WEEKLY 06/06/20 [History] Metoprolol Succinate [Toprol XL 50mg] 50 mg PO DAILY 06/06/20 [History] Nicotine [Nicotine Patch] 21 mg TD DAILY 06/06/20 [History] glipiZIDE [Glipizide ER] 2.5 mg PO DAILY 06/06/20 [History] Past Medical History HEENT History: Reports: Otitis Media Cardiovascular History: Reports: Afib, CAD, Heart Failure, High Cholesterol, Hypertension, [place], Prior Cardiac Arrest Other Cardiovascular History: right aortic arch. bilateral carotid artery stenosis Respiratory History: Reports: COPD Other Respiratory History: chronic lung disease. hypoxia. oxygen dependent Gastrointestinal History: Reports: GERD Genitourinary History: Reports: Renal Disease Musculoskeletal History: Reports: Arthritis Psychiatric History: Reports: Anxiety Endocrine/Metabolic History: Reports: Diabetes, Type II, Hypothyroidism, Obesity/BMI 30+ Hematologic History: Reports: Anemia - Infectious Disease History Infectious Disease History: Reports: Other (See Below) - Past Surgical History Cardiovascular Surgical History: Reports: Coronary Artery Stent, Valve Replacement Other Cardiovascular Surgeries/Procedures: pulmonary valvulotomy. septal repair Respiratory Surgical History: Reports: Tracheostomy Other GI Surgeries/Procedures: PEG tube insertion Social & Family History - Family History Family Medical History: No Pertinent Family History - Caffeine Use Caffeine Use: Reports: Coffee - Sexual History Sexual History: Reports: None - Living Situation & Occupation Living situation: Reports: Single, with Family Occupation: Unemployed ED ROS GENERAL - Review of Systems Review Of Systems: Comprehensive ROS is negative, except as noted in HPI. ED EXAM, GENERAL - Physical Exam Exam: See Below Exam Limited By: No Limitations General Appearance: Alert, WD/WN, No Apparent Distress Ears: Normal External Exam Nose: Normal Inspection Throat/Mouth: Normal Inspection Head: Atraumatic, Normocephalic Neck: Normal Inspection, Supple, Non-Tender Respiratory/Chest: No Respiratory Distress, Lungs Clear, Normal Breath Sounds, No Accessory Muscle Use, Chest Non-Tender Cardiovascular: Normal Peripheral Pulses, Regular Rate, Rhythm GI/Abdominal: Normal Bowel Sounds, Soft, Non-Tender Back Exam: Normal Inspection Extremities: Normal Inspection, Normal Range of Motion, Non-Tender, No Pedal Edema, Normal Capillary Refill Neurological: Alert, Oriented, Normal Cognition, No Motor/Sensory Deficits Psychiatric: Normal Affect, Normal Mood Skin Exam: Intact, Cool, Diaphoretic, Pallor #1 Interpretation EKG Date: 11/01/20 Time: 22:04 Rhythm: NSR Rate (Beats/Min): 69 [place]: Normal P-Wave: Present QRS: Normal ST-T: Normal QT: Normal Comparison: No Change Course - Vital Signs Last Recorded V/S: Last Vital Signs Temp 97.6 F 11/01/20 22:10 Pulse 62 11/02/20 00:23 Resp 18 11/02/20 00:23 BP 136/73 11/02/20 00:23 Pulse Ox 95 11/02/20 00:23 - Orders/Labs/Meds Orders: Active Orders 24 hr Category Date Time Status EKG Documentation Completion [RC] STAT Care 11/01/20 22:15 Active Chest 1V Frontal [CR] Stat Exams 11/01/20 22:17 Taken TROPONIN I [CHEM] Timed Lab 11/02/20 02:30 Ordered Sodium Chloride 0.9% [Saline Flush] Med 11/01/20 22:15 Active 10 ml FLUSH ASDIRECTED PRN Peripheral IV Insertion Adult [OM.PC] Stat Oth 11/01/20 22:15 Ordered Medication Orders Sodium Chloride (Saline Flush) 10 ml FLUSH ASDIRECTED PRN PRN Reason: Keep Vein Open Last Admin: 11/01/20 22:57 Dose: 10 ml Documented by: JOVON Labs: Laboratory Tests 11/01/20 11/01/20 11/01/20 Range/Units 22:31 22:31 22:31 WBC 7.1 (4.0-10.0) x10^3/uL RBC 3.83 L (4.5-6.0) x10^6/uL Hgb 10.5 L (14.0-18.0) g/dL Hct 32.9 L (40.0-52.0) % MCV 85.9 (78.0-93.0) fL MCH 27.4 (26.0-32.0) pg MCHC 31.9 L (32.0-36.0) g/dL RDW Coeff of Prashant 15.5 H (10.0-15.0) % Plt Count 192 D (130-400) x10^3/uL Neut % (Auto) 63.9 (50.0-80.0) % Lymph % (Auto) 24.2 L (25.0-50.0) % [place] % (Auto) 9.1 (2.0-11.0) % Eos % (Auto) 2.7 (0.0-4.0) % Baso % (Auto) 0.1 L (0.2-1.2) % PT 11.9 (9.5-12.3) SEC INR 1.1 L (2.0-3.5) APTT 40.1 H (25.6-32.8) SEC Sodium 141 (136-145) mmol/L Potassium 4.3 (3.5-5.1) mmol/L Chloride 106 (98-107) mmol/L Carbon Dioxide 24 (21-32) mmol/L Anion Gap 15.3 H (5-15) mmol/L BUN 32 H (7-18) mg/dL Creatinine 1.6 H (0.70-1.30) mg/dL Est Cr Clr Drug Dosing 45.97 mL/min Estimated GFR (MDRD) 45 Glucose 81 (74-106) mg/dL Calcium 8.5 (8.5-10.1) mg/dL Corrected Calcium 9.22 (8.5-10.1) mg/dL Total Bilirubin 0.3 (0.2-1.0) mg/dL AST 29 (15-37) U/L ALT 35 (16-63) U/L Alkaline Phosphatase 89 (46-116) U/L Troponin I < 0.017 (<=0.056) ng/mL NT-Pro-B Natriuret Pep 1528 H (<=125) pg/mL Total Protein 7.5 (6.4-8.2) g/dL Albumin 3.1 L (3.4-5.0) g/dL Globulin 4.4 Albumin/Globulin Ratio 0.70 Meds: Medications Generic Name Dose Route Start Last Admin Trade Name Lucho PRN Reason Stop Dose Admin Sodium Chloride 10 ml 11/01/20 22:15 11/01/20 22:57 Saline Flush FLUSH 10 ml ASDIRECTED PRN Administration Keep Vein Open Discontinued Medications Generic Name Dose Route Start Last Admin Trade Name Freq PRN Reason Stop Dose Admin Aspirin 162 mg 11/01/20 22:15 11/01/20 22:56 Aspirin PO 11/01/20 22:16 162 mg ONETIME ONE Administration - Radiology Interpretation Free Text/Narrative:: Cardiomegaly without failure. - Re-Assessments/Exams Free Text/Narrative Re-Assessment/Exam: 11/02/20 Patient upon arrival denies any chest pain after his 2 nitroglycerin that he had taken at home. The patient was given 2 baby aspirin's in the emergency department to give him a total of 324 orally. His EKG is unchanged from previously. His chest x-ray is unremarkable as well without any failure. He has some mild elevation of his proBNP but he has no peripheral edema or congestion on his chest x-ray. Laboratory evaluation is rather unremarkable with a negative troponin. Less than 0.017. He does have some chronic renal failure with a creatinine of 1.6 which is at about baseline. The patient came in immediately after his chest pain had developed although it was resolved upon his arrival after the nitro. I am unsure if this is angina or if he is having some type of NSTEMI that was aborted by his nitroglycerin. Further evaluation of this would include a repeat EKG as well as a troponin at the 4-hour javier. I discussed this with the patient as his initial labs does not give us a good troponin reading that we will have to repeat this at approximately 230. At 1:45 AM I was contacted by the nurse and told that the patient has not had any symptoms since he has been here and he is leaving. I returned to the room and asked the patient why he felt that he needed to leave. He stated that no one has ever done this and this is a waste of his time he has had no symptoms since he has been here. I explained to him that he had chest pain that resolved after 2 nitros and came to the emergency department. Troponin does not elevate in the bloodstream for up to 4 hours. To ensure that he did not have any cardiac ischemia or cardiac injury a repeat troponin to rule out cardiac pathology other than angina would be the standard of care. He does not feel that this is appropriate he is understanding the risks of if he leaves AMA. HE refuses to stay and have us draw his blood at this moment and signed out AMA and left. REfused any discharge instructions. Therefore I am unable to determine if this was angina or it was an NSTEMI. 11/02/20 02:05 Departure - Departure Time of Disposition: 01:51 Disposition: Against Medical Advice 07 Clinical Impression: Left against medical advice, Angina at rest Instructions: Angina, [id number] Referrals: PCP,Unknown [Primary Care Provider] - Additional Instructions: Pt Left AMA and refused any discharge instructions. Sepsis Event Note (ED) - Focused Exam Vital Signs: Vital Signs Temp Pulse Resp BP Pulse Ox 11/02/20 00:23 62 18 136/73 95 11/01/20 23:51 72 18 147/72 H 96 11/01/20 23:00 66 14 133/67 96 11/01/20 22:10 97.6 F 66 16 164/64 H 96 - My Orders Last 24 Hours: My Active Orders 11/01/20 22:15 EKG Documentation Completion [RC] STAT Sodium Chloride 0.9% [Saline Flush] 10 ml FLUSH ASDIRECTED PRN Peripheral IV Insertion Adult [OM.PC] Stat 11/01/20 22:17 Chest 1V Frontal [CR] Stat 11/02/20 02:30 TROPONIN I [CHEM] Timed - Assessment/Plan Last 24 Hours: My Active Orders 11/01/20 22:15 EKG Documentation Completion [RC] STAT Sodium Chloride 0.9% [Saline Flush] 10 ml FLUSH ASDIRECTED PRN Peripheral IV Insertion Adult [OM.PC] Stat 11/01/20 22:17 Chest 1V Frontal [CR] Stat 11/02/20 02:30 TROPONIN I [CHEM] Timed
[2020-11-01 23:01] LABS: PTT,PARTIAL THROMBOPLSTIN TIME 40.1 SEC (25.6-32.8)
[2020-11-01 23:16] LABS: CHLORIDE,CL 106 mmol/L (98-107); SODIUM,NA 141 mmol/L (136-145)
[2020-11-01 23:19] LABS: ANION GAP 15.3 mmol/L (5-15)
[2020-11-02 00:23] VITALS: BP 136/73; PULSE 62
--- NOTE | 2020-11-02 08:48 | CR ---
[id number] RAD/RAD Chest PA or AP 1V EXAM: RAD Chest PA or AP 1V INDICATION: CHEST PAIN, SHORTNESS OF BREATH. COMPARISON: August 04, 2020. DISCUSSION: Median sternotomy wires. Cardiomediastinal silhouette is enlarged but stable. No infiltrate, effusion, pneumothorax, or edema. IMPRESSION: No acute cardiopulmonary abnormality. Nahun Arreola DO 11/02/20 0847 Thank you for allowing us to participate in the care of your patient.
== END 2020-11-02 02:00 | disposition left against medical advice (07) ==
LOC: VM.ED 22:05
DX: I25.119 Atherosclerotic heart disease of native coronary artery with unspecified angina pectoris (principal); I48.91 Unspecified atrial fibrillation; I11.0 Hypertensive heart disease with heart failure; I50.9 Heart failure, unspecified; E78.00 Pure hypercholesterolemia, unspecified; I25.2 Old myocardial infarction; J44.9 Chronic obstructive pulmonary disease, unspecified; K21.9 Gastro-esophageal reflux disease without esophagitis; E11.9 Type 2 diabetes mellitus without complications; E03.9 Hypothyroidism, unspecified; E66.9 Obesity, unspecified; Z68.32 Body mass index [BMI] 32.0-32.9, adult; Z95.1 Presence of aortocoronary bypass graft; Z88.1 Allergy status to other antibiotic agents; Z88.8 Allergy status to other drugs, medicaments and biological substances; Z79.01 Long term (current) use of anticoagulants; Z79.84 Long term (current) use of oral hypoglycemic drugs
CPT/HCPCS: 71045; 80053; 83880; 84484; 85025; 85610; 85730; 93005; 93010; 99284; 99285-25; A9270-GY

== ENCOUNTER 2021-04-08 02:05 | Emergency (ER) | payer MEDICAID ==
--- NOTE | 2021-04-08 02:51 | EDM.PDOC ---
ED HPI GENERAL MEDICAL PROBLEM - General Chief Complaint: Cardiovascular Problem Stated Complaint: Bilateral jaw pain, Angina Time Seen by Provider: 04/08/21 02:30 Source of Information: Reports: Patient History Limitations: Reports: No Limitations - History of Present Illness INITIAL COMMENTS - FREE TEXT/NARRATIVE: Patient presents to the ED with complaints of bilateral jaw pain. He has an extensive cardiac history to include valve replacement and multiple stents. He states he has been doing relatively well, occasionally has jaw or chest pain that responds to nitroglycerin. Tonight he was getting ready for bed and had the bilateral jaw pain, but no diaphoresis or nausea. He took 162 mg of aspirin and started to take nitroglycerin. He took a total of 5 tablets within 20 minutes of each other. They did not help his 6/10 chest pain. He decided after 2 hours of them persisting to come to the ED. He drove himself here. Pain as since resolved. No recent illness. States he frequently has jaw pain with his cardiac problems but this was different. Long standing history of poor dentition. Denies any new abscess or problems. NOt currently on a diuretic due to chronic renal issues. denies any weight gain, shortness of breath or pedal edema. Onset: Today (midnight) Duration: Hour(s):, Resolved Prior to Arrival Location: Reports: Face (jaw), Chest Quality: Reports: Pressure, Same as Previous Episode Severity: Moderate Improves with: Reports: Medication (nitro sometimes and eventually with this episode) Worsens with: Reports: None Associated Symptoms: Reports: No Other Symptoms Treatments MANAGER COMMODITIES: Reports: Aspirin, Nitroglycerin Bilateral jaw pain Pain Score (Numeric/FACES): 3 - Related Data Allergies Allergy/AdvReac Type Severity Reaction Status Date / Time azithromycin AdvReac Mild Liver Verified 04/08/21 02:57 Problems empagliflozin AdvReac Mild Other Verified 04/08/21 02:57 [From Jardiance] Home Meds: Home Meds Ferrous Sulfate 325 mg PO DAILY 02/15/15 [History] Nitroglycerin [Nitrostat] 0.4 mg SL Q5M PRN 02/15/15 [History] metFORMIN [Glucophage] 1,000 mg PO BID 02/15/15 [History] Albuterol Sulfate [Proair Hfa] 1 - 2 inh IH Q4HR PRN 03/27/17 [History] Cyclobenzaprine [Flexeril] 5 mg PO TID PRN 03/27/17 [History] Isosorbide Mononitrate [Imdur] 30 mg PO DAILY 03/27/17 [History] Losartan [Cozaar] 25 mg PO DAILY 03/27/17 [History] Pantoprazole Sodium [Protonix] 40 mg PO DAILY 03/27/17 [History] Diphenoxylate HCl/Atropine [Lomotil] 1 tab PO QID PRN 08/15/19 [History] Glycopyrrolate/Formoterol Fum [Bevespi Aerosphere Inhaler] 2 puff IH BID 08/15/19 [History] Rosuvastatin Calcium [Crestor] 40 mg PO DAILY 08/15/19 [History] Levothyroxine 125 mcg PO ACBREAKFAST tablet 08/17/19 [Rx] Rivaroxaban [Xarelto] 20 mg PO DAILY 04/16/20 [History] Ticagrelor [Brilinta] 90 mg PO BID 04/16/20 [History] Ergocalciferol (Vitamin D2) [Drisdol] 50,000 unit PO WEEKLY 06/06/20 [History] Metoprolol Succinate [Toprol XL 50mg] 50 mg PO DAILY 06/06/20 [History] Nicotine [Nicotine Patch] 21 mg TD DAILY 06/06/20 [History] glipiZIDE [Glipizide ER] 2.5 mg PO DAILY 06/06/20 [History] Past Medical History HEENT History: Reports: Otitis Media Cardiovascular History: Reports: Afib, CAD, Heart Failure, High Cholesterol, Hypertension, [place], Prior Cardiac Arrest Other Cardiovascular History: right aortic arch. bilateral carotid artery stenosis Respiratory History: Reports: COPD Other Respiratory History: chronic lung disease. hypoxia. oxygen dependent Gastrointestinal History: Reports: GERD Genitourinary History: Reports: Renal Disease Musculoskeletal History: Reports: Arthritis Psychiatric History: Reports: Anxiety Endocrine/Metabolic History: Reports: Diabetes, Type II, Hypothyroidism, Obesity/BMI 30+ Hematologic History: Reports: Anemia - Infectious Disease History Infectious Disease History: Reports: Other (See Below) - Past Surgical History Cardiovascular Surgical History: Reports: Coronary Artery Stent, Valve Replacement Other Cardiovascular Surgeries/Procedures: pulmonary valvulotomy. septal repair Respiratory Surgical History: Reports: Tracheostomy Other GI Surgeries/Procedures: PEG tube insertion Social & Family History - Family History Family Medical History: No Pertinent Family History - Caffeine Use Caffeine Use: Reports: Coffee - Sexual History Sexual History: Reports: None - Living Situation & Occupation Living situation: Reports: Single, with Family Occupation: Unemployed ED ROS GENERAL - Review of Systems Review Of Systems: See Below Constitutional: Reports: No Symptoms HEENT: Reports: Other (jaw pain) Respiratory: Reports: No Symptoms. Denies: Shortness of Breath, Cough Cardiovascular: Reports: No Symptoms. Denies: Chest Pain, Dyspnea on Exertion Endocrine: Reports: No Symptoms GI/Abdominal: Reports: No Symptoms. Denies: Abdominal Pain, Black Stool, Bloody Stool, Flatus, Nausea, Vomiting : Reports: No Symptoms Musculoskeletal: Reports: No Symptoms Skin: Reports: No Symptoms Neurological: Reports: No Symptoms Psychiatric: Reports: No Symptoms ED EXAM, GENERAL - Physical Exam Exam: See Below Exam Limited By: No Limitations General Appearance: Alert, WD/WN, No Apparent Distress Eye Exam: Bilateral Eye: EOMI, Normal Inspection Ears: Normal External Exam Nose: Normal Inspection, Normal Mucosa Throat/Mouth: Normal Inspection, Normal Lips, Normal Oropharynx, Other (poor dentition, missing most teeth, several with decay and broken at bases) Head: Atraumatic Neck: Normal Inspection, Supple, Full Range of Motion Respiratory/Chest: No Respiratory Distress, Lungs Clear, Normal Breath Sounds, No Accessory Muscle Use Cardiovascular: Normal Peripheral Pulses, Regular Rate, Rhythm GI/Abdominal: Normal Bowel Sounds, Soft, Non-Tender, No Organomegaly Back Exam: Normal Inspection. No: CVA Tenderness (L), CVA Tenderness (R) Extremities: Normal Inspection, Normal Range of Motion, No Pedal Edema Neurological: Alert, Oriented, CN II-XII Intact, Normal Cognition Psychiatric: Anxious Skin Exam: Warm #1 Interpretation EKG Date: 04/08/21 Rhythm: NSR Rate (Beats/Min): 66 [place]: Normal P-Wave: Present QRS: Normal ST-T: Normal QT: Normal Comparison: No Change Course - Vital Signs Last Recorded V/S: Last Vital Signs Temp 36.6 C 04/08/21 02:10 Pulse 67 04/08/21 02:10 Resp 16 04/08/21 02:40 BP 124/83 04/08/21 02:40 Pulse Ox 97 04/08/21 02:40 - Orders/Labs/Meds Orders: Active Orders 24 hr Category Date Time Status PRO B-TYPE NATRIUR PEPT,BNPPRO [CHEM] Stat Lab 04/08/21 02:35 Received Labs: Laboratory Tests 04/08/21 04/08/21 04/08/21 Range/Units 02:35 02:35 02:35 WBC 8.3 (4.0-10.0) x10^3/uL RBC 4.38 L (4.5-6.0) x10^6/uL Hgb 11.8 L (14.0-18.0) g/dL Hct 36.4 L (40.0-52.0) % MCV 83.1 (78.0-93.0) fL MCH 26.9 (26.0-32.0) pg MCHC 32.4 (32.0-36.0) g/dL RDW Coeff of Prashant 17.6 H (10.0-15.0) % Plt Count 206 (130-400) x10^3/uL Add Manual Diff Yes Neutrophils % (Manual) 68 (50-80) % Lymphocytes % (Manual) 25 (25-50) % Monocytes % (Manual) 4 (2-11) % Eosinophils % (Manual) 3 (0-4) % Platelet Estimate Adequate PT 12.0 (9.9-12.5) SEC INR 1.1 L (2.0-3.5) Sodium 139 (136-145) mmol/L Potassium 4.0 (3.5-5.1) mmol/L Chloride 104 (98-107) mmol/L Carbon Dioxide 23 (21-32) mmol/L Anion Gap 16.0 H (5-15) mmol/L BUN 23 H (7-18) mg/dL Creatinine 1.9 H (0.70-1.30) mg/dL Est Cr Clr Drug Dosing 38.24 mL/min Estimated GFR (MDRD) 37 Glucose 93 (70-99) mg/dL Calcium 7.8 L (8.5-10.1) mg/dL Corrected Calcium 8.5 (8.5-10.1) mg/dL Total Bilirubin 0.2 (0.2-1.0) mg/dL AST 20 (15-37) U/L ALT 27 (16-63) U/L Alkaline Phosphatase 73 (46-116) U/L Troponin I High Sens 28 (<=76) ng/L Total Protein 7.8 (6.4-8.2) g/dL Albumin 3.1 L (3.4-5.0) g/dL Globulin 4.7 Albumin/Globulin Ratio 0.66 - Re-Assessments/Exams Free Text/Narrative Re-Assessment/Exam: 04/08/21 02:56 pateint is resolved of his pain, has been at least two hours. Will check some labs. Has had significant amount of chest x-ray, no actual chest complaints. will not get chest x-ray as symptoms are resolved. discussed with him need or better dental care as correlation with poor dentition and cardiac problems has been proven, already had aspirin, on a blood thinner ( xarelto) 04/08/21 03:25 normal testing follow up with cardiology and PCP. BNP was been 1800 in the past. Departure - Departure Time of Disposition: 03:35 Disposition: Home, Self-Care 01 Condition: Good Clinical Impression: Jaw pain, non-TMJ, Anginal equivalent Instructions: Angina, [id number] Referrals: PCP,None [Primary Care Provider] - Forms: ED Department Discharge Additional Instructions: It is very important to have good dental care as it has been proven that poor dental care and cavities/decay are correlated with cardiac problems. Make appointment with oral surgeon for decaying teeth to be removed. Close follow up with your strap buckler and your PCP is suggested. Testing today revealed no heart attack. Your heart failure number was elevated at the same number as it has been in the past and your kidney function is slightly elevated as it has been before. Sepsis Event Note (ED) - Focused Exam Vital Signs: Vital Signs Temp Pulse Resp BP Pulse Ox 04/08/21 02:40 16 124/83 97 04/08/21 02:10 36.6 C 67 16 129/84 97 - My Orders Last 24 Hours: My Active Orders 04/08/21 02:35 PRO B-TYPE NATRIUR PEPT,BNPPRO [CHEM] Stat - Assessment/Plan Last 24 Hours: My Active Orders 04/08/21 02:35 PRO B-TYPE NATRIUR PEPT,BNPPRO [CHEM] Stat
[2021-04-08 02:57] VITALS: PULSE 67
[2021-04-08 04:07] VITALS: BP 137/83
== END 2021-04-08 03:48 | disposition home or self-care (01) ==
LOC: VM.ED 02:05
DX: I25.118 Atherosclerotic heart disease of native coronary artery with other forms of angina pectoris (principal); R68.84 Jaw pain; I48.91 Unspecified atrial fibrillation; I11.0 Hypertensive heart disease with heart failure; I50.9 Heart failure, unspecified; E78.00 Pure hypercholesterolemia, unspecified; I25.2 Old myocardial infarction; J44.9 Chronic obstructive pulmonary disease, unspecified; K21.9 Gastro-esophageal reflux disease without esophagitis; M19.90 Unspecified osteoarthritis, unspecified site; E11.9 Type 2 diabetes mellitus without complications; E03.9 Hypothyroidism, unspecified; D64.9 Anemia, unspecified; E66.9 Obesity, unspecified; Z68.33 Body mass index [BMI] 33.0-33.9, adult; Z95.5 Presence of coronary angioplasty implant and graft; Z95.4 Presence of other heart-valve replacement; Z88.1 Allergy status to other antibiotic agents; Z88.8 Allergy status to other drugs, medicaments and biological substances; Z79.01 Long term (current) use of anticoagulants; Z79.84 Long term (current) use of oral hypoglycemic drugs; Z79.899 Other long term (current) drug therapy
CPT/HCPCS: 36415; 80053; 83880; 84484; 85025; 85610; 93010; 99283-25; 99284

== ENCOUNTER 2023-01-08 20:18 | Emergency (ER) | payer MEDICAID ==
[2023-01-08 21:44] VITALS: BP 179/89; PULSE 82
== END 2023-01-08 20:47 | disposition left against medical advice (07) ==
LOC: VM.ED 20:18
DX: I20.9 Angina pectoris, unspecified (principal); I48.91 Unspecified atrial fibrillation; E78.00 Pure hypercholesterolemia, unspecified; I25.2 Old myocardial infarction; K21.9 Gastro-esophageal reflux disease without esophagitis; E11.22 Type 2 diabetes mellitus with diabetic chronic kidney disease; E03.9 Hypothyroidism, unspecified; E66.9 Obesity, unspecified; Z68.30 Body mass index [BMI] 30.0-30.9, adult; Z88.1 Allergy status to other antibiotic agents; Z88.8 Allergy status to other drugs, medicaments and biological substances; Z79.84 Long term (current) use of oral hypoglycemic drugs; Z79.899 Other long term (current) drug therapy; Z79.01 Long term (current) use of anticoagulants; Z87.891 Personal history of nicotine dependence
CPT/HCPCS: 93005; 93010; 99285

== ENCOUNTER 2023-11-25 | Inpatient (IN) | payer MEDICAID ==
[2023-11-25] MEDS: Aspirin 81 MG Tab.Chew PO ONE (00:30)
[2023-11-25 00:57] LABS: BASOPHILS PERCENT AUTO 0.2 % (0.2-1.2); EOSINOPHILS ABSOLUTE AUTO 0.2 x10^3/uL (0.0-0.5); EOSINOPHILS PERCENT AUTO 1.7 % (0.0-4.0); HEMATOCRIT 44.3 % (40.0-52.0); HEMOGLOBIN 14.7 g/dL (14.0-18.0); IMMATURE GRAN ABSOLUTE AUTO 0.01 x10^3/uL (0.00-0.07); LYMPHOCYTES ABSOLUTE AUTO 1.6 x10^3/uL (1.0-4.8); LYMPHOCYTES PERCENT AUTO 18.1 % (25.0-50.0); MEAN CORPUSCULAR HEMOGLOBIN 27.4 pg (26.0-32.0); MEAN CORPUSCULAR HGB CONC 33.2 g/dL (32.0-36.0); MEAN CORPUSCULAR VOLUME 82.6 fL (78.0-93.0); MONOCYTES ABSOLUTE AUTO 0.7 x10^3/uL (0.0-0.8); MONOCYTES PERCENT AUTO 8.4 % (2.0-11.0); NEUTROPHILS ABSOLUTE AUTO 6.2 x10^3/uL (1.8-7.7); NEUTROPHILS PERCENT AUTO 71.5 % (50.0-80.0); PLATELET COUNT,PLT 211 x10^3/uL (130-400); RED BLOOD CELL COUNT 5.36 x10^6/uL (4.5-6.0); WHITE BLOOD CELL COUNT,WBC 8.6 x10^3/uL (4.0-10.0)
[2023-11-25 01:14] LABS: A/G RATIO 0.74; ALANINE AMINOTRANSFERASE,ALT 48 U/L (16-63); ALBUMIN 3.5 g/dL (3.4-5.0); ALKALINE PHOSPHATASE 137 U/L (46-116); ANION GAP 22.1 mmol/L (5-15); ASPARTATE AMNIOTRANSFERASE,AST 39 U/L (15-37); BILIRUBIN TOTAL 0.3 mg/dL (0.2-1.0); BLOOD UREA NITROGEN,BUN 41 mg/dL (7-18); C-REACTIVE PROTEIN < 0.50 mg/dL (<=0.50); CALCIUM 8.6 mg/dL (8.5-10.1); CARBON DIOXIDE,CO2 20 mmol/L (21-32); CHLORIDE,CL 102 mmol/L (98-107); CREATININE 2.2 mg/dL (0.70-1.30); ESTIMATED GFR 33 mL/min (>=60); GLUCOSE RANDOM 266 mg/dL (70-99); POTASSIUM,K 4.1 mmol/L (3.5-5.1); PROTEIN TOTAL,TP 8.2 g/dL (6.4-8.2); PROTHROMBIN TIME 10.7 SEC (9.5-12.2); SODIUM,NA 140 mmol/L (136-145)
[2023-11-25] MEDS: Diltiazem 50 MG/10 ML SDV IVPUSH ONE (01:45)
[2023-11-25] MEDS ORDERED: Sodium Chloride 0.9% 10 ML Syringe FLUSH PRN (03:16)
[2023-11-25] MEDS ORDERED: Albuterol HFA 18 Gm Inhaler INH PRN (03:24)
[2023-11-25] MEDS ORDERED: Nitroglycerin 0.4 MG Tab.SL SL PRN (03:24)
[2023-11-25] MEDS ORDERED: Cyclobenzaprine 10 MG Tab PO PRN (03:24)
[2023-11-25] MEDS ORDERED: Acetaminophen 325 MG Tab PO PRN (03:40)
[2023-11-25] MEDS ORDERED: Ondansetron 4 MG Tab.DIS PO PRN (03:40)
[2023-11-25] MEDS: Levothyroxine 112 MCG Tab PO SCH (06:07)
[2023-11-25 06:37] LABS: HEMOGLOBIN 13.6 g/dL (14.0-18.0); MEAN CORPUSCULAR HEMOGLOBIN 27.7 pg (26.0-32.0); MEAN CORPUSCULAR HGB CONC 33.2 g/dL (32.0-36.0); MEAN CORPUSCULAR VOLUME 83.5 fL (78.0-93.0); RED BLOOD CELL COUNT 4.91 x10^6/uL (4.5-6.0); WHITE BLOOD CELL COUNT,WBC 7.4 x10^3/uL (4.0-10.0)
[2023-11-25 07:02] LABS: CALCIUM 8.4 mg/dL (8.5-10.1); CREATININE 1.9 mg/dL (0.70-1.30); EST CRCL DRUG DOSING (CG) 37.31 mL/min; MAGNESIUM 1.7 mg/dL (1.8-2.4)
[2023-11-25] MEDS: Nicotine 21 MG/24 Hr Patch TRDERM SCH (08:13)
[2023-11-25] MEDS: Pantoprazole 40 MG Tab.CR PO SCH (08:15)
[2023-11-25] MEDS ORDERED: Albuterol/Ipratropium 3.0-0.5 MG/3 ML Neb Soln INH SCH (08:15)
[2023-11-25] MEDS: Isosorbide Mononitrate 30 MG Tab.ER PO SCH (08:16)
[2023-11-25] MEDS: Aspirin 81 MG Tab.EC PO SCH (08:16)
[2023-11-25] MEDS: metFORMIN 500 MG Tab PO SCH (08:17)
[2023-11-25] MEDS: Rivaroxaban 10 MG Tab PO SCH (08:17)
[2023-11-25] MEDS: Ferrous Sulfate 325 MG Tab PO SCH (08:20)
[2023-11-25] MEDS: Cholecalciferol (Vitamin D3) 25 MCG Tab PO SCH (08:20)
[2023-11-25] MEDS: Metoprolol Succinate 50 MG Tab.ER PO SCH (08:21)
[2023-11-25] MEDS: atorvaSTATin 40 MG Tab PO SCH (08:22)
[2023-11-25] MEDS: Losartan 25 MG Tab PO SCH (08:23)
[2023-11-25] MEDS ORDERED: Non-Formulary Medication 1 Each (Umeclidinium Brm/Vilanterol Tr [Anoro Ellipta 62.5-25 Mcg INH SCH (09:00)
[2023-11-25] MEDS ORDERED: Nicotine 21 MG/24 Hr Patch TRDERM SCH (09:00)
[2023-11-25 10:55] VITALS: BP 188/89; PULSE 63
== END 2023-11-25 10:10 | disposition short-term general hospital (02) | DRG 310 ==
LOC: VM.ED → VM.MS 02:00
PROVIDERS: ADMIT Nurse Practitioner Family; ATTEND Nurse Practitioner Family
DX: I48.91 Unspecified atrial fibrillation (principal); F17.200 Nicotine dependence, unspecified, uncomplicated; I50.9 Heart failure, unspecified; I25.10 Atherosclerotic heart disease of native coronary artery without angina pectoris; E11.65 Type 2 diabetes mellitus with hyperglycemia; E78.00 Pure hypercholesterolemia, unspecified; I25.2 Old myocardial infarction; J44.9 Chronic obstructive pulmonary disease, unspecified; E03.9 Hypothyroidism, unspecified; E66.9 Obesity, unspecified; D64.9 Anemia, unspecified; F41.9 Anxiety disorder, unspecified; E11.22 Type 2 diabetes mellitus with diabetic chronic kidney disease; Z95.5 Presence of coronary angioplasty implant and graft; F17.210 Nicotine dependence, cigarettes, uncomplicated; Z79.02 Long term (current) use of antithrombotics/antiplatelets; N18.9 Chronic kidney disease, unspecified; M19.90 Unspecified osteoarthritis, unspecified site; N18.30 Chronic kidney disease, stage 3 unspecified; Z88.8 Allergy status to other drugs, medicaments and biological substances; K21.9 Gastro-esophageal reflux disease without esophagitis; Z88.1 Allergy status to other antibiotic agents; Z95.1 Presence of aortocoronary bypass graft; Z95.2 Presence of prosthetic heart valve; Z79.01 Long term (current) use of anticoagulants; Z79.84 Long term (current) use of oral hypoglycemic drugs; Z79.82 Long term (current) use of aspirin; Z79.899 Other long term (current) drug therapy; Z79.890 Hormone replacement therapy; Z98.890 Other specified postprocedural states; Z68.33 Body mass index [BMI] 33.0-33.9, adult
CPT/HCPCS: 36415; 71045; 80048; 80053; 82947; 83735; 83880; 84484; 85025; 85027; 85610; 85730; 86140; 93005; 96374; 99285-25; A9270-GY; J3490

== ENCOUNTER 2024-04-26 20:46 | Emergency (ER) | payer MEDICAID ==
[2024-04-26 21:16] LABS: BASOPHILS PERCENT AUTO 0.1 % (0.2-1.2); EOSINOPHILS ABSOLUTE AUTO 0.2 x10^3/uL (0.0-0.5); EOSINOPHILS PERCENT AUTO 1.9 % (0.0-4.0); HEMATOCRIT 37.2 % (40.0-52.0); HEMOGLOBIN 12.8 g/dL (14.0-18.0); LYMPHOCYTES ABSOLUTE AUTO 1.9 x10^3/uL (1.0-4.8); LYMPHOCYTES PERCENT AUTO 22.4 % (25.0-50.0); MEAN CORPUSCULAR HEMOGLOBIN 28.6 pg (26.0-32.0); MEAN CORPUSCULAR HGB CONC 34.4 g/dL (32.0-36.0); MEAN CORPUSCULAR VOLUME 83.2 fL (78.0-93.0); MONOCYTES ABSOLUTE AUTO 0.7 x10^3/uL (0.0-0.8); MONOCYTES PERCENT AUTO 8.5 % (2.0-11.0); NEUTROPHILS ABSOLUTE AUTO 5.6 x10^3/uL (1.8-7.7); NEUTROPHILS PERCENT AUTO 67.1 % (50.0-80.0); PLATELET COUNT,PLT 173 x10^3/uL (130-400); RED BLOOD CELL COUNT 4.47 x10^6/uL (4.5-6.0); WHITE BLOOD CELL COUNT,WBC 8.4 x10^3/uL (4.0-10.0)
[2024-04-26 21:23] LABS: APPEARANCE,URINE CLEAR (CLEAR); BILIRUBIN,URINE NEGATIVE (NEGATIVE); COLOR,URINE YELLOW (YELLOW); GLUCOSE,URINE NEGATIVE (NEGATIVE); KETONES,URINE NEGATIVE (NEGATIVE); LEUKOCYTE ESTERASE,URINE NEGATIVE (NEGATIVE); NITRITE,URINE NEGATIVE (NEGATIVE); OCCULT BLOOD,URINE NEGATIVE (NEGATIVE); PROTEIN,URINE NEGATIVE (NEGATIVE); UROBILINOGEN,URINE 0.2 EU/dL (0.2)
[2024-04-26 21:26] VITALS: PULSE 69
[2024-04-26 21:38] LABS: A/G RATIO 0.92; ALBUMIN 3.5 g/dL (3.4-5.0); BILIRUBIN TOTAL 0.5 mg/dL (0.2-1.0); CALCIUM 8.4 mg/dL (8.5-10.1); CREATININE 1.8 mg/dL (0.70-1.30); EST CRCL DRUG DOSING (CG) 38.89 mL/min; POTASSIUM,K 4.1 mmol/L (3.5-5.1); PROTEIN TOTAL,TP 7.3 g/dL (6.4-8.2)
[2024-04-26 21:43] LABS: ANION GAP 17.1 mmol/L (5-15)
[2024-04-26 22:31] VITALS: BP 175/64
== END 2024-04-26 22:36 | disposition home or self-care (01) ==
LOC: VM.ED 20:46
DX: R07.89 Other chest pain (principal); R10.12 Left upper quadrant pain; I50.9 Heart failure, unspecified; E78.00 Pure hypercholesterolemia, unspecified; J44.9 Chronic obstructive pulmonary disease, unspecified; N19 Unspecified kidney failure; E11.22 Type 2 diabetes mellitus with diabetic chronic kidney disease; E03.9 Hypothyroidism, unspecified; E66.9 Obesity, unspecified; Z68.33 Body mass index [BMI] 33.0-33.9, adult; Z79.899 Other long term (current) drug therapy; Z79.82 Long term (current) use of aspirin; Z79.84 Long term (current) use of oral hypoglycemic drugs; Z88.1 Allergy status to other antibiotic agents; Z88.8 Allergy status to other drugs, medicaments and biological substances
CPT/HCPCS: 36415; 74019; 80053; 81003; 84484; 85025; 93005; 93010; 99284; 99285

== ENCOUNTER 2024-05-01 15:19 | Emergency (ER) | payer MEDICAID ==
[2024-05-01] MEDS: Aspirin 81 MG Tab.Chew PO ONE (15:35)
[2024-05-01] MEDS: Sodium Chloride 0.9% 10 ML Syringe FLUSH PRN (15:45)
[2024-05-01 15:47] LABS: BASOPHILS PERCENT AUTO 0.2 % (0.2-1.2); EOSINOPHILS ABSOLUTE AUTO 0.1 x10^3/uL (0.0-0.5); EOSINOPHILS PERCENT AUTO 1.6 % (0.0-4.0); HEMATOCRIT 40.7 % (40.0-52.0); HEMOGLOBIN 13.7 g/dL (14.0-18.0); IMMATURE GRAN ABSOLUTE AUTO 0.01 x10^3/uL (0.00-0.07); LYMPHOCYTES ABSOLUTE AUTO 1.7 x10^3/uL (1.0-4.8); LYMPHOCYTES PERCENT AUTO 21.1 % (25.0-50.0); MEAN CORPUSCULAR HEMOGLOBIN 28.5 pg (26.0-32.0); MEAN CORPUSCULAR HGB CONC 33.7 g/dL (32.0-36.0); MEAN CORPUSCULAR VOLUME 84.6 fL (78.0-93.0); MONOCYTES ABSOLUTE AUTO 0.6 x10^3/uL (0.0-0.8); MONOCYTES PERCENT AUTO 7.4 % (2.0-11.0); NEUTROPHILS ABSOLUTE AUTO 5.7 x10^3/uL (1.8-7.7); NEUTROPHILS PERCENT AUTO 69.6 % (50.0-80.0); PLATELET COUNT,PLT 191 x10^3/uL (130-400); RED BLOOD CELL COUNT 4.81 x10^6/uL (4.5-6.0); WHITE BLOOD CELL COUNT,WBC 8.1 x10^3/uL (4.0-10.0)
[2024-05-01 16:00] LABS: INR 1.2 (0.9-1.1); PROTHROMBIN TIME 12.3 SEC (8.9-11.5); PTT,PARTIAL THROMBOPLSTIN TIME 40.8 SEC (21.9-33.8)
[2024-05-01 16:07] LABS: LACTIC ACID 2.1 mmol/L (0.4-2.0)
[2024-05-01 16:14] LABS: A/G RATIO 0.85; ALANINE AMINOTRANSFERASE,ALT 20 U/L (16-63); ALBUMIN 3.5 g/dL (3.4-5.0); ALKALINE PHOSPHATASE 70 U/L (46-116); ANION GAP 18.1 mmol/L (5-15); ASPARTATE AMNIOTRANSFERASE,AST 15 U/L (15-37); BILIRUBIN TOTAL 0.5 mg/dL (0.2-1.0); BLOOD UREA NITROGEN,BUN 29 mg/dL (7-18); C-REACTIVE PROTEIN < 0.50 mg/dL (<=0.50); CALCIUM 9.2 mg/dL (8.5-10.1); CARBON DIOXIDE,CO2 24 mmol/L (21-32); CHLORIDE,CL 103 mmol/L (98-107); ESTIMATED GFR 37 mL/min (>=60); GLUCOSE RANDOM 116 mg/dL (70-99); MAGNESIUM 1.4 mg/dL (1.8-2.4); POTASSIUM,K 5.1 mmol/L (3.5-5.1); PRO B-TYPE NATRIUR PEPT,BNPPRO 725 pg/mL (<=125); PROTEIN TOTAL,TP 7.6 g/dL (6.4-8.2); SODIUM,NA 140 mmol/L (136-145)
[2024-05-01 18:58] VITALS: BP 139/69; PULSE 64
[2024-05-01 19:19] LABS: LACTIC ACID 2.2 mmol/L (0.4-2.0)
== END 2024-05-01 19:33 | disposition home or self-care (01) ==
LOC: VM.ED 15:19
DX: R07.89 Other chest pain (principal); I25.10 Atherosclerotic heart disease of native coronary artery without angina pectoris; J44.9 Chronic obstructive pulmonary disease, unspecified; I50.9 Heart failure, unspecified; N18.9 Chronic kidney disease, unspecified; E11.22 Type 2 diabetes mellitus with diabetic chronic kidney disease; E66.9 Obesity, unspecified; Z68.33 Body mass index [BMI] 33.0-33.9, adult; E03.9 Hypothyroidism, unspecified; Z79.899 Other long term (current) drug therapy; Z79.82 Long term (current) use of aspirin; Z79.84 Long term (current) use of oral hypoglycemic drugs; Z88.1 Allergy status to other antibiotic agents; Z88.8 Allergy status to other drugs, medicaments and biological substances
CPT/HCPCS: 36415; 71045; 80053; 83605; 83735; 83880; 84443; 84484; 85025; 85610; 85730; 86140; 93005; 93010; 99284; 99285; A9270-GY; J3490

== ENCOUNTER 2024-12-31 17:48 | Emergency (ER) | payer MEDICAID ==
[2024-12-31] MEDS ORDERED: Sodium Chloride 0.9% 10 ML Syringe FLUSH PRN (18:06)
[2024-12-31] MEDS ORDERED: Nitroglycerin 0.4 MG Tab.SL SL PRN (18:06)
[2024-12-31] MEDS: Aspirin 81 MG Tab.Chew PO ONE (18:17)
[2024-12-31 18:29] LABS: BASOPHILS PERCENT AUTO 0.2 % (0.2-1.2); EOSINOPHILS ABSOLUTE AUTO 0.1 x10^3/uL (0.0-0.5); EOSINOPHILS PERCENT AUTO 1.4 % (0.0-4.0); HEMATOCRIT 39.3 % (40.0-52.0); HEMOGLOBIN 13.4 g/dL (14.0-18.0); IMMATURE GRAN ABSOLUTE AUTO 0.01 x10^3/uL (0.00-0.07); LYMPHOCYTES ABSOLUTE AUTO 1.7 x10^3/uL (1.0-4.8); MEAN CORPUSCULAR HEMOGLOBIN 29.4 pg (26.0-32.0); MEAN CORPUSCULAR HGB CONC 34.1 g/dL (32.0-36.0); MEAN CORPUSCULAR VOLUME 86.2 fL (78.0-93.0); MONOCYTES ABSOLUTE AUTO 0.6 x10^3/uL (0.0-0.8); MONOCYTES PERCENT AUTO 9.8 % (2.0-11.0); NEUTROPHILS ABSOLUTE AUTO 3.4 x10^3/uL (1.8-7.7); NEUTROPHILS PERCENT AUTO 59.4 % (50.0-80.0); PLATELET COUNT,PLT 168 x10^3/uL (130-400); RED BLOOD CELL COUNT 4.56 x10^6/uL (4.5-6.0); WHITE BLOOD CELL COUNT,WBC 5.8 x10^3/uL (4.0-10.0)
[2024-12-31 18:49] LABS: APPEARANCE,URINE CLEAR (CLEAR); BILIRUBIN,URINE NEGATIVE (NEGATIVE); COLOR,URINE YELLOW (YELLOW); GLUCOSE,URINE NEGATIVE (NEGATIVE); KETONES,URINE NEGATIVE (NEGATIVE); LEUKOCYTE ESTERASE,URINE NEGATIVE (NEGATIVE); NITRITE,URINE NEGATIVE (NEGATIVE); OCCULT BLOOD,URINE NEGATIVE (NEGATIVE); PROTEIN,URINE NEGATIVE (NEGATIVE); UROBILINOGEN,URINE 0.2 EU/dL (0.2)
[2024-12-31 18:49] LABS: A/G RATIO 0.79; ALANINE AMINOTRANSFERASE,ALT 29 U/L (16-63); ALBUMIN 3.4 g/dL (3.4-5.0); ALKALINE PHOSPHATASE 66 U/L (46-116); AMYLASE 90 U/L (25-115); ANION GAP 13.3 mmol/L (5-15); ASPARTATE AMNIOTRANSFERASE,AST 25 U/L (15-37); BILIRUBIN TOTAL 0.6 mg/dL (0.2-1.0); BLOOD UREA NITROGEN,BUN 29 mg/dL (7-18); CALCIUM 8.5 mg/dL (8.5-10.1); CARBON DIOXIDE,CO2 28 mmol/L (21-32); CHLORIDE,CL 99 mmol/L (98-107); ESTIMATED GFR 37 mL/min (>=60); GLUCOSE RANDOM 107 mg/dL (70-99); LIPASE 62 U/L (19-71); MAGNESIUM 2.2 mg/dL (1.8-2.4); POTASSIUM,K 4.3 mmol/L (3.5-5.1); PROTEIN TOTAL,TP 7.7 g/dL (6.4-8.2); SODIUM,NA 136 mmol/L (136-145)
[2024-12-31 18:53] LABS: AMPHETAMINES SCREEN, URINE NEGATIVE (NEGATIVE); BARBITURATE SCREEN,URINE NEGATIVE (NEGATIVE); BENZODIAZEPINES SCREEN,URINE NEGATIVE (NEGATIVE); BUPRENORPHINE SCREEN,URINE NEGATIVE (NEGATIVE); COCAINE METABOLITES,URINE NEGATIVE (NEGATIVE); METHADONE SCREEN, URINE NEGATIVE (NEGATIVE); METHAMPHETAMINE SCREEN, URINE NEGATIVE (NEGATIVE); OXYCODONE SCREEN,URINE NEGATIVE (NEGATIVE); PCP SCREEN,URINE NEGATIVE (NEGATIVE); THC SCREEN,URINE 50 NG/ML NEGATIVE (NEGATIVE)
[2024-12-31 18:54] LABS: INR 1.2 (0.9-1.1); PROTHROMBIN TIME 12.4 SEC (9.6-12.0)
[2024-12-31 18:56] LABS: D-DIMER QUANTITATIVE 0.36 mg/LFEU (<=0.58); PTT,PARTIAL THROMBOPLSTIN TIME 39.2 SEC (23.5-33.2)
[2024-12-31 19:36] VITALS: PULSE 47
[2025-01-01 03:30] VITALS: BP 123/61
== END 2024-12-31 20:36 | disposition home or self-care (01) ==
LOC: VM.ED 17:48
DX: K80.20 Calculus of gallbladder without cholecystitis without obstruction (principal); I50.9 Heart failure, unspecified; I25.10 Atherosclerotic heart disease of native coronary artery without angina pectoris; I25.2 Old myocardial infarction; I48.91 Unspecified atrial fibrillation; J44.9 Chronic obstructive pulmonary disease, unspecified; N18.30 Chronic kidney disease, stage 3 unspecified; K21.9 Gastro-esophageal reflux disease without esophagitis; E11.22 Type 2 diabetes mellitus with diabetic chronic kidney disease; E66.9 Obesity, unspecified; E03.9 Hypothyroidism, unspecified; Z95.5 Presence of coronary angioplasty implant and graft; Z79.84 Long term (current) use of oral hypoglycemic drugs; Z79.01 Long term (current) use of anticoagulants; Z79.82 Long term (current) use of aspirin; Z79.890 Hormone replacement therapy; Z79.899 Other long term (current) drug therapy; Z88.8 Allergy status to other drugs, medicaments and biological substances; Z88.1 Allergy status to other antibiotic agents; Z68.32 Body mass index [BMI] 32.0-32.9, adult
CPT/HCPCS: 36415; 71045; 74176; 80053; 80305-QW; 81003; 82150; 83690; 83735; 84484; 85025; 85379; 85610; 85730; 93005; 93010; 99284; 99285; A9270-GY

== ENCOUNTER 2025-01-04 14:48 | Emergency (ER) | payer MEDICAID ==
[2025-01-04 15:09] LABS: EOSINOPHILS PERCENT AUTO 0.6 % (0.0-4.0); HEMATOCRIT 40.9 % (40.0-52.0); HEMOGLOBIN 13.7 g/dL (14.0-18.0); IMMATURE GRAN ABSOLUTE AUTO 0.01 x10^3/uL (0.00-0.07); LYMPHOCYTES ABSOLUTE AUTO 1.6 x10^3/uL (1.0-4.8); LYMPHOCYTES PERCENT AUTO 22.9 % (25.0-50.0); MEAN CORPUSCULAR HEMOGLOBIN 28.9 pg (26.0-32.0); MEAN CORPUSCULAR HGB CONC 33.5 g/dL (32.0-36.0); MEAN CORPUSCULAR VOLUME 86.3 fL (78.0-93.0); MONOCYTES ABSOLUTE AUTO 0.6 x10^3/uL (0.0-0.8); MONOCYTES PERCENT AUTO 8.1 % (2.0-11.0); NEUTROPHILS ABSOLUTE AUTO 4.9 x10^3/uL (1.8-7.7); NEUTROPHILS PERCENT AUTO 68.3 % (50.0-80.0); PLATELET COUNT,PLT 179 x10^3/uL (130-400); RED BLOOD CELL COUNT 4.74 x10^6/uL (4.5-6.0); WHITE BLOOD CELL COUNT,WBC 7.1 x10^3/uL (4.0-10.0)
[2025-01-04 15:16] VITALS: PULSE 54
[2025-01-04 15:25] LABS: ANION GAP 16.3 mmol/L (5-15); CALCIUM 8.7 mg/dL (8.5-10.1); MAGNESIUM 1.8 mg/dL (1.8-2.4); POTASSIUM,K 4.3 mmol/L (3.5-5.1)
[2025-01-04 16:12] VITALS: BP 162/69
== END 2025-01-04 16:55 | disposition home or self-care (01) ==
LOC: SUPCPDRO 14:48 → VM.ED 14:48
DX: R07.9 Chest pain, unspecified (principal); I25.2 Old myocardial infarction; K21.9 Gastro-esophageal reflux disease without esophagitis; E78.00 Pure hypercholesterolemia, unspecified; E66.9 Obesity, unspecified; E11.9 Type 2 diabetes mellitus without complications; E03.9 Hypothyroidism, unspecified; Z88.1 Allergy status to other antibiotic agents; Z88.8 Allergy status to other drugs, medicaments and biological substances; Z79.82 Long term (current) use of aspirin; Z79.84 Long term (current) use of oral hypoglycemic drugs; Z79.890 Hormone replacement therapy; Z79.899 Other long term (current) drug therapy; Z68.31 Body mass index [BMI] 31.0-31.9, adult
CPT/HCPCS: 36415; 71045; 80048; 83735; 84484; 85025; 93005; 99285

== ENCOUNTER 2025-09-12 15:02 | Inpatient (IN) | payer MEDICAID ==
[2025-09-12] MEDS ORDERED: Sodium Chloride 0.9% 10 ML Syringe FLUSH PRN (15:26)
[2025-09-12 15:33] LABS: BASOPHILS ABSOLUTE AUTO 0.0 x10^3/uL (0.0-0.2); BASOPHILS PERCENT AUTO 0.3 % (0.2-1.2); EOSINOPHILS ABSOLUTE AUTO 0.1 x10^3/uL (0.0-0.5); EOSINOPHILS PERCENT AUTO 1.5 % (0.0-4.0); IMMATURE GRAN ABSOLUTE AUTO 0.01 x10^3/uL (0.00-0.07); IMMATURE GRAN PERCENT AUTO 0.10 % (0.00-0.43); LYMPHOCYTES ABSOLUTE AUTO 1.4 x10^3/uL (1.0-4.8); LYMPHOCYTES PERCENT AUTO 15.3 % (25.0-50.0); MONOCYTES ABSOLUTE AUTO 1.0 x10^3/uL (0.0-0.8); MONOCYTES PERCENT AUTO 11.0 % (2.0-11.0); NEUTROPHILS ABSOLUTE AUTO 6.7 x10^3/uL (1.8-7.7); NEUTROPHILS PERCENT AUTO 71.8 % (50.0-80.0); PLATELET COUNT,PLT 194 x10^3/uL (130-400); RED BLOOD CELL COUNT 4.55 x10^6/uL (4.5-6.0); WHITE BLOOD CELL COUNT,WBC 9.4 x10^3/uL (4.0-10.0)
[2025-09-12 15:47] LABS: A/G RATIO 0.75; ALANINE AMINOTRANSFERASE,ALT 25 U/L (16-63); ASPARTATE AMNIOTRANSFERASE,AST 23 U/L (15-37); BILIRUBIN TOTAL 0.8 mg/dL (0.2-1.0); BLOOD UREA NITROGEN,BUN 47 mg/dL (7-18); CARBON DIOXIDE,CO2 26 mmol/L (21-32); CHLORIDE,CL 95 mmol/L (98-107); ESTIMATED GFR 21 mL/min (>=60); GLUCOSE RANDOM 131 mg/dL (70-99); POTASSIUM,K 4.0 mmol/L (3.5-5.1); PROTEIN TOTAL,TP 8.4 g/dL (6.4-8.2); SODIUM,NA 138 mmol/L (136-145)
[2025-09-12 15:48] LABS: CREATININE 3.2 mg/dL (0.70-1.30)
[2025-09-12] MEDS: Diltiazem 50 MG/10 ML SDV IVPUSH ONE (16:54)
[2025-09-12] MEDS ORDERED: Albuterol HFA 18 Gm Inhaler INH PRN (17:48)
[2025-09-12] MEDS ORDERED: Nitroglycerin 0.4 MG Tab.SL SL PRN (17:48)
[2025-09-12] MEDS ORDERED: Diltiazem 50 MG/10 ML SDV IVPUSH PRN (19:12)
[2025-09-13 06:39] LABS: BASOPHILS ABSOLUTE AUTO 0.0 x10^3/uL (0.0-0.2); BASOPHILS PERCENT AUTO 0.2 % (0.2-1.2); EOSINOPHILS ABSOLUTE AUTO 0.1 x10^3/uL (0.0-0.5); EOSINOPHILS PERCENT AUTO 2.1 % (0.0-4.0); IMMATURE GRAN ABSOLUTE AUTO 0.01 x10^3/uL (0.00-0.07); IMMATURE GRAN PERCENT AUTO 0.20 % (0.00-0.43); LYMPHOCYTES ABSOLUTE AUTO 1.5 x10^3/uL (1.0-4.8); LYMPHOCYTES PERCENT AUTO 23.0 % (25.0-50.0); MONOCYTES ABSOLUTE AUTO 0.7 x10^3/uL (0.0-0.8); MONOCYTES PERCENT AUTO 10.7 % (2.0-11.0); NEUTROPHILS ABSOLUTE AUTO 4.2 x10^3/uL (1.8-7.7); NEUTROPHILS PERCENT AUTO 63.8 % (50.0-80.0); PLATELET COUNT,PLT 146 x10^3/uL (130-400); RED BLOOD CELL COUNT 3.78 x10^6/uL (4.5-6.0); WHITE BLOOD CELL COUNT,WBC 6.6 x10^3/uL (4.0-10.0)
[2025-09-13 06:53] LABS: BLOOD UREA NITROGEN,BUN 41.0 mg/dL (7-18); CARBON DIOXIDE,CO2 27.0 mmol/L (21-32); CHLORIDE,CL 100.0 mmol/L (98-107); CREATININE 2.8 mg/dL (0.70-1.30); EST CRCL DRUG DOSING (CG) 24.68 mL/min; GLUCOSE RANDOM 85.0 mg/dL (70-99); POTASSIUM,K 4.0 mmol/L (3.5-5.1); SODIUM,NA 138.0 mmol/L (136-145)
[2025-09-13 06:54] LABS: ESTIMATED GFR 25.0 mL/min (>=60)
[2025-09-13] MEDS: Cholecalciferol (Vitamin D3) 25 MCG Tab PO SCH (08:28)
[2025-09-13] MEDS: Aspirin 325 MG Tab.EC PO SCH (08:29)
[2025-09-13] MEDS: Semaglutide [Rybelsus] 7 MG Tablet PO SCH (09:54)
[2025-09-13] MEDS: SEMAGLUTIDE 3 MG PO SCH (09:56)
[2025-09-13 11:28] LABS: TSH ULTRASENSITIVE 0.134 uIU/mL (0.358-3.74)
[2025-09-13 14:02] VITALS: BP 140/69; PULSE 89
== END 2025-09-13 13:45 | disposition home or self-care (01) | DRG 682 ==
LOC: VM.ED 15:02 → VM.MS 16:54
PROVIDERS: ADMIT Nurse Practitioner Family; ATTEND Family Medicine
DX: N17.9 Acute kidney failure, unspecified (principal); I21.4 Non-ST elevation (NSTEMI) myocardial infarction; I13.0 Hypertensive heart and chronic kidney disease with heart failure and stage 1 through stage 4 chronic kidney disease, or unspecified chronic kidney disease; I50.32 Chronic diastolic (congestive) heart failure; I48.0 Paroxysmal atrial fibrillation; E83.41 Hypermagnesemia; I48.91 Unspecified atrial fibrillation; N18.30 Chronic kidney disease, stage 3 unspecified; E86.0 Dehydration; F17.210 Nicotine dependence, cigarettes, uncomplicated; F43.20 Adjustment disorder, unspecified; I50.9 Heart failure, unspecified; N18.9 Chronic kidney disease, unspecified; E11.22 Type 2 diabetes mellitus with diabetic chronic kidney disease; E78.5 Hyperlipidemia, unspecified; E03.9 Hypothyroidism, unspecified; J44.9 Chronic obstructive pulmonary disease, unspecified; E11.65 Type 2 diabetes mellitus with hyperglycemia; I25.10 Atherosclerotic heart disease of native coronary artery without angina pectoris; J43.9 Emphysema, unspecified; D63.1 Anemia in chronic kidney disease; K21.9 Gastro-esophageal reflux disease without esophagitis; M19.90 Unspecified osteoarthritis, unspecified site; F41.9 Anxiety disorder, unspecified; E66.9 Obesity, unspecified; Z95.5 Presence of coronary angioplasty implant and graft; Z95.2 Presence of prosthetic heart valve; Z98.49 Cataract extraction status, unspecified eye; Z88.1 Allergy status to other antibiotic agents; Z93.0 Tracheostomy status; Z88.8 Allergy status to other drugs, medicaments and biological substances; Z79.84 Long term (current) use of oral hypoglycemic drugs; Z79.899 Other long term (current) drug therapy; Z79.01 Long term (current) use of anticoagulants; Z79.82 Long term (current) use of aspirin; Z79.890 Hormone replacement therapy; Z86.74 Personal history of sudden cardiac arrest; Z68.27 Body mass index [BMI] 27.0-27.9, adult; Z98.890 Other specified postprocedural states; Z93.1 Gastrostomy status
CPT/HCPCS: 36415; 71046; 80048; 80053; 82947; 83735; 84443; 84484; 85014; 85018; 85025; 93005; 93010; 94640; 96374; 99284; 99285-25; A9270-GY; J3490; J7030